=== PATIENT | female | born 1960 | race African-American/Black ===

== ENCOUNTER 2017-08-21 19:51 | Inpatient (IN) | payer OTHER, MEDICARE ==
[~2017-08-21] VITALS: Ht 162.6 cm; Wt 104.0 kg
[~2017-08-21 19:51] MED LIST: DICL-86 PO; HYDR10TA16 PO; LISI10TA PO; METH500T3 PO; XANA1TAB6 PO
[2017-08-21 19:53] VITALS: BP 135/64; PULSE 107; RESP 20; TEMP 101.7; O2SAT 97
[2017-08-21] MEDS ORDERED: ALPR1TAB3 PO (20:03)
[2017-08-21] MEDS ORDERED: PANT40TA3 PO (20:03)
[2017-08-21] MEDS ORDERED: LEXA10TA PO (20:03)
[2017-08-21] MEDS ORDERED: LIDO1CRE31 TOPICAL (20:06)
[2017-08-21] MEDS ORDERED: OXYC30TA PO (20:06)
[2017-08-21] MEDS ORDERED: FENT50DI T-DERMAL (20:06)
--- NOTE | 2017-08-21 20:43 | PD ---
HPI Chief Complaint: Fever Time Seen by Provider: 20:38 Travel History International Travel<30 days: No Contact w/Intl Traveler<30days: No Traveled to known affect area: No History of Present Illness HPI PATIANGELIC RECENTLY STARTED CHEMO, AND NOW HAS DEVELOPED FEVER. CONTINUES TO COMPLAIN OF ABD PAIN (BASED ON DR STEVENSON'S NOTE WHICH WAS REVIEWED THERE'S EVIDENCE OF POORLY DIFFERENTIATED METASTATIC CANCER). and per family has not been herself, not recognizing family and taking a long time to reply back or to recognize family. on aug 15 patient was started on chemo. at the same time due to her chronic abd pain complaint to dr stevenson, he decided to increase fentanyl patch, increase roxycet as well. family noticed patients increase confusion the day after these changes. chart and rn notes reviewed PFSH Past Medical History Arthritis: Yes Anxiety: Yes Cancer: Yes (LIVER) Cardiovascular Problems: Yes High Cholesterol: Yes Diabetes: No Diminished Hearing: No Hepatitis: Yes Hypertension: Yes Tetanus Vaccination: > 5 Years Influenza Vaccination: No : 2 Para: 2 Past Surgical History Hysterectomy: Yes Family History Family Myocardial Infarction: Yes Social History Alcohol Use: Yes (OCCASIONALLY BEER AND ALCOHOL) Tobacco Use: Yes Substance Use: No Allergies-Medications (Allergen,Severity, Reaction): Coded Allergies: Iodinated Contrast- Oral and IV Dye (Verified Allergy, Unknown, 08/21/17) Reported Meds & Prescriptions Reported Meds & Active Scripts Active Reported Lidopril Topical (Lidocaine-Prilocaine Topical) 2.5-2.5 % Cream 1 Applic TOPICAL BID PRN Fentanyl Patch 72 HR (Fentanyl) 50 Mcg/Hr Patch 50 Mcg T-DERMAL Q72H Remove old patch when new one placed. Oxycodone (Oxycodone HCl) 30 Mg Tab 30 Mg PO Q8H PRN Alprazolam 1 Mg Tab 1 Mg PO BID PRN Lexapro (Escitalopram Oxalate) 10 Mg Tab 10 Mg PO DAILY Pantoprazole (Pantoprazole Sodium) 40 Mg Tab 40 Mg PO DAILY Review of Systems Except as stated in HPI: all other systems reviewed are Neg General / Constitutional: Positive: Fever (ON CHEMO) Eyes: No: Visual changes HENT: No: Headaches Cardiovascular: No: Chest Pain or Discomfort Respiratory: No: Shortness of Breath Gastrointestinal: Positive: Abdominal Pain Genitourinary: No: Dysuria Musculoskeletal: No: Pain Skin: No Rash Neurologic: No: Weakness Psychiatric: No: Depression Endocrine: No: Polydipsia Hematologic/Lymphatic: No: Easy Bruising Physical Exam Narrative GENERAL: SKIN: Warm and dry. HEAD: Atraumatic. Normocephalic. EYES: Pupils equal and round. No scleral icterus. No injection or drainage. ENT: No nasal bleeding or discharge. Mucous membranes pink and moist. NECK: Trachea midline. No JVD. CARDIOVASCULAR: Regular rate and rhythm. RESPIRATORY: No accessory muscle use. Clear to auscultation. Breath sounds equal bilaterally. GASTROINTESTINAL: Abdomen soft, mildly tender over ruq , nondistended MUSCULOSKELETAL: Extremities without clubbing, cyanosis, or edema. No obvious deformities. NEUROLOGICAL: Awake and alert. No obvious cranial nerve deficits. Motor grossly within normal limits. Five out of 5 muscle strength in the arms and legs. Normal speech. PSYCHIATRIC: Appropriate mood and affect; insight and judgment normal. Data Data Last Documented VS Orders Orders Complete Blood Count With Diff (08/21/17 20:19) Comprehensive Metabolic Panel (08/21/17 20:19) Urinalysis - C+S If Indicated (08/21/17 20:19) Lactic Acid Sepsis Protocol (08/21/17 20:19) Blood Culture (08/21/17 20:19) Iv Access Insert/Monitor (08/21/17 20:19) Oxygen Administration (08/21/17 20:19) Oximetry (08/21/17 20:19) Cefepime Inj (Maxipime Inj) (08/21/17 20:44) Sodium Chlor 0.9% 1000 Ml Inj (Ns 1000 M (08/21/17 20:44) Abdomen, Flat & Upright (08/21/17 ) Ct Brain W/O Iv Contrast(Rout) (08/21/17 21:29) Admit To Inpatient (08/22/17 ) Vital Signs (Adult) Q4H (08/22/17 00:12) Activity Oob With Assistance (08/22/17 00:12) Envelope Fold Operator / Telemetry .CONTINUOUS (08/22/17 00:12) Sodium Chloride 0.9% Flush (Ns Flush) (08/22/17 00:15) Sodium Chloride 0.9% Flush (Ns Flush) (08/22/17 09:00) Basic Metabolic Panel (Bmp) (08/22/17 06:00) Complete Blood Count With Diff (08/22/17 06:00) Pt Request For Service (08/22/17 00:12) Case Management Consult (08/22/17 00:12) Naloxone Inj (Narcan Inj) (08/22/17 00:15) Inpatient Certification (08/22/17 ) Lactic Acid (08/22/17 06:00) Labs Laboratory Tests Test 08/21/17 20:29 08/21/17 23:32 08/22/17 00:01 White Blood Count 11.0 TH/MM3 Red Blood Count 2.47 MIL/MM3 Hemoglobin 7.3 GM/DL Hematocrit 23.0 % Mean Corpuscular Volume 93.3 FL Mean Corpuscular Hemoglobin 29.8 PG Mean Corpuscular Hemoglobin Concent 31.9 % Red Cell Distribution Width 20.6 % Platelet Count 66 TH/MM3 Mean Platelet Volume 8.7 FL Neutrophils (%) (Auto) 89.9 % Lymphocytes (%) (Auto) 8.3 % Monocytes (%) (Auto) 0.6 % Eosinophils (%) (Auto) 0.8 % Basophils (%) (Auto) 0.4 % Neutrophils # (Auto) 9.9 TH/MM3 Lymphocytes # (Auto) 0.9 TH/MM3 Monocytes # (Auto) 0.1 TH/MM3 Eosinophils # (Auto) 0.1 TH/MM3 Basophils # (Auto) 0.0 TH/MM3 CBC Comment AUTO DIFF Differential Comment AUTO DIFF CONFIRMED Platelet Estimate LOW Platelet Morphology Comment NORMAL Tear Drop Cells 1+ Ovalocytes 1+ Blood Urea Nitrogen 9 MG/DL Creatinine 0.80 MG/DL Random Glucose 122 MG/DL Total Protein 8.0 GM/DL Albumin 2.0 GM/DL Calcium Level 9.0 MG/DL Alkaline Phosphatase 141 U/L Aspartate Amino Transf (AST/SGOT) 46 U/L Alanine Aminotransferase (ALT/SGPT) 7 U/L Total Bilirubin 1.4 MG/DL Sodium Level 136 MEQ/L Potassium Level 4.4 MEQ/L Chloride Level 106 MEQ/L Carbon Dioxide Level 23.8 MEQ/L Anion Gap 6 MEQ/L Estimat Glomerular Filtration Rate 89 ML/MIN Lactic Acid Level 2.3 mmol/L 2.6 mmol/L Urine Color YELLOW Urine Turbidity HAZY Urine pH 6.0 Urine Specific [place] 1.019 Urine Protein 30 mg/dL Urine Glucose (UA) NEG mg/dL Urine Ketones NEG mg/dL Urine Occult Blood SMALL Urine Nitrite NEG Urine Bilirubin NEG Urine Urobilinogen 2.0 MG/DL Urine Leukocyte Esterase LARGE Urine RBC 50 /hpf Urine WBC /hpf Urine WBC Clumps FEW Urine Squamous Epithelial Cells 1 /hpf Urine Bacteria FEW /hpf Urine Mucus FEW /lpf Microscopic Urinalysis Comment CULTURE INDICATED MDM Medical Decision Making Medical Screen Exam Complete: Yes Emergency Medical Condition: Yes Medical Record Reviewed: Yes Differential Diagnosis UTI V PNA V NEUTROPENIC FEVER v fuo Narrative Course patient found to have mild lactic acidosis, anemia on cbc, although no leukocytosis pt had left shift neutrophilia found...due to these findings and h/ o chemo, patient empirically treated with ivf and cefepime. patient will be admitted to hospital for further treatment. in my estmation, her confusion is most likely due to increase in narcotic medication with decreased liver metbolism due to mets and hep c. Critical Care Narrative CRITICAL CARE NOTE: With evaluation of the patient, labs, EKG, receipt of radiologic studies, administration of medications, reevaluation the patient and discussion of the patient with the admitting physicians, the total critical care time was [45] minutes. Time to perform other separately billable procedures was not included in the critical care time. Diagnosis Primary Impression: Fever of unknown origin (FUO) Additional Impression: fever on chemotherapy Admitting Information Admitting Physician Requests: Admit Ruddy Mo MD Aug 21, 2017 20:43
[2017-08-21] MEDS ORDERED: SODIUM CHLOR 0.9% 1000 ML INJ 1,000 ML IV ONE (20:44)
[2017-08-21] MEDS ORDERED: CEFEPIME INJ 2,000 MG in SODIUM CHLORIDE 0.9% INJ 100 ML IV STA (20:44)
[2017-08-21 20:49] LABS: AUTOMATED NEUTROPHIL # 9.9 TH/MM3 (1.8-7.7); BASOPHIL % 0.4 % (0.0-2.0); EOSINOPHIL # 0.1 TH/MM3 (0-0.4); EOSINOPHIL % 0.8 % (0.0-4.0); LYMPH % 8.3 % (9.0-44.0); LYMPHOCYTE # 0.9 TH/MM3 (1.0-4.8); MEAN CELL VOLUME 93.3 FL (80.0-100.0); MEAN CORPUSCULAR HEMOGLOBIN 29.8 PG (27.0-34.0); MEAN CORPUSCULAR HGB CONC 31.9 % (32.0-36.0); MONO % 0.6 % (0.0-8.0); NEUT % 89.9 % (16.0-70.0); PLATELET COUNT 66 TH/MM3 (150-450); RED BLOOD COUNT 2.47 MIL/MM3 (4.00-5.30); RED CELL DISTRIBUTION WIDTH 20.6 % (11.6-17.2)
[2017-08-21 20:53] LABS: HEMO FLAGS AUTO DIFF
[2017-08-21 20:58] LABS: ANION GAP 6 MEQ/L (5-15); AST (GOT) 46 U/L (15-37); BICARBONATE 23.8 MEQ/L (21.0-32.0); BLOOD UREA NITROGEN 9 MG/DL (7-18); CHLORIDE 106 MEQ/L (98-107); GLOMERULAR FILTRATION RATE 89 ML/MIN (>89); POTASSIUM 4.4 MEQ/L (3.5-5.1); SODIUM (NA) 136 MEQ/L (136-145)
[2017-08-21 20:59] LABS: ALT (GPT) 7 U/L (10-53)
[2017-08-21 21:01] LABS: ALKALINE PHOSPHATASE 141 U/L (45-117); TOTAL BILIRUBIN ADULT 1.4 MG/DL (0.2-1.0)
[2017-08-21 21:26] LABS: PLATELET ESTIMATE SMEAR LOW (NORMAL); PLATELET MORPHOLOGY NORMAL (NORMAL); SCAN/DIFF AUTO DIFF CONFIRMED
[2017-08-21 21:27] LABS: TEARDROP RBCS 1+ (NORMAL)
[2017-08-21 21:28] LABS: OVALOCYTES 1+ (NORMAL)
--- NOTE | 2017-08-21 22:03 | RADRPT ---
EXAM DATE/TIME: 08/21/2017 21:53 [facility] COMPARISON: No previous studies available for comparison. INDICATIONS : Altered mental status. Fever. RADIATION DOSE: 41.22 CTDIvol (mGy) MEDICAL HISTORY : Hypertension. Liver cancer. Chemotherapy. SURGICAL HISTORY : None. ENCOUNTER: Initial ACUITY: 1 day PAIN SCALE: 0/10 LOCATION: cranial TECHNIQUE: Multiple contiguous axial images were obtained of the head. Using automated exposure control and adj ustment of the mA and/or kV according to patient size, radiation dose was kept as low as reasonably a chievable to obtain optimal diagnostic quality images. DICOM format image data is available electro nically for review and comparison. FINDINGS: There is no evidence for intracranial hemorrhage, mass effect, mass lesions, edema, or extra-axial fl uid collections. The visualized bony structures appear intact. The ventricles are normal size for t he patient's age. There are no signs of acute infarction for technique. CONCLUSION: Unremarkable study. Irasema Araujo MD on August 21, 2017 at 22:02 Board Certified Radiologist. This report was verified electronically.
[2017-08-21 22:05] VITALS: BP 112/54; PULSE 96; RESP 18; TEMP 100.6; O2SAT 100
--- NOTE | 2017-08-21 22:09 | RADRPT ---
EXAM DATE/TIME: 08/21/2017 21:44 [facility] COMPARISON: No previous studies available for comparison. INDICATIONS : Abdominal pain. MEDICAL HISTORY : Hypercholesterolemia. Hypertension Hepatitis. Liver cancer. SURGICAL HISTORY : Hysterectomy. ENCOUNTER: Initial ACUITY: 1 day PAIN SCORE: Non-responsive. LOCATION: abdomen. FINDINGS: The bowel gas is nonspecific. There are no signs of obstruction or free air for technique. No defini te calcified stones are identified for technique. CONCLUSION: Nonspecific abdomen. Irasema Araujo MD on August 21, 2017 at 22:07 Board Certified Radiologist. This report was verified electronically.
[2017-08-21 22:38] LABS: LACTIC ACID GHOST NOT REPORTABLE
[2017-08-22] VITALS (11 sets, daily range): BP systolic 86–154; BP diastolic 44–80; PULSE 79–96; RESP 16–20; TEMP 98.7–101.7; O2SAT 97–100
[2017-08-22] MEDS ORDERED: NALOXONE HCL 0.4 MG/ML AMP IV PUSH PRN (00:15)
[2017-08-22] MEDS ORDERED: SODIUM CHLORIDE 0.9% FLUSH 10 ML FLUSH IV FLUSH PRN (00:15)
[2017-08-22 00:35] LABS: BACTERIA, URINE FEW /hpf; BLOOD, URINE SMALL (NEG); COMMENT (UR) CULTURE INDICATED; CULTURE IF INDICATED CULTURE INDICATED; GLUCOSE,URINE NEG (NEG); KETONE, URINE NEG (NEG); MUCUS URINE FEW /lpf (OCC); NITRITE,URINE NEG (NEG); SQUAMOUS EPITHELIAL CELL URINE 1 /hpf (0-5); URINE COLOR YELLOW (YELLW/STRAW)
[2017-08-22] MEDS ORDERED: HYDROmorphone HCL PF 0.5 MG/0.5 ML SYRINGE IV PUSH PRN (02:30)
--- NOTE | 2017-08-22 03:30 | HHI.HP ---
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 Lewis on 08/22/17 at 03:30. The patient states that she came to hospital due to severe stomach pains. She states this pain has gotten progressively worsened despite pain medication adjustments by her oncologist Dr. Camarena on August 15, 2017. The patient also endorses that her family was concerned about her being a little confused. She reports that she fell at home yesterday. She denies hitting her head when she fell. Denies syncope. She states that she lost balance when she stood to get out of bed. She reports fevers but is unsure how long she's been having fevers. She denies cough, dysuria, nausea, vomiting, or diarrhea that she can recall. Review of Systems Except as stated in HPI: all other systems reviewed are Neg Past Family Social History Past Medical History Hepatitis C without liver cirrhosis - took medication - interferon - for it - states she got rid of it Cancer Denies diabetes, hypertension, CHF, heart problems, COPD, breathing problems, kidney problems, CVA, PE, DVT, thyroid problems Past Surgical History Hysterectomy 2 back surgeries . Reported Medications Reported Meds & Active Scripts Active Reported Lidopril Topical (Lidocaine-Prilocaine Topical) 2.5-2.5 % Cream 1 Applic TOPICAL BID PRN Fentanyl Patch 72 HR (Fentanyl) 50 Mcg/Hr Patch 50 Mcg T-DERMAL Q72H Remove old patch when new one placed. Oxycodone (Oxycodone HCl) 30 Mg Tab 30 Mg PO Q8H PRN Alprazolam 1 Mg Tab 1 Mg PO BID PRN Lexapro (Escitalopram Oxalate) 10 Mg Tab 10 Mg PO DAILY Pantoprazole (Pantoprazole Sodium) 40 Mg Tab 40 Mg PO DAILY . Allergies: Coded Allergies: Iodinated Contrast- Oral and IV Dye (Verified Allergy, Unknown, 08/21/17) Active Ordered Medications Current Medications Cefepime HCl 2000 mg/Sodium Chloride 100 ml @ 200 mls/hr ONCE STAT IV Last administered on 08/21/17 22:13; Start 08/21/17 at 20:44; Stop 08/21/17 at 21 :13; Status DC Sodium Chloride 1,000 ml @ 1,000 mls/hr Q1H ONCE IV Last administered on 08/21 21:28; Start 08/21/17 at 20:44; Stop 08/21/17 at 21:43; Status DC Sodium Chloride (NS Flush) 2 ml UNSCH PRN IV FLUSH FLUSH AFTER USING IV ACCESS ; Start 08/22/17 at 00:15 Sodium Chloride (NS Flush) 2 ml BID IV FLUSH ; Start 08/22/17 at 09:00 Naloxone HCl (Narcan Inj) 0.4 mg UNSCH PRN IV PUSH SEE LABEL COMMENTS; Start 08/22/17 at 00:15 Cefepime HCl 2000 mg/Sodium Chloride 100 ml @ 200 mls/hr Q12H IV ; Start 08/22 at 08:00 Hydromorphone HCl (Dilaudid Pf Inj) 0.2 mg Q4H PRN IV PUSH pain >5 Last administered on 08/22/17 02:53; Start 08/22/17 at 02:30 . Family History Brother with diabetes mellitus . Social History Tobacco: quit 6 years ago Alcohol: denies heavy drinking ever Illicit Drugs: denies . Physical Exam Vital Signs Vital Signs Date Time Temp Pulse Resp B/P (MAP) Pulse Ox O2 Delivery O2 Flow Rate FiO2 08/22/17 01:53 99.8 92 18 112/66 (81) 97 08/22/17 00:30 100.1 Automatic Cuff 08/21/17 22:05 100.6 96 18 112/54 (73) 100 Room Air 08/21/17 19:53 101.7 107 20 135/64 (87) 97 Room Air Physical Exam GENERAL: This is a chronically ill-appearing patient, in no apparent distress. SKIN: No rashes. Cool and dry. HEAD: Atraumatic. Normocephalic. No temporal or scalp tenderness. EYES: No scleral icterus. No injection or drainage. ENT: Nose without bleeding, purulent drainage. Airway patent. NECK: Trachea midline. No JVD or lymphadenopathy. Supple, nontender, no meningeal signs. CARDIOVASCULAR: Regular rate and rhythm without murmurs, gallops, or rubs. RESPIRATORY: Clear to auscultation. Breath sounds equal bilaterally. No wheezes , rales, or rhonchi. GASTROINTESTINAL: Abdomen soft, nondistended. No guarding. Abdomen tender to palpation. MUSCULOSKELETAL: Extremities without clubbing, cyanosis, or edema. No calf tenderness. NEUROLOGICAL: Awake and alert. Motor and sensory grossly within normal limits. Normal speech. . Laboratory Laboratory Tests Test 08/21/17 20:29 08/21/17 23:32 08/22/17 00:01 White Blood Count 11.0 Red Blood Count 2.47 Hemoglobin 7.3 Hematocrit 23.0 Mean Corpuscular Volume 93.3 Mean Corpuscular Hemoglobin 29.8 Mean Corpuscular Hemoglobin Concent 31.9 Red Cell Distribution Width 20.6 Platelet Count 66 Mean Platelet Volume 8.7 Neutrophils (%) (Auto) 89.9 Lymphocytes (%) (Auto) 8.3 Monocytes (%) (Auto) 0.6 Eosinophils (%) (Auto) 0.8 Basophils (%) (Auto) 0.4 Neutrophils # (Auto) 9.9 Lymphocytes # (Auto) 0.9 Monocytes # (Auto) 0.1 Eosinophils # (Auto) 0.1 Basophils # (Auto) 0.0 CBC Comment AUTO DIFF Differential Comment AUTO DIFF CONFIRMED Platelet Estimate LOW Platelet Morphology Comment NORMAL Tear Drop Cells 1+ Ovalocytes 1+ Blood Urea Nitrogen 9 Creatinine 0.80 Random Glucose 122 Total Protein 8.0 Albumin 2.0 Calcium Level 9.0 Alkaline Phosphatase 141 Aspartate Amino Transf (AST/SGOT) 46 Alanine Aminotransferase (ALT/SGPT) 7 Total Bilirubin 1.4 Sodium Level 136 Potassium Level 4.4 Chloride Level 106 Carbon Dioxide Level 23.8 Anion Gap 6 Estimat Glomerular Filtration Rate 89 Lactic Acid Level 2.3 2.6 Urine Color YELLOW Urine Turbidity HAZY Urine pH 6.0 Urine Specific [place] 1.019 Urine Protein 30 Urine Glucose (UA) NEG Urine Ketones NEG Urine Occult Blood SMALL Urine Nitrite NEG Urine Bilirubin NEG Urine Urobilinogen 2.0 Urine Leukocyte Esterase LARGE Urine RBC 50 Urine WBC Urine WBC Clumps FEW Urine Squamous Epithelial Cells 1 Urine Bacteria FEW Urine Mucus FEW Microscopic Urinalysis Comment CULTURE INDICATED Date/Time Source Procedure Growth Status 08/21/17 20:30 Blood Peripheral Aerobic Blood Culture Pending Received 08/21/17 20:30 Blood Peripheral Anaerobic Blood Culture Pending Received 08/22/17 00:01 Urine Random Urine Urine Culture Pending Received Result Diagram: 08/21/[id number]/21/172028 Imaging Last Impressions Head CT 08/21/172128 Signed Impressions: Service Date/Time: Monday, August 21, 2017 21:53 - CONCLUSION: Unremarkable study. Irasema Araujo MD Abdomen X-Ray 08/21/17 0000 Signed Impressions: Service Date/Time: Monday, August 21, 2017 21:44 - CONCLUSION: Nonspecific abdomen. Irasema Araujo MD . Caprini VTE Risk Assessment Caprini VTE Risk Assessment: Mod/High Risk (score >= 2) Caprini Risk Assessment Model Point Value = 1 Point Value = 2 Point Value = 3 Point Value = 5 Age 41-60 Minor surgery BMI > 25 kg/m2 Swollen legs Varicose veins or History of unexplained or recurrent spontaneous Oral contraceptives or hormone replacement Sepsis (< 1 month) Serious lung disease, including pneumonia (< 1 month) Abnormal pulmonary function Acute myocardial infarction Congestive heart failure (< 1 month) History of inflammatory bowel disease Medical patient at bed rest Age 61-74 Arthroscopic surgery Major open surgery (> 45 min) Laparoscopic surgery (> 45 min) Malignancy Confined to bed (> 72 hours) Immobilizing plaster cast Central venous access Age >= 75 History of VTE Family history of VTE Factor V Leiden Prothrombin [id number] Lupus anticoagulant Anticardiolipin antibodies Elevated serum homocysteine Heparin-induced thrombocytopenia Other congenital or acquired thrombophilia Stroke (< 1 month) Elective arthroplasty Hip, pelvis, or leg fracture Acute spinal cord injury (< 1 month) Prophylaxis Regimen Total Risk Factor Score Risk Level Prophylaxis Regimen 0-1 Low Early ambulation 2 Moderate Order ONE of the following: *Sequential Compression Device (SCD) *Heparin 5000 units SQ BID 3-4 Higher Order ONE of the following medications: *Heparin 5000 units SQ TID *Enoxaparin/Lovenox 40 mg SQ daily (WT < 150 kg, CrCl > 30 mL/min) *Enoxaparin/Lovenox 30 mg SQ daily (WT < 150 kg, CrCl > 10-29 mL/min) *Enoxaparin/Lovenox 30 mg SQ BID (WT < 150 kg, CrCl > 30 mL/min) AND/OR *Sequential Compression Device (SCD) 5 or more Highest Order ONE of the following medications: *Heparin 5000 units SQ TID (Preferred with Epidurals) *Enoxaparin/Lovenox 40 mg SQ daily (WT < 150 kg, CrCl > 30 mL/min) *Enoxaparin/Lovenox 30 mg SQ daily (WT < 150 kg, CrCl > 10-29 mL/min) *Enoxaparin/Lovenox 30 mg SQ BID (WT < 150 kg, CrCl > 30 mL/min) AND *Sequential Compression Device (SCD) Assessment and Plan Problem List: (1) Metastatic carcinoma involving liver with unknown primary site ICD Code: C78.7 - Secondary malignant neoplasm of liver and intrahepatic bile duct; C80.1 - Malignant (primary) neoplasm, unspecified (2) 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 Camarena, oncologist UTI suspected - Fevers, abnormal UA, neutrophilia on CBC with high normal WBC of 11.0, lactic acidosis - Cefepime 2 grams IV q12h - await culture results and adjust treatment if needed DVT prophylaxis - Lovenox 40 mg subq q24h - (verbal order) . Discussed Condition With ER physician, patient, and patient's primary RN . Physician Certification 2 Midnight Certification Type: Admission for Inpatient Services Order for Inpatient Services The services are ordered in accordance with Medicare regulations or non- Medicare payer requirements, as applicable. In the case of services not specified as inpatient-only, they are appropriately provided as inpatient services in accordance with the 2-midnight benchmark. Estimated LOS (days): 3 days is the estimated time the patient will need to remain in the hospital, assuming treatment plan goals are met and no additional complications. Post-Hospital Plan: Home Karime Quintanilla Aug 22, 2017 03:30
[2017-08-22] MEDS: ENOXAPARIN SODIUM 40 MG/0.4 ML SYRINGE SQ SCH (04:29)
[2017-08-22] MEDS: HYDROmorphone HCL PF 0.5 MG/0.5 ML SYRINGE IV PUSH PRN ×2 (04:58→08:10)
[2017-08-22 06:28] LABS: AUTOMATED NEUTROPHIL # 6.3 TH/MM3 (1.8-7.7); BASOPHIL % 0.6 % (0.0-2.0); EOSINOPHIL % 0.5 % (0.0-4.0); LYMPH % 10.5 % (9.0-44.0); LYMPHOCYTE # 0.8 TH/MM3 (1.0-4.8); MEAN CELL VOLUME 93.1 FL (80.0-100.0); MEAN CORPUSCULAR HEMOGLOBIN 30.6 PG (27.0-34.0); MEAN CORPUSCULAR HGB CONC 32.9 % (32.0-36.0); MONO % 0.7 % (0.0-8.0); NEUT % 87.7 % (16.0-70.0); PLATELET COUNT 38 TH/MM3 (150-450); RED BLOOD COUNT 1.93 MIL/MM3 (4.00-5.30); RED CELL DISTRIBUTION WIDTH 20.4 % (11.6-17.2); WHITE BLOOD COUNT 7.2 TH/MM3 (4.0-11.0)
[2017-08-22 06:32] LABS: HEMO FLAGS AUTO DIFF
[2017-08-22 06:34] LABS: HEMATOCRIT 17.9 % (35.0-46.0)
[2017-08-22 07:08] LABS: BICARBONATE 25.3 MEQ/L (21.0-32.0); POTASSIUM 4.1 MEQ/L (3.5-5.1)
[2017-08-22 07:40] LABS: PLATELET ESTIMATE SMEAR LOW (NORMAL); PLATELET MORPHOLOGY NORMAL (NORMAL); SCAN/DIFF AUTO DIFF CONFIRMED
[2017-08-22] MEDS ORDERED: SODIUM CHLOR 0.9% 250 ML INJ 250 ML IV ONE (08:15)
--- NOTE | 2017-08-22 08:33 | MB ---
cc: JACK STEVENSON M.D. DATE OF CONSULTATION August 22, 2017. ATTENDING PHYSICIAN Dr. Lewis REASON FOR CONSULTATION Oncology consulted to render opinion for this patient with metastatic carcinoma, unknown primary, admitted with mental status change and febrile illness. HISTORY OF PRESENT ILLNESS The patient is a very pleasant 56-year-old female a with history of metastatic poorly differentiated carcinoma of unknown primary. She has been through various chemotherapy in October of 2016. She recently developed progression of disease and was given her first cycle of doxorubicin last Sunday. She stated she has not been feeling well. She is a little confused and cannot really recall much detail. She thinks this past Sunday she started having increased weakness. Her daughter thinks that the patient is confused. She also fell when she lost her balance while getting out of bed. She denies any trauma to the head or loss of consciousness. On presentation she was noted to have a temperature of 101.7. She had some subjective chills. She has not been eating well for several days. She denies any nausea, vomiting or diarrhea. She has pain in the upper abdomen which seems to be a little worse. She denies any chest pressure. She has no shortness of breath or cough. PAST MEDICAL HISTORY 1. 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 2. Hepatitis C. 3. Anxiety. 4. Osteoarthritis. 5. Hypertension. PAST SURGICAL HISTORY 1. Complete hysterectomy. 2. Back surgery twice. 3. Port placement. FAMILY HISTORY Noncontributory. SOCIAL HISTORY A 20 pack-year smoking history, quit about 6 years ago. Denies any alcohol use. ALLERGIES CONTRAST. OUTPATIENT MEDICATIONS 1. Xanax. 2. Lexapro. 3. Fentanyl patch. 4. Oxycodone. 5. Protonix. REVIEW OF SYSTEMS CONSTITUTIONAL: As above. EYES: Negative. ENT: Negative. CARDIOVASCULAR: Denies chest pressure, palpitation. RESPIRATORY: Negative. GI: As above. : As above. MUSCULOSKELETAL: As above. HEMATOLOGY: As above. ENDOCRINE: Negative. DERMATOLOGY: Negative. PSYCHIATRIC: She is a little depressed. NEUROLOGIC: As above. PHYSICAL EXAMINATION VITALS: T-max 101.7, T-current 99.6, blood pressure 101/54, O2 saturation 99% on room air. GENERAL: She is alert. She is oriented x3. She is in no acute distress but looks very weak. HEENT: Atraumatic, normocephalic. Pupils equal, round and light. Extraocular muscles intact. No scleral icterus. Oropharynx - dry mucosa. NECK: No thyromegaly. No palpable mass. LYMPHATIC: No palpable cervical, clavicular or axillary lymph node. CARDIOVASCULAR: Regular S1-S2. No murmur. LUNGS: Clear to auscultation bilaterally. Abdomen: Soft, tender in the upper abdomen. No rebound, no rigidity. Positive bowel sounds. EXTREMITY EXAM: No cyanosis, clubbing or edema. SKIN: No rash or petechiae. NEUROLOGIC: Exam nonfocal. LABORATORY DATA Reviewed ASSESSMENT 1. Metastatic poorly differentiated carcinoma, unknown primary. She has metastatic disease in the liver and bone. She was first diagnosed in December of 2015. Workup did not showed the primary tumor. She had been treated with various chemotherapy. She recently finished a course of topotecan but developed progression disease. She just started first cycle of doxorubicin last week. It is too early to assess response at this time. She has a increased abdominal pain likely due to metastatic disease. We will get a CT of the abdomen and pelvis for further evaluation. 3. Febrile illness. She came in with a temperature of 101.7. Urinalysis showed possible urinary tract infection. Urine culture and blood culture is pending. She is started on cefepime. Her temperature has trended down. 4. Anemia due to anemia of chronic disease as well as recent chemotherapy. Hemoglobin trended down to 5.9 after hydration. We will give her 2 units of packed red blood cell transfusion. 5. Thrombocytopenia due to recent chemotherapy as well as underlying liver disease. Continue to monitor. She has no evidence of bleeding at this time. 6. History of hepatitis. She was treated with interferon in the past. 7. Hypertension, stable. RECOMMENDATIONS 1. Get CT of the abdomen and pelvis without contrast. 2. Continue to titrate pain medication. 3. Restart the fentanyl patch and oxycodone. 4. Continue antibiotic per primary team pending culture. 5. Transfuse 2 units of packed red blood cells. 6. Monitor CBC and transfuse as needed. 7. DVT prophylaxis with SCDs. Thank you Dr. Lewis for asking me to see this patient. MD FRAN Russell/ANGIE /7:53 AM /8:06 AM ROSEMARIE
[2017-08-22] MEDS ORDERED: fentaNYL 50 MCG/HR PATCH T-DERMAL SCH (09:00)
--- NOTE | 2017-08-22 09:16 | HHI.PR ---
Addendum to Inpatient Note Additional Information Patient seen/examined. Daughter at bedside. Patient was admitted due to intractable pain, confusion. She has been seeing Heme/onc for metastatic cancer of unknown primary. Daughter states that patient does not want to do any more chemotherapy. However, this decision is not firm. We will start her on Fentanyl patch, oxycodone and keep Dilaudid IV for breakthrough pain. Appreciate Oncology input. Patient will receive blood transfusion. Will consult Palliative care as well. Lizzy Troncoso DO Aug 22, 2017 9:16 am
[2017-08-22] MEDS: CEFEPIME INJ 2,000 MG in SODIUM CHLORIDE 0.9% INJ 100 ML IV SCH ×2 (10:15→20:36)
--- NOTE | 2017-08-22 11:44 | PD.CONS ---
Consult Service Palliative Care Consult Requested By Dr. Troncoso . Primary Care Physician Susan Becker MD . Reason for Consultation a. To assist with evaluation and management of symptoms including: Pain, confusion b. To assist medical decision maker(s) with: better understanding of current medical conditions; weighing benefits/burdens of medical treatment options; making medical treatment decisions. . HPI History of Present Illness This 56-year-old female, with a past history of hypertension, anemia, and arthritis, was originally hospitalized in December 2015 2 undergo a planned bariatric surgical procedure. However, during the surgery, a liver mass was noted, and biopsy revealed non-small cell cancer poorly differentiated. A PET scan at that time revealed multiple liver masses and lytic lesions in bone. No primary source of the malignancy was found. The patient was begun on cisplatin and gemcitabine, but subsequent studies revealed progression. She was then started on Gemzar and Taxol, but again was noted to have progression of the disease. In November 2016, the patient was changed to Topotecan, and she was also given radiation to her right hip lesion to help with the pain. She was able to complete 14 cycles of the Topotecam and it seemed to stabilize her disease for a few months, but then a PET scan earlier this month revealed progression of the disease again. The patient was offered additional chemotherapy, doxorubicin, and she agreed to try that, receiving the first dose 7 days ago. At that same time, because she was having more abdominal pain, her fentanyl patch was increased from 25-50 g. Beginning on 08/16/17, the patient developed mild but increasing confusion, culminating in moderate confusion and a presentation to the hospital on 08/21/17. In the emergency department, findings included: * Confusion, weakness * Temp 101.7, pulse 107, respirations 20, blood pressure 135/64, oxygen saturation 97% on room air * White count 11.0, hemoglobin 7.3 * Sodium 136, creatinine 0.8 * Lactic acid 2.3 * CT scan of the head without acute disease * Abdominal x-ray nonspecific * Urinalysis with positive leukocyte esterase and a few WBC clumps Cultures were obtained, the patient was begun on antibiotics, and she was admitted to the hospital. Her hemoglobin decreased to 5.9, and platelets 38, 000 this morning. The patient complained of worsening abdominal pain, and has received her fentanyl, her PRN 30 mg oxycodone, and she also has some parenteral Dilaudid available. The patient feels fatigued, weak. The patient' s daughters note that she has lost several pounds over the past couple months, and has a decreased appetite now. The patient's daughters share with me that the patient told them last week she wished she would not have begun on the new chemotherapy, wondering why the daughters did not "speak up for me and stop it." Today, the patient confirms that she does not want to receive any more chemotherapy, and she is ready to transition to focusing on comfort. Her daughters are both in agreement. Palliative Care was consulted to assist with symptom management, and to enter into discussions with the patient and family regarding her illness, the prognosis, and the benefits and burdens of the various treatment choices. . Function/Cognitive Trajectory Prior to this hospitalization, the patient was weak, but is able to ambulate independently and provide her self-care. She was still driving as recently as last week. . Review of Systems ROS Limitations: Altered Mental Status (mild confusion) Constitutional: COMPLAINS OF: Fatigue, Fever, Weight loss Endocrine: DENIES: Polyuria Eyes: DENIES: Eye inflammation Ears, nose, mouth, throat: DENIES: Epistaxis Respiratory: DENIES: Cough, Shortness of breath Cardiovascular: DENIES: Chest pain, Dyspnea on Exertion, Claudication Gastrointestinal: DENIES: Constipation, Diarrhea, Vomiting Genitourinary: DENIES: Hematuria Musculoskeletal: COMPLAINS OF: Back pain (chronic) Integumentary: DENIES: Rash Hematologic/Lymphatics: DENIES: Lymphadenopathy Immunologic/Allergic: DENIES: Urticaria Neurologic: DENIES: Localized weakness, Seizures Psychiatric: COMPLAINS OF: Anxiety (intermittent), Confusion (as noted in history of present illness), DENIES: Hallucinations, Agitation Past Family Social History Coded Allergies: Iodinated Contrast- Oral and IV Dye (Verified Allergy, Unknown, 08/21/17) Past Medical History * Widely metastatic non-small cell poorly differentiated cancer, unknown primary * Anemia * Hypertension * Osteoarthritis * Anxiety * Hepatitis C 2002 . Past Surgical History * Hysterectomy 1988 * Salpingo-oophorectomy 1990 * 2 back surgeries several years ago * Port * Incomplete bariatric surgical procedure December 2015 . . Reported Medications . Reported Meds & Active Scripts Active Reported Lidopril Topical (Lidocaine-Prilocaine Topical) 2.5-2.5 % Cream 1 Applic TOPICAL BID PRN Fentanyl Patch 72 HR (Fentanyl) 50 Mcg/Hr Patch 50 Mcg T-DERMAL Q72H Remove old patch when new one placed. Oxycodone (Oxycodone HCl) 30 Mg Tab 30 Mg PO Q8H PRN Alprazolam 1 Mg Tab 1 Mg PO BID PRN Lexapro (Escitalopram Oxalate) 10 Mg Tab 10 Mg PO DAILY Pantoprazole (Pantoprazole Sodium) 40 Mg Tab 40 Mg PO DAILY . Current Medications Medications (Trade) Dose Ordered Sig/Amanda Route Start Time Stop Time Status Last Admin (NS Flush) 2 ml UNSCH PRN IV FLUSH 08/22/17 00:15 (NS Flush) 2 ml BID IV FLUSH 08/22/17 09:00 (Narcan Inj) 0.4 mg UNSCH PRN IV PUSH 08/22/17 00:15 Cefepime HCl 2000 mg/Sodium Chloride 100 ml @ 200 mls/hr Q12H IV 08/22/17 08:00 08/22/17 10:15 (Dilaudid Pf Inj) 0.5 mg Q2H PRN IV PUSH 08/22/17 03:30 08/22/17 08:10 (Lovenox Inj) 40 mg Q24H SQ 08/22/17 03:30 08/22/17 04:29 Sodium Chloride 250 ml @ 15 mls/hr ONCE ONCE IV 08/22/17 08:15 08/23/17 00:54 (Tylenol) 650 mg Q4H PRN PO 08/22/17 08:15 (Benadryl) 25 mg Q4H PRN PO 08/22/17 08:15 (Roxicodone) 30 mg Q8H PRN PO 08/22/17 10:30 (Duragesic 25 Mcg Patch.72 Hr) 1 patch Q3D T-DERMAL 08/22/17 11:00 Miscellaneous Information 1 Q3D T-DERMAL 08/25/17 11:00 Family History The patient's mother of some form of GI cancer, and her sister of pancreatic cancer. One brother has diabetes. . . Substance Use Tobacco: She quit smoking about 6 years ago Alcohol: None Prescription med abuse: None Illicits: None . Psychosocial History The patient was born in [place], but moved to this area many years ago. After she was in 2010, she lived alone until moving in with her daughter about 6 or 8 months ago. The patient is disabled from back pain. She was , in 2010. She has 2 daughters, both living in this area. . Spiritual/Cultural Factors The patient has a Roman Catholic background, and her spirituality has been important for her. She would like a shirt folding machine operator to come and visit her while she is in the hospital. . Living Will: Copy in medical record Health Care Surrogate: Copy in medical record Date completed: March 2017 Health Care Surrogate(s): Daughter Margo Jones . Documented care wishes: The patient has a living will with typical language . Today's verbally stated goals: The patient tells me she definitely would not want to be resuscitated, and she is now sure that she wants to stop chemotherapy and further aggressive care. Family/friends goals: Both of her daughters support her wishes. . Ethical and Legal Issues There are no ethical issues that would impact her care or decision-making at this time. The patient has some mild intermittent confusion, but I do believe she has capacity for making healthcare decisions at this time. She has designated her daughter Margo as healthcare surrogate. . Physical Exam Vital Signs Date Time Temp Pulse Resp B/P (MAP) Pulse Ox O2 Delivery O2 Flow Rate FiO2 08/22/17 08:40 18 08/22/17 04:29 82 08/22/17 04:26 99.6 83 16 101/54 (70) 99 08/22/17 02:23 91 08/22/17 01:53 99.8 92 18 112/66 (81) 97 08/22/17 00:30 100.1 Automatic Cuff 08/21/17 22:05 100.6 96 18 112/54 (73) 100 Room Air 08/21/17 19:53 101.7 107 20 135/64 (87) 97 Room Air Exam CONSTITUTIONAL/GENERAL: This is a weak, fatigued patient, in no apparent distress. TUBES/LINES/DRAINS: Peripheral IV SKIN: No jaundice, rashes, or lesions. Ecchymoses on upper extremities. No wounds seen anteriorly. Skin temperature appropriate. Not diaphoretic. HEAD: Atraumatic. Normocephalic. EYES: Pupils equal and round and reactive. Extraocular motions intact. No scleral icterus. No injection or drainage. Fundi not examined. ENT: Hearing grossly normal. Nose without bleeding or purulent drainage. NECK: Trachea midline. Supple, nontender. No palpable thyroid enlargement or nodularity. CARDIOVASCULAR: Regular rate and rhythm without murmurs, gallops, or rubs. No JVD. Peripheral pulses symmetric. RESPIRATORY/CHEST: Symmetric, unlabored respirations. Clear to auscultation. Breath sounds equal bilaterally. No wheezes, rales, or rhonchi. GASTROINTESTINAL: Abdomen soft, non-tender, nondistended. No hepato-splenomegaly , or palpable masses. No guarding. Bowel sounds present. GENITOURINARY: Without palpable bladder distension. MUSCULOSKELETAL: Extremities without clubbing, cyanosis, or edema. No joint tenderness or effusion noted. No calf tenderness. No mottling or clubbing. LYMPHATICS: No palpable cervical or supraclavicular adenopathy. NEUROLOGICAL: Awake and alert. Some weakness. Follows commands. Cognitively sharp. Moves all extremities. PSYCHIATRIC: No obvious anxiety/depression. no apparent hallucinations or other psychotic thought process. . Diagnostic Tests Laboratory Laboratory Tests Test 08/21/17 20:29 08/21/17 23:32 08/22/17 00:01 08/22/17 06:16 White Blood Count 11.0 TH/MM3 (4.0-11.0) 7.2 TH/MM3 (4.0-11.0) Red Blood Count 2.47 MIL/MM3 (4.00-5.30) 1.93 MIL/MM3 (4.00-5.30) Hemoglobin 7.3 GM/DL (11.6-15.3) 5.9 GM/DL (11.6-15.3) Hematocrit 23.0 % (35.0-46.0) 17.9 % (35.0-46.0) Mean Corpuscular Volume 93.3 FL (80.0-100.0) 93.1 FL (80.0-100.0) Mean Corpuscular Hemoglobin 29.8 PG (27.0-34.0) 30.6 PG (27.0-34.0) Mean Corpuscular Hemoglobin Concent 31.9 % (32.0-36.0) 32.9 % (32.0-36.0) Red Cell Distribution Width 20.6 % (11.6-17.2) 20.4 % (11.6-17.2) Platelet Count 66 TH/MM3 (150-450) 38 TH/MM3 (150-450) Mean Platelet Volume 8.7 FL (7.0-11.0) 7.7 FL (7.0-11.0) Neutrophils (%) (Auto) 89.9 % (16.0-70.0) 87.7 % (16.0-70.0) Lymphocytes (%) (Auto) 8.3 % (9.0-44.0) 10.5 % (9.0-44.0) Monocytes (%) (Auto) 0.6 % (0.0-8.0) 0.7 % (0.0-8.0) Eosinophils (%) (Auto) 0.8 % (0.0-4.0) 0.5 % (0.0-4.0) Basophils (%) (Auto) 0.4 % (0.0-2.0) 0.6 % (0.0-2.0) Neutrophils # (Auto) 9.9 TH/MM3 (1.8-7.7) 6.3 TH/MM3 (1.8-7.7) Lymphocytes # (Auto) 0.9 TH/MM3 (1.0-4.8) 0.8 TH/MM3 (1.0-4.8) Monocytes # (Auto) 0.1 TH/MM3 (0-0.9) 0.1 TH/MM3 (0-0.9) Eosinophils # (Auto) 0.1 TH/MM3 (0-0.4) 0.0 TH/MM3 (0-0.4) Basophils # (Auto) 0.0 TH/MM3 (0-0.2) 0.0 TH/MM3 (0-0.2) CBC Comment AUTO DIFF AUTO DIFF Differential Comment AUTO DIFF CONFIRMED AUTO DIFF CONFIRMED Platelet Estimate LOW (NORMAL) LOW (NORMAL) Platelet Morphology Comment NORMAL (NORMAL) NORMAL (NORMAL) Tear Drop Cells 1+ (NORMAL) Ovalocytes 1+ (NORMAL) Blood Urea Nitrogen 9 MG/DL (7-18) 8 MG/DL (7-18) Creatinine 0.80 MG/DL (0.50-1.00) 0.65 MG/DL (0.50-1.00) Random Glucose 122 MG/DL (74-106) 89 MG/DL (74-106) Total Protein 8.0 GM/DL (6.4-8.2) Albumin 2.0 GM/DL (3.4-5.0) Calcium Level 9.0 MG/DL (8.5-10.1) 8.2 MG/DL (8.5-10.1) Alkaline Phosphatase 141 U/L (45-117) Aspartate Amino Transf (AST/SGOT) 46 U/L (15-37) Alanine Aminotransferase (ALT/SGPT) 7 U/L (10-53) Total Bilirubin 1.4 MG/DL (0.2-1.0) Sodium Level 136 MEQ/L (136-145) 139 MEQ/L (136-145) Potassium Level 4.4 MEQ/L (3.5-5.1) 4.1 MEQ/L (3.5-5.1) Chloride Level 106 MEQ/L (98-107) 109 MEQ/L (98-107) Carbon Dioxide Level 23.8 MEQ/L (21.0-32.0) 25.3 MEQ/L (21.0-32.0) Anion Gap 6 MEQ/L (5-15) 5 MEQ/L (5-15) Estimat Glomerular Filtration Rate 89 ML/MIN (>89) 113 ML/MIN (>89) Lactic Acid Level 2.3 mmol/L (0.4-2.0) 2.6 mmol/L (0.4-2.0) 1.0 mmol/L (0.4-2.0) Urine Color YELLOW (YELLW/STRAW) Urine Turbidity HAZY (CLEAR) Urine pH 6.0 (5.0-8.5) Urine Specific [place] 1.019 (1.002-1.035) Urine Protein 30 mg/dL (NEG-TRACE) Urine Glucose (UA) NEG mg/dL (NEG) Urine Ketones NEG mg/dL (NEG) Urine Occult Blood SMALL (NEG) Urine Nitrite NEG (NEG) Urine Bilirubin NEG (NEG) Urine Urobilinogen 2.0 MG/DL (LESS THAN Urine Leukocyte Esterase LARGE (NEG) Urine RBC 50 /hpf (0-3) Urine WBC /hpf (0-5) Urine WBC Clumps FEW (NONE) Urine Squamous Epithelial Cells 1 /hpf (0-5) Urine Bacteria FEW /hpf (NONE) Urine Mucus FEW /lpf (OCC) Microscopic Urinalysis Comment CULTURE INDICATED Result Diagram: 08/22/17 0616 08/22/17 0616 Microbiology Microbiology Date/Time Source Procedure Growth Status 08/21/17 20:30 Blood Peripheral Aerobic Blood Culture - Preliminary NO GROWTH IN 1 DAY Resulted 08/21/17 20:30 Blood Peripheral Anaerobic Blood Culture - Preliminary NO GROWTH IN 1 DAY Resulted 08/21/17 20:15 Blood Peripheral Aerobic Blood Culture - Preliminary NO GROWTH IN 1 DAY Resulted 08/21/17 20:15 Blood Peripheral Anaerobic Blood Culture - Preliminary NO GROWTH IN 1 DAY Resulted 08/22/17 00:01 Urine Random Urine Urine Culture Pending Received Imaging Last Impressions Head CT 08/21/172128 Signed Impressions: Service Date/Time: Monday, August 21, 2017 21:53 - CONCLUSION: Unremarkable study. Irasema Araujo MD Abdomen X-Ray 08/21/17 0000 Signed Impressions: Service Date/Time: Monday, August 21, 2017 21:44 - CONCLUSION: Nonspecific abdomen. Irasema Araujo MD Patient/Family Conference Present at Family Conference: With me in the room with the patient, and both of her daughters . Family Conference Time (mins): 48 Family Conference Location: Bedside Issues Discussed: * Palliative care role, purpose, approach * Hospice care role, purpose, approach * Additional medical, psychosocial, and spiritual history * Patients general health, functional status, and cognitive changes in the months leading up to the current hospitalization * Patient/family understanding of the current medical problems * Patient/family understanding of prognosis * Patients goals of care as best understood from advance directives and/or conversations and/or values * Current medical treatment options and benefits/burdens of those options * Likely scenarios comparing ongoing aggressive care with a transition to comfort measures only * Questions answered to the best of my ability * Palliative care contact information provided The patient and her daughters want to transition to comfort care . Assessment and Plan Disease Oriented Problem List: (1) fever, possible sepsis, possible UTI (2) mild, intermittent confusion,likely due to infection (3) widely metastatic non-small cell cancer, unknown primary (4) anemia (5) hypertension (6) osteoarthritis (7) anxiety (8) hepatitis C 2003 Symptom Scale: (1) pain 0-10 Scale: 3 (2) anxiety 0-10 Scale: 1 (3) fatigue, weakness 0-10 Scale: 7 (worsening in recent weeks) Pertinent Non-Medical Issues Psychosocial: , 2 daughters, disabled due to back pain, lives with daughter. Spiritual: The patient has a Roman Catholic background, and her spirituality has been important for her. She would like a shirt folding machine operator to come and visit her while she is in the hospital. Legal: The patient has some mild intermittent confusion, but I do believe she has capacity for making healthcare decisions at this time. She has designated her daughter Margo as healthcare surrogate. Ethical issues impacting care: None . Important Contacts Daughter/HCS: Margo Jones [phone] Daughter: Sally Jones [phone] . Prognosis The patient is terminal, likely with weeks to live. She is appropriate for hospice services. . Code Status: No Code Plan * DO NOT RESUSCITATE, per request of patient and daughters 08/22/17 * DECISION-MAKING: The patient has some mild intermittent confusion, but I do believe she has capacity for making healthcare decisions at this time. She has designated her daughter Margo as healthcare surrogate. * GOALS: The patient tells me she definitely would not want to be resuscitated , and she is now sure that she wants to stop chemotherapy and further aggressive care. The patient and her daughters would like to speak with a hospice nurse about possibly engaging hospice services. * SYMPTOMS: The patient would like to continue her fentanyl and oxycodone for now for her pain. Her anxiety is also under control, and I have no additional medication recommendations at this time. * Shoe Salesman consulted to visit patient. * Hospice consult placed. * Palliative Care will continue to follow the patient during this hospitalization. . Time Spent Total Floor Time (mins): 84 Face to Face Time (mins): 60 >50% Counseling/Coord of Care: Yes (d/w Zain Wilhelm PA-C and w RN) Thank you for the opportunity to participate in the care of Ms. Klein. Attestation To help prompt me to consider important information that might be impacting today's encounter and assessment, information from prior notes written by myself or my colleagues may have been "brought forward" into today's note. My signature on this note, however, is an attestation that I personally performed the exam, history, and/or decision-making noted today, and, unless otherwise indicated, the interactions with patient, family, and staff as well as the review of records all occurred today. I also attest that the listed assessment and stated plan reflect my best clinical judgment today based on the combination of historical information, prior notes, and today's exam/ interactions. When time spent is documented, it refers only to time spent today by the signer, or if indicated, combined time spent today by collaborating physician/nurse practitioner. Nellie Li MD Aug 22, 2017 11:44
[2017-08-22] MEDS: diphenhydrAMINE HCL 25 MG CAP PO PRN ×2 (12:02→20:36)
[2017-08-22] MEDS: ACETAMINOPHEN 325 MG TAB PO PRN ×2 (12:03→20:35)
[2017-08-22] MEDS: fentaNYL 25 MCG/HR PATCH T-DERMAL SCH (12:04)
[2017-08-22] MEDS: SODIUM CHLORIDE 0.9% FLUSH 10 ML FLUSH IV FLUSH SCH ×2 (12:05→20:36)
[2017-08-22] MEDS: SODIUM CHLOR 0.9% 1000 ML INJ 1,000 ML IV SCH (19:07)
--- NOTE | 2017-08-22 19:46 | RADRPT ---
EXAM DATE/TIME: 08/22/2017 19:18 [facility] COMPARISON: ABDOMEN FLAT & UPRIGHT, August 21, 2017, 21:44. INDICATIONS : History of liver mets, fever, chemo patient. ORAL CONTRAST: No oral contrast ingested. RADIATION DOSE: 9.16 CTDIvol (mGy) MEDICAL HISTORY : Hypertension. liver mets SURGICAL HISTORY : Hysterectomy. ENCOUNTER: Initial ACUITY: 1 day PAIN SCALE: 5/10 LOCATION: abdomen TECHNIQUE: Volumetric scanning of the abdomen and pelvis was performed. Using automated exposure control and adjustment of the mA and/or kV according to patient size, radiation dose was kept as low as reasonably achievable to obtain optimal diagnostic quality images. DICOM format image data is av ailable electronically for review and comparison. FINDINGS: LOWER LUNGS: There is a subcentimeter nodule in both lung bases consistent with metastatic diseas e LIVER: Liver is enlarged with marked inhomogeneity which H. with suggestion of multiple ill-defin ed low-density lesions largest measuring up to 5 cm in size both right and left lobes . Gallbladder i s seen to be homogeneous isodense or more dense than normal fluid with no evidence of defects or ston es or dilated ducts. SPLEEN: Normal size without lesion. PANCREAS: Within normal limits. KIDNEYS: Normal in size and shape. There is no mass or hydronephrosis. There is a 3 or 4 mm ston e in in the upper pole of the left kidney with cortical thinning and retraction indicating prior infl ammatory disease. ADRENAL GLANDS: Within normal limits. VASCULAR: There is no aortic aneurysm. BOWEL/MESENTERY: The stomach, small bowel, and colon demonstrate no acute abnormality. There is no free intraperitoneal air or fluid. ABDOMINAL WALL: Within normal limits. RETROPERITONEUM: There is no lymphadenopathy. BLADDER: No wall thickening or mass. REPRODUCTIVE: Within normal limits. INGUINAL: There is no lymphadenopathy or hernia. MUSCULOSKELETAL: Within normal limits for patient age. Degenerative disc disease L5-S1 with facet arthritic change. CONCLUSION: Hepatomegaly with findings suggesting diffuse inhomogeneity and possible ill-defined low density lesions metastatic disease. Left kidney upper pole 3 mm calyceal stones with cortical thi nning indicating remote inflammatory process. Bilateral basilar lung subcentimeter nodular density consist ent with metastatic disease. Intra-abdominal contents reveal no evidence of free air or f ree fluid or abscess formation Julio César Gomez MD on August 22, 2017 at 19:36 Board Certified Radiologist. This report was verified electronically.
[2017-08-23] VITALS (7 sets, daily range): BP systolic 90–146; BP diastolic 50–77; PULSE 72–93; RESP 16–19; TEMP 98–100.8; O2SAT 98–100
[2017-08-23] MEDS: ENOXAPARIN SODIUM 40 MG/0.4 ML SYRINGE SQ SCH (04:11)
[2017-08-23] MEDS: SODIUM CHLOR 0.9% 1000 ML INJ 1,000 ML IV SCH ×3 (04:11→21:32)
[2017-08-23] MEDS: SODIUM CHLORIDE 0.9% FLUSH 10 ML FLUSH IV FLUSH SCH ×2 (08:13→21:00)
[2017-08-23] MEDS: CEFEPIME INJ 2,000 MG in SODIUM CHLORIDE 0.9% INJ 100 ML IV SCH ×2 (08:13→21:31)
--- NOTE | 2017-08-23 09:09 | HHI.PR ---
Subjective Remarks Follow-up for abdominal pain in a patient with metastatic cancer of unknown primary. Patient is more alert today. Daughter is at bedside. Denies any chest pain, shortness of breath, fever or chills. Last night she ate better. Objective Vitals Vital Signs Date Time Temp Pulse Resp B/P (MAP) Pulse Ox O2 Delivery O2 Flow Rate FiO2 08/23/17 04:00 98.0 81 19 137/76 98 08/23/17 00:40 98.9 83 18 105/63 99 08/23/17 00:24 99.0 89 18 90/58 98 08/22/17 22:00 99.7 08/22/17 20:00 96 08/22/17 20:00 101.7 95 20 154/67 (96) 100 08/22/17 19:12 101.4 08/22/17 16:00 98.9 82 102/59 100 08/22/17 14:33 98.7 86 18 86/44 99 08/22/17 13:04 18 08/22/17 13:04 18 I/O 08/22/17 08/22/17 08/22/17 08/23/17 08/23/17 08/23/17 07:00 15:00 23:00 07:00 15:00 23:00 Intake Total 0 ml 400 ml 250 ml Output Total 200 ml 400 ml Balance -200 ml 0 ml 250 ml Intake Oral 0 ml Packed Cells 400 ml 250 ml Output Urine Total 200 ml 400 ml Result Diagram: 08/22/17 0616 08/22/17 0616 Imaging Last Impressions Abdomen/Pelvis CT 08/22/17 0000 Signed Impressions: Service Date/Time: Tuesday, August 22, 2017 19:18 - CONCLUSION: Hepatomegaly with findings suggesting diffuse inhomogeneity and possible ill-defined low density lesions metastatic disease. Left kidney upper pole 3 mm calyceal stones with cortical thinning indicating remote inflammatory process. Bilateral basilar lung subcentimeter nodular density consistent with metastatic disease. Intra-abdominal contents reveal no evidence of free air or free fluid or abscess formation Julio César Gomez MD Head CT [id number]/21/172128 Signed Impressions: Service Date/Time: Monday, August 21, 2017 21:53 - CONCLUSION: Unremarkable study. KAldair Araujo MD Abdomen X-Ray 08/21/17 0000 Signed Impressions: Service Date/Time: Monday, August 21, 2017 21:44 - CONCLUSION: Nonspecific abdomen. KAldair Araujo MD Objective Remarks GENERAL: Alert, NAD. SKIN: Warm and dry. HEAD: Normocephalic. EYES: No scleral icterus. No injection or drainage. NECK: Supple, trachea midline. No JVD or lymphadenopathy. CARDIOVASCULAR: Regular rate and rhythm without murmurs, gallops, or rubs. RESPIRATORY: Breath sounds equal bilaterally. No accessory muscle use. GASTROINTESTINAL: Abdomen soft, non-tender, nondistended. MUSCULOSKELETAL: No cyanosis, or edema. BACK: Nontender without obvious deformity. No CVA tenderness. 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 She has been through various chemotherapy in 2016 and recently developed progression of disease. She received doxorubicin in the last 1 week. Daughter at bedside states that patient did not tolerate last cycle of doxorubicin well. Patient does not wish to continue chemotherapy. - Metastatic poorly differentiated carcinoma of unknown primary - Metastasis to liver and bone - Oncology following. - We consulted palliative care. Hospice consulted. - Patient is more alert today. Would like to advance diet. We will put her on regular diet with Ensure supplement. - Anemia of chronic disease - Hgb on admission 5.9. Patient received 2 units of PRBCs. We'll check H&H today. - Suspected UTI - Patient was started on Cefepime which we will continue for now. - Will follow C&S and also check CXR today. LISA. Lizzy Smith DO Aug 23, 2017 9:09 am
--- NOTE | 2017-08-23 10:27 | RADRPT ---
EXAM DATE/TIME: 08/23/2017 09:45 [facility] COMPARISON: CT ABDOMEN & PELVIS W/O CONTRAST, August 22, 2017, 19:18. INDICATIONS : Fever. MEDICAL HISTORY : Hypertension. Liver and bone cancer, mets. SURGICAL HISTORY : Hysterectomy. ENCOUNTER: Initial ACUITY: 2 days PAIN SCORE: 0/10 LOCATION: Bilateral chest FINDINGS: Right IJ [id number] with catheter tip in the proximal SVC. Linear opacities at the lung bases chikis lar to prior CT exam. Cardiomediastinal contours are within normal limits. Bony thorax is intact. CONCLUSION: 1. Stable linear bibasilar parenchymal opacities most consistent with atelectasis. Levon Sheehan MD on August 23, 2017 at 10:23 Board Certified Radiologist. This report was verified electronically.
--- NOTE | 2017-08-23 12:08 | PD.ONC.PN ---
Subjective Subjective Remarks Tmax 101.7 overnight. Resting in bed. Patient reports continued abdominal pain. Daughter concerned about her getting pain medicine because "it makes her confused." Objective Data Date Time Temp Pulse Resp B/P (MAP) Pulse Ox O2 Delivery O2 Flow Rate FiO2 08/23/17 08:00 98.7 72 16 120/67 (84) 100 08/23/17 04:00 98.0 81 19 137/76 98 08/23/17 00:40 98.9 83 18 105/63 99 08/23/17 00:24 99.0 89 18 90/58 98 08/22/17 22:00 99.7 08/22/17 20:00 96 08/22/17 20:00 101.7 95 20 154/67 (96) 100 08/22/17 19:12 101.4 08/22/17 16:00 98.9 82 102/59 100 08/22/17 14:33 98.7 86 18 86/44 99 08/22/17 13:04 18 08/22/17 13:04 18 08/23/17 08/23/17 08/23/17 07:00 15:00 23:00 Intake Total 250 ml Balance 250 ml Result Diagram: 08/22/17 0616 08/22/17 0616 Culture Results Microbiology Date/Time Source Procedure Growth Status 08/21/17 20:30 Blood Peripheral Aerobic Blood Culture - Preliminary NO GROWTH IN 2 DAYS Resulted 08/21/17 20:30 Blood Peripheral Anaerobic Blood Culture - Preliminary NO GROWTH IN 2 DAYS Resulted 08/21/17 20:15 Blood Peripheral Aerobic Blood Culture - Preliminary NO GROWTH IN 2 DAYS Resulted 08/21/17 20:15 Blood Peripheral Anaerobic Blood Culture - Preliminary NO GROWTH IN 2 DAYS Resulted 08/22/17 00:01 Urine Random Urine Urine Culture Pending Received Imaging Studies Last Impressions Chest X-Ray 08/23/17 0000 Signed Impressions: Service Date/Time: August 09:45 - CONCLUSION: 1. Stable linear bibasilar parenchymal opacities most consistent with atelectasis. Levon Sheehan MD Abdomen/Pelvis CT 08/22/17 0000 Signed Impressions: Service Date/Time: Tuesday, August 22, 2017 19:18 - CONCLUSION: Hepatomegaly with findings suggesting diffuse inhomogeneity and possible ill-defined low density lesions metastatic disease. Left kidney upper pole 3 mm calyceal stones with cortical thinning indicating remote inflammatory process. Bilateral basilar lung subcentimeter nodular density consistent with metastatic disease. Intra-abdominal contents reveal no evidence of free air or free fluid or abscess formation Julio César Gomez MD Head CT 08/21/172128 Signed Impressions: Service Date/Time: Monday, August 21, 2017 21:53 - CONCLUSION: Unremarkable study. Irasema Araujo MD Abdomen X-Ray 08/21/17 0000 Signed Impressions: Service Date/Time: Monday, August 21, 2017 21:44 - CONCLUSION: Nonspecific abdomen. Irasema Araujo MD Administered Medications Medications (Trade) Dose Ordered Sig/Amanda Route PRN Reason Start Time Stop Time Status Last Admin Dose Admin Sodium Chloride (NS Flush) 2 ml BID IV FLUSH 08/22/17 09:00 08/23/17 08:13 Cefepime HCl 2000 mg/Sodium Chloride 100 ml @ 200 mls/hr Q12H IV 08/22/17 08:00 08/23/17 08:13 Hydromorphone HCl (Dilaudid Pf Inj) 0.5 mg Q2H PRN IV PUSH BREAKTHROUGH PAIN 08/22/17 03:30 08/22/17 08:10 Enoxaparin Sodium (Lovenox Inj) 40 mg Q24H SQ 08/22/17 03:30 08/23/17 04:11 Oxycodone HCl (Roxicodone) 30 mg Q8H PRN PO PAIN SCALE 5 TO 10 08/22/17 10:30 08/22/17 22:52 Fentanyl (Duragesic 25 Mcg Patch.72 Hr) 1 patch Q3D T-DERMAL 08/22/17 11:00 08/22/17 12:04 Sodium Chloride 1,000 ml @ 100 mls/hr Q10H IV 08/22/17 15:00 08/23/17 11:00 Objective Remarks GENERAL: Pleasant middle aged female sitting up in bed. SKIN: Warm and dry. HEAD: Normocephalic. EYES: No injection or drainage. NECK: Supple, trachea midline. CARDIOVASCULAR: Regular rate and rhythm RESPIRATORY: anterior saavedra clear. GASTROINTESTINAL: Abdomen distended, tender to palpation. EXTREMITIES: No cyanosis NEUROLOGICAL: awake and alert, normal speech. Assessment/Plan Problem List: (1) Abdominal pain, generalized ICD Codes: R10.84 - Generalized abdominal pain Plan: --currently on Fentanyl TD 25mcg + Roxicodone 30mg PO q 8-->only used her Roxicodone once yesterday. --has a increased abdominal pain likely due to metastatic disease. CT ab/ pelvis on 08/22 showed hepatomegaly with findings suggesting diffuse inhomogeneity and possible ill-defined low density lesions. + Bilateral basilar lung subcentimeter nodular density consistent with metastatic disease. (2) Metastatic carcinoma involving liver with unknown primary site ICD Codes: C78.7 - Secondary malignant neoplasm of liver and intrahepatic bile duct; C80.1 - Malignant (primary) neoplasm, unspecified Plan: --Metastatic poorly differentiated carcinoma, unknown primary. --has metastatic disease in the liver and bone. --first diagnosed in December of 2015. --Workup did not showed the primary tumor. --had been treated with various chemotherapy. --recently finished a course of topotecan but developed progression disease. --just started first cycle of doxorubicin last week. too early to assess response at this time. (3) fever, possible sepsis, possible UTI Plan: --came in with a temperature of 101.7. --Urinalysis showed possible urinary tract infection. --BC no growth --UC pending --on Cefepime. (4) Anemia due to antineoplastic chemotherapy ICD Codes: D64.81 - Anemia due to antineoplastic chemotherapy; T45.1X5A - Adverse effect of antineoplastic and immunosuppressive drugs, initial encounter Plan: --due to anemia of chronic disease as well as recent chemotherapy. --s/p pRBC transfusion during this hospitalization --monitor and transfuse as needed (5) thrombocytopenia due to chemotherapy Plan: --due to recent chemotherapy as well as underlying liver disease. --Continue to monitor. --no evidence of bleeding at this time. Assessment 56y/o female with metastatic carcinoma of unknown primary, admitted with mental status change and febrile illness. 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 Hepatitis C-->treated with interferon in the past Anxiety. Osteoarthritis. Hypertension. Complete hysterectomy. Back surgery twice. Port placement. Plan 1. check CBC, CMP today 2. continue antibiotics 3. continue pain regimen 4. hold DVT prophylaxis with Lovenox while platelets are less than 50K. 5. start Neupogen Attending Statement The exam, history, and the medical decision-making described in the above note were completed with the assistance of the mid-level provider. I reviewed and agree with the findings presented. I attest that I had a [id number] encounter with the patient on the same day, and personally performed and documented my assessment and findings in the medical record. Still has mild confusion but better. Still febrile, culture negative to date. Continue abx. Hgb trended up with transfusion. WBC/platelets trended down due to chemotherapy. Will start neupogen. Monitor CBC and transfuse prn. Discussed hospice care with pt and daughter again this morning. They are not very sure if pt wants hospice care at this time but agree to talk to hospice for information. Continue supportive care for now. Ashlee Wilhelm Aug 23, 2017 12:08 Franky Camarena MD Aug 23, 2017 17:40
[2017-08-23 14:05] LABS: HEMATOCRIT 24.6 % (35.0-46.0)
[2017-08-23 14:10] LABS: REVIEW FLAG FINAL
[2017-08-23 14:21] LABS: AUTOMATED NEUTROPHIL # 3.2 TH/MM3 (1.8-7.7); BASOPHIL % 0.8 % (0.0-2.0); EOSINOPHIL # 0.1 TH/MM3 (0-0.4); EOSINOPHIL % 1.4 % (0.0-4.0); HEMATOCRIT 24.6 % (35.0-46.0); LYMPHOCYTE # 0.6 TH/MM3 (1.0-4.8); MEAN CELL VOLUME 91.9 FL (80.0-100.0); MEAN CORPUSCULAR HGB CONC 32.6 % (32.0-36.0); MONO % 0.6 % (0.0-8.0); NEUT % 82.2 % (16.0-70.0); RED BLOOD COUNT 2.68 MIL/MM3 (4.00-5.30); WHITE BLOOD COUNT 3.9 TH/MM3 (4.0-11.0)
[2017-08-23 14:22] LABS: HEMO FLAGS AUTO DIFF
[2017-08-23 14:25] LABS: PLATELET COUNT 20 TH/MM3 (150-450)
[2017-08-23 14:34] LABS: AST (GOT) 36 U/L (15-37); BLOOD UREA NITROGEN 10 MG/DL (7-18); CHLORIDE 108 MEQ/L (98-107); GLOMERULAR FILTRATION RATE 96 ML/MIN (>89); POTASSIUM 3.6 MEQ/L (3.5-5.1); SODIUM (NA) 139 MEQ/L (136-145)
[2017-08-23 14:58] LABS: SCAN/DIFF AUTO DIFF CONFIRMED
[2017-08-23 14:59] LABS: PLATELET ESTIMATE SMEAR RARE (NORMAL); PLATELET MORPHOLOGY NORMAL (NORMAL)
[2017-08-23 15:00] LABS: TEARDROP RBCS 1+ (NORMAL)
[2017-08-23 15:01] LABS: TOXIC GRANULATION 1+ (NORMAL)
[2017-08-23 15:03] LABS: ALKALINE PHOSPHATASE 111 U/L (45-117); ALT (GPT) 7 U/L (10-53); ANION GAP 11 MEQ/L (5-15); BICARBONATE 20.4 MEQ/L (21.0-32.0); TOTAL BILIRUBIN ADULT 1.8 MG/DL (0.2-1.0)
[2017-08-23] MEDS ORDERED: FILGRASTIM INJ 480 MCG in DEXTROSE 5% IN WATER INJ 48.4 ML IV ONE ×2 (20:00)
[2017-08-24] VITALS (14 sets, daily range): BP systolic 90–132; BP diastolic 46–67; PULSE 69–92; RESP 16–20; TEMP 98.6–101.7; O2SAT 98–100
[2017-08-24] MEDS: SODIUM CHLOR 0.9% 1000 ML INJ 1,000 ML IV SCH ×2 (05:11→19:59)
[2017-08-24 05:47] LABS: AUTOMATED NEUTROPHIL # 1.7 TH/MM3 (1.8-7.7); BASOPHIL % 1.4 % (0.0-2.0); EOSINOPHIL % 1.2 % (0.0-4.0); LYMPH % 20.4 % (9.0-44.0); LYMPHOCYTE # 0.4 TH/MM3 (1.0-4.8); MEAN CELL VOLUME 91.9 FL (80.0-100.0); MEAN CORPUSCULAR HEMOGLOBIN 30.4 PG (27.0-34.0); MEAN CORPUSCULAR HGB CONC 33.1 % (32.0-36.0); MONO % 0.8 % (0.0-8.0); NEUT % 76.2 % (16.0-70.0); RED BLOOD COUNT 1.79 MIL/MM3 (4.00-5.30); WHITE BLOOD COUNT 2.2 TH/MM3 (4.0-11.0)
[2017-08-24 05:48] LABS: HEMO FLAGS AUTO DIFF
[2017-08-24 05:52] LABS: HEMATOCRIT 16.4 % (35.0-46.0); PLATELET COUNT 10 TH/MM3 (150-450)
[2017-08-24 06:03] LABS: ALT (GPT) 6 U/L (10-53); ANION GAP 8 MEQ/L (5-15); AST (GOT) 32 U/L (15-37); BICARBONATE 20.6 MEQ/L (21.0-32.0); BLOOD UREA NITROGEN 11 MG/DL (7-18); CHLORIDE 111 MEQ/L (98-107); GLOMERULAR FILTRATION RATE 104 ML/MIN (>89); POTASSIUM 3.9 MEQ/L (3.5-5.1); SODIUM (NA) 140 MEQ/L (136-145)
[2017-08-24 06:06] LABS: ALKALINE PHOSPHATASE 101 U/L (45-117); TOTAL BILIRUBIN ADULT 1.4 MG/DL (0.2-1.0)
[2017-08-24] MEDS ORDERED: SODIUM CHLOR 0.9% 250 ML INJ 250 ML IV ONE (08:00)
[2017-08-24] MEDS ORDERED: diphenhydrAMINE HCL 25 MG CAP PO PRN (08:15)
[2017-08-24] MEDS ORDERED: ACETAMINOPHEN 325 MG TAB PO PRN (08:15)
[2017-08-24] MEDS: CEFEPIME INJ 2,000 MG in SODIUM CHLORIDE 0.9% INJ 100 ML IV SCH ×2 (08:24→19:59)
[2017-08-24 08:41] LABS: PLATELET ESTIMATE SMEAR RARE (NORMAL); PLATELET MORPHOLOGY NORMAL (NORMAL); SCAN/DIFF AUTO DIFF CONFIRMED
--- NOTE | 2017-08-24 09:54 | PD.ONC.PN ---
Subjective Subjective Remarks T-max 100F overnight. Resting in room in nad. Reports pain is about a four at present. Location: Abdomen. Eating breakfast. Objective Data Date Time Temp Pulse Resp B/P (MAP) Pulse Ox O2 Delivery O2 Flow Rate FiO2 08/24/17 08:36 99.7 89 18 119/58 (78) 08/24/17 04:00 98.8 86 18 103/65 (78) 98 08/24/17 00:00 99.6 84 18 104/67 (79) 99 08/23/17 20:00 80 08/23/17 20:00 100.0 83 18 100/50 (67) 98 08/23/17 16:00 99.0 93 16 134/68 (90) 99 08/23/17 13:58 18 08/23/17 12:37 100.8 91 16 146/77 (100) 98 08/24/17 08/24/17 08/24/17 07:00 15:00 23:00 Intake Total 2943 ml Output Total 1 ml Balance 2942 ml Result Diagram: 08/24/1718 08/24/1718 Laboratory Results Laboratory Tests Test 08/23/17 13:40 08/24/17 05:18 White Blood Count 3.9 TH/MM3 2.2 TH/MM3 Red Blood Count 2.68 MIL/MM3 1.79 MIL/MM3 Hemoglobin 8.0 GM/DL 5.4 GM/DL Hematocrit 24.6 % 16.4 % Mean Corpuscular Volume 91.9 FL 91.9 FL Mean Corpuscular Hemoglobin 30.0 PG 30.4 PG Mean Corpuscular Hemoglobin Concent 32.6 % 33.1 % Red Cell Distribution Width 20.0 % 19.0 % Platelet Count 20 TH/MM3 10 TH/MM3 Mean Platelet Volume 8.5 FL 8.5 FL Neutrophils (%) (Auto) 82.2 % 76.2 % Lymphocytes (%) (Auto) 15.0 % 20.4 % Monocytes (%) (Auto) 0.6 % 0.8 % Eosinophils (%) (Auto) 1.4 % 1.2 % Basophils (%) (Auto) 0.8 % 1.4 % Neutrophils # (Auto) 3.2 TH/MM3 1.7 TH/MM3 Lymphocytes # (Auto) 0.6 TH/MM3 0.4 TH/MM3 Monocytes # (Auto) 0.0 TH/MM3 0.0 TH/MM3 Eosinophils # (Auto) 0.1 TH/MM3 0.0 TH/MM3 Basophils # (Auto) 0.0 TH/MM3 0.0 TH/MM3 CBC Comment AUTO DIFF AUTO DIFF Differential Comment AUTO DIFF CONFIRMED AUTO DIFF CONFIRMED Toxic Granulation 1+ Platelet Estimate RARE RARE Platelet Morphology Comment NORMAL NORMAL Tear Drop Cells 1+ Blood Urea Nitrogen 10 MG/DL 11 MG/DL Creatinine 0.75 MG/DL 0.70 MG/DL Random Glucose 89 MG/DL 83 MG/DL Total Protein 7.5 GM/DL 6.6 GM/DL Albumin 1.8 GM/DL 1.6 GM/DL Calcium Level 8.2 MG/DL 7.6 MG/DL Alkaline Phosphatase 111 U/L 101 U/L Aspartate Amino Transf (AST/SGOT) 36 U/L 32 U/L Alanine Aminotransferase (ALT/SGPT) 7 U/L 6 U/L Total Bilirubin 1.8 MG/DL 1.4 MG/DL Sodium Level 139 MEQ/L 140 MEQ/L Potassium Level 3.6 MEQ/L 3.9 MEQ/L Chloride Level 108 MEQ/L 111 MEQ/L Carbon Dioxide Level 20.4 MEQ/L 20.6 MEQ/L Anion Gap 11 MEQ/L 8 MEQ/L Estimat Glomerular Filtration Rate 96 ML/MIN 104 ML/MIN Culture Results Microbiology Date/Time Source Procedure Growth Status 08/21/17 20:30 Blood Peripheral Aerobic Blood Culture - Preliminary NO GROWTH IN 2 DAYS Resulted 08/21/17 20:30 Blood Peripheral Anaerobic Blood Culture - Preliminary NO GROWTH IN 2 DAYS Resulted 08/21/17 20:15 Blood Peripheral Aerobic Blood Culture - Preliminary NO GROWTH IN 2 DAYS Resulted 08/21/17 20:15 Blood Peripheral Anaerobic Blood Culture - Preliminary NO GROWTH IN 2 DAYS Resulted 08/22/17 00:01 Urine Random Urine Urine Culture - Final NO GROWTH Complete Administered Medications Medications (Trade) Dose Ordered Sig/Amanda Route PRN Reason Start Time Stop Time Status Last Admin Dose Admin Sodium Chloride (NS Flush) 2 ml BID IV FLUSH 08/22/17 09:00 08/23/17 08:13 Cefepime HCl 2000 mg/Sodium Chloride 100 ml @ 200 mls/hr Q12H IV 08/22/17 08:00 08/24/17 08:24 Hydromorphone HCl (Dilaudid Pf Inj) 0.5 mg Q2H PRN IV PUSH BREAKTHROUGH PAIN 08/22/17 03:30 08/22/17 08:10 Enoxaparin Sodium (Lovenox Inj) 40 mg Q24H SQ 08/22/17 03:30 Future Hold 08/23/17 04:11 Oxycodone HCl (Roxicodone) 30 mg Q8H PRN PO PAIN SCALE 5 TO 10 08/22/17 10:30 08/23/17 21:40 Fentanyl (Duragesic 25 Mcg Patch.72 Hr) 1 patch Q3D T-DERMAL 08/22/17 11:00 08/22/17 12:04 Sodium Chloride 1,000 ml @ 100 mls/hr Q10H IV 08/22/17 15:00 08/24/17 05:11 Acetaminophen (Tylenol) 650 mg Q4H PRN PO SEE LABEL COMMENTS 08/24/17 08:15 08/24/17 08:25 Diphenhydramine HCl (Benadryl) 25 mg Q4H PRN PO SEE LABEL COMMENTS 08/24/17 08:15 08/24/17 08:24 Objective Remarks GENERAL: Middle aged, chronically ill female sitting up on side of bed, eating breakfast. SKIN: Warm and dry. HEAD: Normocephalic. EYES: No injection or drainage. NECK: Supple, trachea midline. CARDIOVASCULAR: Regular rate and rhythm RESPIRATORY: Breath sounds equal bilaterally. No accessory muscle use. GASTROINTESTINAL: Abdomen soft, non-tender, nondistended. EXTREMITIES: No cyanosis NEUROLOGICAL: awake and alert, normal speech. Assessment/Plan Problem List: (1) Abdominal pain, generalized ICD Codes: R10.84 - Generalized abdominal pain Plan: --currently on Fentanyl TD 25mcg + Roxicodone 30mg PO q 8 --has a increased abdominal pain likely due to metastatic disease. CT ab/ pelvis on 08/22 showed hepatomegaly with findings suggesting diffuse inhomogeneity and possible ill-defined low density lesions. + Bilateral basilar lung subcentimeter nodular density consistent with metastatic disease. (2) Metastatic carcinoma involving liver with unknown primary site ICD Codes: C78.7 - Secondary malignant neoplasm of liver and intrahepatic bile duct; C80.1 - Malignant (primary) neoplasm, unspecified Plan: --Metastatic poorly differentiated carcinoma, unknown primary. --has metastatic disease in the liver and bone. --first diagnosed in December of 2015. --Workup did not showed the primary tumor. --had been treated with various chemotherapy. --recently finished a course of topotecan but developed progression disease. --just started first cycle of doxorubicin last week. too early to assess response at this time. (3) fever, possible sepsis, possible UTI Plan: --came in with a temperature of 101.7. --Urinalysis showed possible urinary tract infection. --BC no growth --UC no growth --on Cefepime. (4) Pancytopenia due to antineoplastic chemotherapy ICD Codes: D61.810 - Antineoplastic chemotherapy induced pancytopenia; T45.1X5A - Adverse effect of antineoplastic and immunosuppressive drugs, initial encounter Plan: --started on Neupogen on 08/23. --transfuse pRBC and platelets as needed to keep hgb>7.5, platelets>10K Assessment 56y/o female with metastatic carcinoma of unknown primary, admitted with mental status change and febrile illness. 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 Hepatitis C-->treated with interferon in the past Anxiety. Osteoarthritis. Hypertension. Complete hysterectomy. Back surgery twice. Port placement. Plan 1. continue antibiotics. 2. give 2 units pRBC, 1 unit platelets 3. continue Neupogen 4. continue pain management with Fentanyl patch and Roxicodone for breakthrough pain. Attending Statement The exam, history, and the medical decision-making described in the above note were completed with the assistance of the mid-level provider. I reviewed and agree with the findings presented. I attest that I had a [id number] encounter with the patient on the same day, and personally performed and documented my assessment and findings in the medical record. Feeling better. Abdominal pain better controlled. Still febrile. Blood counts trended lower due to chemotherapy. Continue transfusion support. Continue abx. Discussed with pt and her daughter, they have talked to hospice and may consider hospice after she goes home but not at this time. Ashlee Wilhelm Aug 24, 2017 09:54 Franky Camarena MD Aug 24, 2017 16:28
--- NOTE | 2017-08-24 13:12 | HHI.PR ---
Subjective Remarks Follow-up for abdominal pain in a patient with metastatic cancer of unknown primary. Patient feels that she is somewhat better today. No acute concerns. She would like to get Ensure with each meal. Objective Vitals Vital Signs Date Time Temp Pulse Resp B/P (MAP) Pulse Ox O2 Delivery O2 Flow Rate FiO2 08/24/17 12:00 82 08/24/17 10:30 98.6 77 18 98/50 100 08/24/17 10:13 98.9 74 20 90/48 100 08/24/17 08:36 99.7 89 18 119/58 (78) 08/24/17 04:00 98.8 86 18 103/65 (78) 98 08/24/17 00:00 99.6 84 18 104/67 (79) 99 08/23/17 20:00 80 08/23/17 20:00 100.0 83 18 100/50 (67) 98 08/23/17 16:00 99.0 93 16 134/68 (90) 99 08/23/17 13:58 18 I/O 08/23/17 08/23/17 08/23/17 08/24/17 08/24/17 08/24/17 07:00 15:00 23:00 07:00 15:00 23:00 Intake Total 250 ml 50 ml 2943 ml Output Total 1 ml Balance 250 ml 50 ml 2942 ml Intake Oral 480 ml IV Total 50 ml 2463 ml Packed Cells 250 ml Output Urine Total 1 ml Result Diagram: 08/24/1751708/24/1718 Objective Remarks GENERAL: Alert, NAD. SKIN: Warm and dry. HEAD: Normocephalic. EYES: No scleral icterus. No injection or drainage. NECK: Supple, trachea midline. No JVD or lymphadenopathy. CARDIOVASCULAR: Regular rate and rhythm without murmurs, gallops, or rubs. RESPIRATORY: Breath sounds equal bilaterally. No accessory muscle use. GASTROINTESTINAL: Abdomen soft, non-tender, nondistended. MUSCULOSKELETAL: No cyanosis, or edema. BACK: Nontender without obvious deformity. No CVA tenderness. 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 She has been through various chemotherapy in 2016 and recently developed progression of disease. She received doxorubicin in the last 1 week. Daughter at bedside states that patient did not tolerate last cycle of doxorubicin well. Patient does not wish to continue chemotherapy. - Metastatic poorly differentiated carcinoma of unknown primary - Metastasis to liver and bone - Oncology following. - Palliative care following. - Hemoglobin dropped again and currently receiving 2 units of PRBCs. - Anemia of chronic disease - Hgb on admission 5.9, received two units. Dropped again to 5.4 and receiving 2 additional units today. - Thrombocytopenia - PLT 10K. Will monitor. If drops below 10, we will consider platelet transfusion. - Suspected UTI - Patient was started on Cefepime which we will continue for now. - Urine cx shows no growth. - If okay with oncology, we can try to discontinue all abx and observe patient. - Although neutrophil count is dropping, her temp has been 99.1. DNR. SCDs. Lovenox on hold due to thrombocytopenia. Lizzy Troncoso DO Aug 24, 2017 13:12
--- NOTE | 2017-08-24 13:37 | HHI.HCPN ---
Reason for visit a. To assist with evaluation and management of symptoms including: Pain, confusion b. To assist medical decision maker(s) with: better understanding of current medical conditions; weighing benefits/burdens of medical treatment options; making medical treatment decisions. . Subjective/Interval History INTERVAL NOTE: The patient says her pain is a little better, and both the patient and her daughter Margo note that her confusion has cleared. She is now pancytopenic, with white count 2.2, hemoglobin 5.4, platelets 10, 000. She is having a red cell transfusion at this time. We had considerable discussion again about her goals and wishes, see below. . Family/friend interactions Daughter at the bedside. The daughter and patient agree that she will want to engage hospice services at her time of discharge from the hospital. Her discharge date is unknown at this time. . Advance Directives Living Will: Copy in medical record Health Care Surrogate: Copy in medical record Advance Directive Specifics Date completed: March 2017 Health Care Surrogate(s): Daughter Margo Jones . Documented care wishes: The patient has a living will with typical language . Significant change in goals: They will want to engage hospice services at the time of discharge. . Objective Vital Signs Date Time Temp Pulse Resp B/P (MAP) Pulse Ox O2 Delivery O2 Flow Rate FiO2 08/24/17 12:00 82 08/24/17 10:30 98.6 77 18 98/50 100 08/24/17 10:13 98.9 74 20 90/48 100 08/24/17 08:36 99.7 89 18 119/58 (78) 08/24/17 04:00 98.8 86 18 103/65 (78) 98 08/24/17 00:00 99.6 84 18 104/67 (79) 99 08/23/17 20:00 80 08/23/17 20:00 100.0 83 18 100/50 (67) 98 08/23/17 16:00 99.0 93 16 134/68 (90) 99 08/23/17 13:58 18 Intake & Output 08/24/17 08/24/17 07:00 19:00 Intake Total 2993 ml Output Total 1 ml Balance 2992 ml Intake Oral 480 ml IV Total 2513 ml Output Urine Total 1 ml Physical Exam CONSTITUTIONAL/GENERAL: This is a moderately weak, fatigued patient, in no apparent distress. NECK: Trachea midline. Supple, nontender. No palpable thyroid enlargement or nodularity. CARDIOVASCULAR: Regular rate and rhythm without murmurs, gallops, or rubs. No JVD. Peripheral pulses symmetric. RESPIRATORY/CHEST: Symmetric, unlabored respirations. Clear to auscultation. Breath sounds equal bilaterally. No wheezes, rales, or rhonchi. GASTROINTESTINAL: Abdomen soft, non-tender, nondistended. No hepato-splenomegaly , or palpable masses. No guarding. Bowel sounds present. MUSCULOSKELETAL: Extremities without clubbing, cyanosis, or edema. No joint tenderness or effusion noted. No calf tenderness. No mottling or clubbing. NEUROLOGICAL: Awake and alert. Some weakness. Follows commands. Cognitively sharp. Moves all extremities. PSYCHIATRIC: No obvious anxiety/depression. no apparent hallucinations or other psychotic thought process. Alert and oriented 3. . Diagnostic Tests Laboratory Laboratory Tests Test 08/21/17 20:29 08/21/17 23:32 08/22/17 00:01 08/22/17 06:16 White Blood Count 11.0 TH/MM3 (4.0-11.0) 7.2 TH/MM3 (4.0-11.0) Red Blood Count 2.47 MIL/MM3 (4.00-5.30) 1.93 MIL/MM3 (4.00-5.30) Hemoglobin 7.3 GM/DL (11.6-15.3) 5.9 GM/DL (11.6-15.3) Hematocrit 23.0 % (35.0-46.0) 17.9 % (35.0-46.0) Mean Corpuscular Volume 93.3 FL (80.0-100.0) 93.1 FL (80.0-100.0) Mean Corpuscular Hemoglobin 29.8 PG (27.0-34.0) 30.6 PG (27.0-34.0) Mean Corpuscular Hemoglobin Concent 31.9 % (32.0-36.0) 32.9 % (32.0-36.0) Red Cell Distribution Width 20.6 % (11.6-17.2) 20.4 % (11.6-17.2) Platelet Count 66 TH/MM3 (150-450) 38 TH/MM3 (150-450) Mean Platelet Volume 8.7 FL (7.0-11.0) 7.7 FL (7.0-11.0) Neutrophils (%) (Auto) 89.9 % (16.0-70.0) 87.7 % (16.0-70.0) Lymphocytes (%) (Auto) 8.3 % (9.0-44.0) 10.5 % (9.0-44.0) Monocytes (%) (Auto) 0.6 % (0.0-8.0) 0.7 % (0.0-8.0) Eosinophils (%) (Auto) 0.8 % (0.0-4.0) 0.5 % (0.0-4.0) Basophils (%) (Auto) 0.4 % (0.0-2.0) 0.6 % (0.0-2.0) Neutrophils # (Auto) 9.9 TH/MM3 (1.8-7.7) 6.3 TH/MM3 (1.8-7.7) Lymphocytes # (Auto) 0.9 TH/MM3 (1.0-4.8) 0.8 TH/MM3 (1.0-4.8) Monocytes # (Auto) 0.1 TH/MM3 (0-0.9) 0.1 TH/MM3 (0-0.9) Eosinophils # (Auto) 0.1 TH/MM3 (0-0.4) 0.0 TH/MM3 (0-0.4) Basophils # (Auto) 0.0 TH/MM3 (0-0.2) 0.0 TH/MM3 (0-0.2) CBC Comment AUTO DIFF AUTO DIFF Differential Comment AUTO DIFF CONFIRMED AUTO DIFF CONFIRMED Platelet Estimate LOW (NORMAL) LOW (NORMAL) Platelet Morphology Comment NORMAL (NORMAL) NORMAL (NORMAL) Tear Drop Cells 1+ (NORMAL) Ovalocytes 1+ (NORMAL) Blood Urea Nitrogen 9 MG/DL (7-18) 8 MG/DL (7-18) Creatinine 0.80 MG/DL (0.50-1.00) 0.65 MG/DL (0.50-1.00) Random Glucose 122 MG/DL (74-106) 89 MG/DL (74-106) Total Protein 8.0 GM/DL (6.4-8.2) Albumin 2.0 GM/DL (3.4-5.0) Calcium Level 9.0 MG/DL (8.5-10.1) 8.2 MG/DL (8.5-10.1) Alkaline Phosphatase 141 U/L (45-117) Aspartate Amino Transf (AST/SGOT) 46 U/L (15-37) Alanine Aminotransferase (ALT/SGPT) 7 U/L (10-53) Total Bilirubin 1.4 MG/DL (0.2-1.0) Sodium Level 136 MEQ/L (136-145) 139 MEQ/L (136-145) Potassium Level 4.4 MEQ/L (3.5-5.1) 4.1 MEQ/L (3.5-5.1) Chloride Level 106 MEQ/L (98-107) 109 MEQ/L (98-107) Carbon Dioxide Level 23.8 MEQ/L (21.0-32.0) 25.3 MEQ/L (21.0-32.0) Anion Gap 6 MEQ/L (5-15) 5 MEQ/L (5-15) Estimat Glomerular Filtration Rate 89 ML/MIN (>89) 113 ML/MIN (>89) Lactic Acid Level 2.3 mmol/L (0.4-2.0) 2.6 mmol/L (0.4-2.0) 1.0 mmol/L (0.4-2.0) Urine Color YELLOW (YELLW/STRAW) Urine Turbidity HAZY (CLEAR) Urine pH 6.0 (5.0-8.5) Urine Specific [place] 1.019 (1.002-1.035) Urine Protein 30 mg/dL (NEG-TRACE) Urine Glucose (UA) NEG mg/dL (NEG) Urine Ketones NEG mg/dL (NEG) Urine Occult Blood SMALL (NEG) Urine Nitrite NEG (NEG) Urine Bilirubin NEG (NEG) Urine Urobilinogen 2.0 MG/DL (LESS THAN Urine Leukocyte Esterase LARGE (NEG) Urine RBC 50 /hpf (0-3) Urine WBC /hpf (0-5) Urine WBC Clumps FEW (NONE) Urine Squamous Epithelial Cells 1 /hpf (0-5) Urine Bacteria FEW /hpf (NONE) Urine Mucus FEW /lpf (OCC) Microscopic Urinalysis Comment CULTURE INDICATED Test 08/23/17 13:40 08/24/17 05:18 White Blood Count 3.9 TH/MM3 (4.0-11.0) 2.2 TH/MM3 (4.0-11.0) Red Blood Count 2.68 MIL/MM3 (4.00-5.30) 1.79 MIL/MM3 (4.00-5.30) Hemoglobin 8.0 GM/DL (11.6-15.3) 5.4 GM/DL (11.6-15.3) Hematocrit 24.6 % (35.0-46.0) 16.4 % (35.0-46.0) Mean Corpuscular Volume 91.9 FL (80.0-100.0) 91.9 FL (80.0-100.0) Mean Corpuscular Hemoglobin 30.0 PG (27.0-34.0) 30.4 PG (27.0-34.0) Mean Corpuscular Hemoglobin Concent 32.6 % (32.0-36.0) 33.1 % (32.0-36.0) Red Cell Distribution Width 20.0 % (11.6-17.2) 19.0 % (11.6-17.2) Platelet Count 20 TH/MM3 (150-450) 10 TH/MM3 (150-450) Mean Platelet Volume 8.5 FL (7.0-11.0) 8.5 FL (7.0-11.0) Neutrophils (%) (Auto) 82.2 % (16.0-70.0) 76.2 % (16.0-70.0) Lymphocytes (%) (Auto) 15.0 % (9.0-44.0) 20.4 % (9.0-44.0) Monocytes (%) (Auto) 0.6 % (0.0-8.0) 0.8 % (0.0-8.0) Eosinophils (%) (Auto) 1.4 % (0.0-4.0) 1.2 % (0.0-4.0) Basophils (%) (Auto) 0.8 % (0.0-2.0) 1.4 % (0.0-2.0) Neutrophils # (Auto) 3.2 TH/MM3 (1.8-7.7) 1.7 TH/MM3 (1.8-7.7) Lymphocytes # (Auto) 0.6 TH/MM3 (1.0-4.8) 0.4 TH/MM3 (1.0-4.8) Monocytes # (Auto) 0.0 TH/MM3 (0-0.9) 0.0 TH/MM3 (0-0.9) Eosinophils # (Auto) 0.1 TH/MM3 (0-0.4) 0.0 TH/MM3 (0-0.4) Basophils # (Auto) 0.0 TH/MM3 (0-0.2) 0.0 TH/MM3 (0-0.2) CBC Comment AUTO DIFF AUTO DIFF Differential Comment AUTO DIFF CONFIRMED AUTO DIFF CONFIRMED Toxic Granulation 1+ (NORMAL) Platelet Estimate RARE (NORMAL) RARE (NORMAL) Platelet Morphology Comment NORMAL (NORMAL) NORMAL (NORMAL) Tear Drop Cells 1+ (NORMAL) Blood Urea Nitrogen 10 MG/DL (7-18) 11 MG/DL (7-18) Creatinine 0.75 MG/DL (0.50-1.00) 0.70 MG/DL (0.50-1.00) Random Glucose 89 MG/DL (74-106) 83 MG/DL (74-106) Total Protein 7.5 GM/DL (6.4-8.2) 6.6 GM/DL (6.4-8.2) Albumin 1.8 GM/DL (3.4-5.0) 1.6 GM/DL (3.4-5.0) Calcium Level 8.2 MG/DL (8.5-10.1) 7.6 MG/DL (8.5-10.1) Alkaline Phosphatase 111 U/L (45-117) 101 U/L (45-117) Aspartate Amino Transf (AST/SGOT) 36 U/L (15-37) 32 U/L (15-37) Alanine Aminotransferase (ALT/SGPT) 7 U/L (10-53) 6 U/L (10-53) Total Bilirubin 1.8 MG/DL (0.2-1.0) 1.4 MG/DL (0.2-1.0) Sodium Level 139 MEQ/L (136-145) 140 MEQ/L (136-145) Potassium Level 3.6 MEQ/L (3.5-5.1) 3.9 MEQ/L (3.5-5.1) Chloride Level 108 MEQ/L (98-107) 111 MEQ/L (98-107) Carbon Dioxide Level 20.4 MEQ/L (21.0-32.0) 20.6 MEQ/L (21.0-32.0) Anion Gap 11 MEQ/L (5-15) 8 MEQ/L (5-15) Estimat Glomerular Filtration Rate 96 ML/MIN (>89) 104 ML/MIN (>89) Result Diagram: 08/24/1718 08/24/1718 Microbiology Microbiology Date/Time Source Procedure Growth Status 08/21/17 20:30 Blood Peripheral Aerobic Blood Culture - Preliminary NO GROWTH IN 3 DAYS Resulted 08/21/17 20:30 Blood Peripheral Anaerobic Blood Culture - Preliminary NO GROWTH IN 3 DAYS Resulted 08/21/17 20:15 Blood Peripheral Aerobic Blood Culture - Preliminary NO GROWTH IN 3 DAYS Resulted 08/21/17 20:15 Blood Peripheral Anaerobic Blood Culture - Preliminary NO GROWTH IN 3 DAYS Resulted 08/22/17 00:01 Urine Random Urine Urine Culture - Final NO GROWTH Complete Imaging Last Impressions Chest X-Ray 08/23/17 0000 Signed Impressions: Service Date/Time: August 09:45 - CONCLUSION: 1. Stable linear bibasilar parenchymal opacities most consistent with atelectasis. Levon Sheehan MD Abdomen/Pelvis CT 08/22/17 0000 Signed Impressions: Service Date/Time: Tuesday, August 22, 2017 19:18 - CONCLUSION: Hepatomegaly with findings suggesting diffuse inhomogeneity and possible ill-defined low density lesions metastatic disease. Left kidney upper pole 3 mm calyceal stones with cortical thinning indicating remote inflammatory process. Bilateral basilar lung subcentimeter nodular density consistent with metastatic disease. Intra-abdominal contents reveal no evidence of free air or free fluid or abscess formation Julio César Gomez MD Head CT 08/21/172128 Signed Impressions: Service Date/Time: Monday, August 21, 2017 21:53 - CONCLUSION: Unremarkable study. Irasema Araujo MD Abdomen X-Ray 08/21/17 0000 Signed Impressions: Service Date/Time: Monday, August 21, 2017 21:44 - CONCLUSION: Nonspecific abdomen. Irasema Araujo MD Assessment and Plan Disease Oriented Problem List: (1) fever, possible sepsis, possible UTI (2) mild, intermittent confusion,likely due to infection Comment: Cleared on 08/24/17 (3) widely metastatic non-small cell cancer, unknown primary (4) anemia (5) hypertension (6) osteoarthritis (7) anxiety (8) hepatitis C 2002 Symptom Scale: (1) pain 0-10 Scale: 1 (improving while she is here) (2) anxiety 0-10 Scale: 1 (3) fatigue, weakness 0-10 Scale: 4 (a little better now) Pertinent Non-Medical Issues Psychosocial: , 2 daughters, disabled due to back pain, lives with daughter. Spiritual: The patient has a Bahai background, and her spirituality has been important for her. She would like a tin container straightener to come and visit her while she is in the hospital. Legal: The patient has some mild intermittent confusion, but I do believe she has capacity for making healthcare decisions at this time. She has designated her daughter Margo as healthcare surrogate. Ethical issues impacting care: None . Important Contacts Daughter/HCS: Margo Jones [phone] Daughter: Sally Jones [phone] . Prognosis The patient is terminal, likely with weeks to live. She is appropriate for hospice services. . Code Status: No Code Plan * DO NOT RESUSCITATE * DECISION-MAKING: The patient and daughter note that her confusion has cleared , and she now has capacity for making healthcare decisions at this time. She has designated her daughter Margo as healthcare surrogate. * SYMPTOMS: Her abdominal pain seems to be improving as the infection has been treated. She remains on just the 25 g fentanyl and the PRN oxycodone. * GOALS: The patient confirms that she wants to remain DNR and does not want any additional chemotherapy. The patient and her daughter would like to engage hospice services at the time of discharge. * Palliative Care will continue to follow the patient during this hospitalization. . Time Spent Total Floor Time (mins): 39 Face to Face Time (mins): 25 >50% Counseling/Coord of Care: Yes Attestation To help prompt me to consider important information that might be impacting today's encounter and assessment, information from prior notes written by myself or my colleagues may have been "brought forward" into today's note. My signature on this note, however, is an attestation that I personally performed the exam, history, and/or decision-making noted today, and, unless otherwise indicated, the interactions with patient, family, and staff as well as the review of records all occurred today. I also attest that the listed assessment and stated plan reflect my best clinical judgment today based on the combination of historical information, prior notes, and today's exam/ interactions. When time spent is documented, it refers only to time spent today by the signer, or if indicated, combined time spent today by collaborating physician/nurse practitioner. Nellie Li MD Aug 24, 2017 13:37
[2017-08-24] MEDS: FILGRASTIM INJ 480 MCG in DEXTROSE 5% IN WATER INJ 48.4 ML IV SCH ×2 (15:11)
[2017-08-24] MEDS: SODIUM CHLORIDE 0.9% FLUSH 10 ML FLUSH IV FLUSH SCH ×2 (15:14→20:00)
[2017-08-24] MEDS: ACETAMINOPHEN 325 MG TAB PO PRN (20:04)
[2017-08-24 22:01] LABS: EOSINOPHIL % 1.9 % (0.0-4.0); HEMATOCRIT 27.6 % (35.0-46.0); LYMPH % 23.4 % (9.0-44.0); LYMPHOCYTE # 0.3 TH/MM3 (1.0-4.8); MEAN CELL VOLUME 89.1 FL (80.0-100.0); MEAN CORPUSCULAR HEMOGLOBIN 29.6 PG (27.0-34.0); MEAN CORPUSCULAR HGB CONC 33.3 % (32.0-36.0); MONO % 1.8 % (0.0-8.0); NEUT % 71.9 % (16.0-70.0); PLATELET COUNT 29 TH/MM3 (150-450); RED CELL DISTRIBUTION WIDTH 19.1 % (11.6-17.2); WHITE BLOOD COUNT 1.4 TH/MM3 (4.0-11.0)
[2017-08-24 22:03] LABS: HEMO FLAGS AUTO DIFF
[2017-08-24 22:48] LABS: BANDS 5 % (0-6); METAMYELOCYTES 1 % (0-1); NEUTROPHIL # MANUAL DIFF 1.2 TH/MM3 (1.8-7.7); PLATELET ESTIMATE SMEAR LOW (NORMAL); PLATELET MORPHOLOGY NORMAL (NORMAL); POLYS (SEG NEUTROPHILS) 78 % (16-70); SCAN/DIFF FINAL DIFF MANUAL; WBC DIFF SAMPLE 100
[2017-08-24 22:49] LABS: TEARDROP RBCS 1+ (NORMAL)
[2017-08-24 22:50] LABS: DOHLE BODIES PRESENT (NONE SEEN); TOXIC GRANULATION 1+ (NORMAL)
[2017-08-25] VITALS (9 sets, daily range): BP systolic 104–124; BP diastolic 59–64; PULSE 73–88; RESP 14–20; TEMP 97.7–99.3; O2SAT 95–100
[2017-08-25] MEDS: SODIUM CHLOR 0.9% 1000 ML INJ 1,000 ML IV SCH ×3 (03:00→23:00)
[2017-08-25] MEDS: SODIUM CHLORIDE 0.9% FLUSH 10 ML FLUSH IV FLUSH SCH ×2 (09:00→20:47)
[2017-08-25] MEDS: CEFEPIME INJ 2,000 MG in SODIUM CHLORIDE 0.9% INJ 100 ML IV SCH ×2 (09:36→20:45)
[2017-08-25] MEDS ORDERED: REMOVE OLD DURAGESIC (FENTANYL) PATCH T-DERMAL SCH (11:00)
--- NOTE | 2017-08-25 11:13 | PD.ONC.PN ---
Subjective Subjective Remarks tired and momentarily tearful. occasional abdominal discomfort Objective Data Date Time Temp Pulse Resp B/P (MAP) Pulse Ox O2 Delivery O2 Flow Rate FiO2 08/25/17 08:00 98.9 77 18 112/59 (76) 100 08/25/17 07:00 73 08/25/17 04:00 97.7 80 14 104/63 (77) 95 08/25/17 00:45 98.0 08/24/17 23:30 100.5 87 16 100/52 (68) 100 08/24/17 21:00 100.7 08/24/17 20:00 92 08/24/17 20:00 101.7 90 16 132/57 (82) 98 08/24/17 16:50 99.1 79 18 119/53 08/24/17 16:36 99.1 75 120/54 08/24/17 14:48 98.8 77 20 112/56 (74) 100 08/24/17 13:46 98.6 69 18 106/46 (66) 100 08/24/17 12:00 82 08/25/17 08/25/17 08/25/17 07:00 15:00 23:00 Intake Total 1420 ml 100 ml Balance 1420 ml 100 ml Result Diagram: 08/24/17211408/24/17 0518 Laboratory Results Laboratory Tests Test 08/24/17 21:15 White Blood Count 1.4 TH/MM3 Red Blood Count 3.10 MIL/MM3 Hemoglobin 9.2 GM/DL Hematocrit 27.6 % Mean Corpuscular Volume 89.1 FL Mean Corpuscular Hemoglobin 29.6 PG Mean Corpuscular Hemoglobin Concent 33.3 % Red Cell Distribution Width 19.1 % Platelet Count 29 TH/MM3 Mean Platelet Volume 8.4 FL Neutrophils (%) (Auto) 71.9 % Lymphocytes (%) (Auto) 23.4 % Monocytes (%) (Auto) 1.8 % Eosinophils (%) (Auto) 1.9 % Basophils (%) (Auto) 1.0 % Neutrophils # (Auto) 1.0 TH/MM3 Lymphocytes # (Auto) 0.3 TH/MM3 Monocytes # (Auto) 0.0 TH/MM3 Eosinophils # (Auto) 0.0 TH/MM3 Basophils # (Auto) 0.0 TH/MM3 CBC Comment AUTO DIFF Differential Total Cells Counted 100 Neutrophils % (Manual) 78 % Band Neutrophils % 5 % Lymphocytes % 16 % Neutrophils # (Manual) 1.2 TH/MM3 Metamyelocytes 1 % Differential Comment FINAL DIFF MANUAL Toxic Granulation 1+ Dohle Bodies PRESENT Platelet Estimate LOW Platelet Morphology Comment NORMAL Tear Drop Cells 1+ Ovalocytes Administered Medications Medications (Trade) Dose Ordered Sig/Amanda Route PRN Reason Start Time Stop Time Status Last Admin Dose Admin Sodium Chloride (NS Flush) 2 ml BID IV FLUSH 08/22/17 09:00 08/24/17 20:00 Cefepime HCl 2000 mg/Sodium Chloride 100 ml @ 200 mls/hr Q12H IV 08/22/17 08:00 08/25/17 09:36 Hydromorphone HCl (Dilaudid Pf Inj) 0.5 mg Q2H PRN IV PUSH BREAKTHROUGH PAIN 08/22/17 03:30 08/22/17 08:10 Enoxaparin Sodium (Lovenox Inj) 40 mg Q24H SQ 08/22/17 03:30 Future Hold 08/23/17 04:11 Fentanyl (Duragesic 25 Mcg Patch.72 Hr) 1 patch Q3D T-DERMAL 08/22/17 11:00 08/22/17 12:04 Sodium Chloride 1,000 ml @ 100 mls/hr Q10H IV 08/22/17 15:00 08/25/17 03:00 Acetaminophen (Tylenol) 650 mg Q6HR PRN PO temp > 100.4 08/22/17 19:45 08/24/17 20:04 Filgrastim 480 mcg/Dextrose 50 ml @ 100 mls/hr DAILY@14 IV 08/24/17 14:00 08/24/17 15:11 Acetaminophen (Tylenol) 650 mg Q4H PRN PO SEE LABEL COMMENTS 08/24/17 08:15 08/24/17 08:25 Diphenhydramine HCl (Benadryl) 25 mg Q4H PRN PO SEE LABEL COMMENTS 08/24/17 08:15 08/24/17 08:24 Objective Remarks GENERAL: Well-nourished, well-developed patient. SKIN: Warm and dry. HEAD: Normocephalic. EYES: No scleral icterus. No injection or drainage. NECK: Supple, trachea midline. No JVD or lymphadenopathy. LYMPHATIC: No adenopathy. CARDIOVASCULAR: Regular rate and rhythm without murmurs. RESPIRATORY: Breath sounds equal bilaterally. No accessory muscle use. GASTROINTESTINAL: mild tenderness. EXTREMITIES: No cyanosis, or edema. MUSCULOSKELETAL: Adequate muscle tone. NEUROLOGICAL: No obvious focal deficit. Awake, alert, and oriented x3. PSYCHIATRIC: tearful. Assessment/Plan Assessment 56y/o female with metastatic carcinoma of unknown primary, admitted with mental status change and febrile illness. 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 Hepatitis C-->treated with interferon in the past Anxiety. Osteoarthritis. Hypertension. Complete hysterectomy. Back surgery twice. Port placement. patient doing better and temperature down on antibiotics it will take additional 3-4 days to resolve. Plan 1: continue antibiotics and expect counts to recover in 3-4 days from adriamycin administered 11 days ago. 2: overall prognosis poor and likelihood of response at this this point small and supportive care may end up being appropriate 3: mild abd tenderness. probably related to tumor. no evidence of acute abdomen 4: continue to monitor cbc plat and support with platelets and RBC as needed 5: tried to reassure patient that she will recover form acute event in next several days. Anton Gamboa MD Aug 25, 2017 11:12
[2017-08-25] MEDS: diphenhydrAMINE HCL 25 MG CAP PO PRN (11:21)
[2017-08-25] MEDS: fentaNYL 25 MCG/HR PATCH T-DERMAL SCH (11:24)
--- NOTE | 2017-08-25 13:09 | HHI.PR ---
Subjective Remarks Follow-up for abdominal pain in a patient with metastatic cancer of unknown primary. Patient is currently doing well. She is much more alert, conversational today. She is sitting up in bed and eating breakfast at the time of this interview. Denies any chest pain, shortness of breath, fever, chills. Tolerating diet well. She is still not sure about future chemotherapy. Objective Vitals Vital Signs Date Time Temp Pulse Resp B/P (MAP) Pulse Ox O2 Delivery O2 Flow Rate FiO2 08/25/17 08:00 98.9 77 18 112/59 (76) 100 08/25/17 07:00 73 08/25/17 04:00 97.7 80 14 104/63 (77) 95 08/25/17 00:45 98.0 08/24/17 23:30 100.5 87 16 100/52 (68) 100 08/24/17 21:00 100.7 08/24/17 20:00 92 08/24/17 20:00 101.7 90 16 132/57 (82) 98 08/24/17 16:50 99.1 79 18 119/53 08/24/17 16:36 99.1 75 120/54 08/24/17 14:48 98.8 77 20 112/56 (74) 100 08/24/17 13:46 98.6 69 18 106/46 (66) 100 I/O 08/24/17 08/24/17 08/24/17 08/25/17 08/25/17 08/25/17 07:00 15:00 23:00 07:00 15:00 23:00 Intake Total 2943 ml 400 ml 1700 ml 1420 ml 100 ml Output Total 1 ml Balance 2942 ml 400 ml 1700 ml 1420 ml 100 ml Intake Oral 480 ml 1200 ml 420 ml IV Total 2463 ml 100 ml 1000 ml 100 ml Packed Cells 400 ml 400 ml Output Urine Total 1 ml # Voids 4 2 Result Diagram: 08/24/17211408/24/17 0518 Imaging Last Impressions Chest X-Ray 08/23/17 0000 Signed Impressions: Service Date/Time: August 09:45 - CONCLUSION: 1. Stable linear bibasilar parenchymal opacities most consistent with atelectasis. Levon Sheehan MD Abdomen/Pelvis CT 08/22/17 0000 Signed Impressions: Service Date/Time: Tuesday, August 22, 2017 19:18 - CONCLUSION: Hepatomegaly with findings suggesting diffuse inhomogeneity and possible ill-defined low density lesions metastatic disease. Left kidney upper pole 3 mm calyceal stones with cortical thinning indicating remote inflammatory process. Bilateral basilar lung subcentimeter nodular density consistent with metastatic disease. Intra-abdominal contents reveal no evidence of free air or free fluid or abscess formation Julio César Gomez MD Head CT 08/21/172128 Signed Impressions: Service Date/Time: Monday, August 21, 2017 21:53 - CONCLUSION: Unremarkable study. Irasema Araujo MD Abdomen X-Ray 08/21/17 0000 Signed Impressions: Service Date/Time: Monday, August 21, 2017 21:44 - CONCLUSION: Nonspecific abdomen. Irasema Araujo MD Objective Remarks GENERAL: Alert, NAD. SKIN: Warm and dry. HEAD: Normocephalic. EYES: No scleral icterus. No injection or drainage. NECK: Supple, trachea midline. No JVD or lymphadenopathy. CARDIOVASCULAR: Regular rate and rhythm without murmurs, gallops, or rubs. RESPIRATORY: Breath sounds equal bilaterally. No accessory muscle use. GASTROINTESTINAL: Abdomen soft, non-tender, nondistended. MUSCULOSKELETAL: No cyanosis, or edema. BACK: Nontender without obvious deformity. No CVA tenderness. 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 She has been through various chemotherapy in 2016 and recently developed progression of disease. She received doxorubicin in the last 1 week. Daughter at bedside states that patient did not tolerate last cycle of doxorubicin well. Patient does not wish to continue chemotherapy. - Metastatic poorly differentiated carcinoma of unknown primary - Metastasis to liver and bone - Oncology following. - Palliative care following. - Patient has received 4 units of PRBCs so far. - Anemia of chronic disease - Hgb on admission 5.9, received two units. Dropped again to 5.4 and receiving 2 additional units on 08/24/2017. Improved to 9.2. - Thrombocytopenia - PLT 29K on 08/24/2017 after transfusion. - Suspected UTI - Fever - not neutropenic so far. Neutrophil count yesterday was - Patient was started on Cefepime which we will continue for now. - Urine cx shows no growth. - If okay with oncology, we can try to discontinue all abx and observe patient. - Temp 100.7 last night. Continue Cefepime for now. DNR. SCDs. Lovenox on hold due to thrombocytopenia. Lizzy Troncoso DO Aug 25, 2017 1:09 pm
[2017-08-25] MEDS: FILGRASTIM INJ 480 MCG in DEXTROSE 5% IN WATER INJ 48.4 ML IV SCH ×2 (13:38)
[2017-08-25 16:03] LABS: EOSINOPHIL % 2.5 % (0.0-4.0); HEMATOCRIT 26.9 % (35.0-46.0); LYMPH % 44.3 % (9.0-44.0); LYMPHOCYTE # 0.3 TH/MM3 (1.0-4.8); MEAN CELL VOLUME 88.9 FL (80.0-100.0); MEAN CORPUSCULAR HEMOGLOBIN 29.2 PG (27.0-34.0); MEAN CORPUSCULAR HGB CONC 32.9 % (32.0-36.0); MONO % 3.4 % (0.0-8.0); NEUT % 48.8 % (16.0-70.0); RED BLOOD COUNT 3.03 MIL/MM3 (4.00-5.30); RED CELL DISTRIBUTION WIDTH 18.9 % (11.6-17.2); WHITE BLOOD COUNT 0.8 TH/MM3 (4.0-11.0)
[2017-08-25 17:27] LABS: HEMO FLAGS AUTO DIFF
[2017-08-25 17:28] LABS: PLATELET COUNT 17 TH/MM3 (150-450)
[2017-08-25 17:29] LABS: AUTOMATED NEUTROPHIL # 0.4 TH/MM3 (1.8-7.7)
[2017-08-25 17:30] LABS: SCAN/DIFF AUTO DIFF CONFIRMED
[2017-08-26] VITALS (14 sets, daily range): BP systolic 108–159; BP diastolic 54–84; PULSE 68–102; RESP 16–21; TEMP 97.9–100.6; O2SAT 97–100
[2017-08-26] MEDS: ACETAMINOPHEN 325 MG TAB PO PRN ×3 (00:33→23:47)
[2017-08-26 06:39] LABS: HEMATOCRIT 23.6 % (35.0-46.0); MEAN CELL VOLUME 89.9 FL (80.0-100.0); MEAN CORPUSCULAR HEMOGLOBIN 29.8 PG (27.0-34.0); MEAN CORPUSCULAR HGB CONC 33.1 % (32.0-36.0); RED BLOOD COUNT 2.62 MIL/MM3 (4.00-5.30); RED CELL DISTRIBUTION WIDTH 19.1 % (11.6-17.2); WHITE BLOOD COUNT 0.6 TH/MM3 (4.0-11.0)
[2017-08-26 06:45] LABS: HEMO FLAGS AUTO DIFF
[2017-08-26 06:47] LABS: PLATELET COUNT 9 TH/MM3 (150-450)
[2017-08-26 07:48] LABS: BASOPHILS 9 % (0-2); EOSINOPHILS 2 % (0-4); NEUTROPHIL # MANUAL DIFF 0.2 TH/MM3 (1.8-7.7); PLATELET ESTIMATE SMEAR RARE (NORMAL); PLATELET MORPHOLOGY NORMAL (NORMAL); POLYS (SEG NEUTROPHILS) 32 % (16-70); SCAN/DIFF FINAL DIFF MANUAL; WBC DIFF SAMPLE 44
[2017-08-26 07:49] LABS: TEARDROP RBCS 1+ (NORMAL)
[2017-08-26] MEDS ORDERED: ACETAMINOPHEN 325 MG TAB PO PRN (08:30)
[2017-08-26] MEDS ORDERED: SODIUM CHLOR 0.9% 250 ML INJ 250 ML IV ONE (08:30)
[2017-08-26] MEDS ORDERED: diphenhydrAMINE HCL 25 MG CAP PO PRN (08:30)
[2017-08-26] MEDS: SODIUM CHLORIDE 0.9% FLUSH 10 ML FLUSH IV FLUSH SCH ×2 (09:00→20:07)
[2017-08-26] MEDS: SODIUM CHLOR 0.9% 1000 ML INJ 1,000 ML IV SCH ×2 (09:00→18:33)
[2017-08-26] MEDS: CEFEPIME INJ 2,000 MG in SODIUM CHLORIDE 0.9% INJ 100 ML IV SCH ×2 (09:51→20:04)
--- NOTE | 2017-08-26 10:04 | PD.ONC.PN ---
Subjective Subjective Remarks Tmax 100.2 overnight Pt having some abdominal pain today; requesting an oxycodone Reports overall her abdominal pain is "much better than it used to be" Objective Data Date Time Temp Pulse Resp B/P (MAP) Pulse Ox O2 Delivery O2 Flow Rate FiO2 08/26/17 06:02 98.8 82 16 142/65 (90) 99 08/26/17 04:07 73 08/26/17 01:30 16 08/26/17 00:30 88 08/26/17 00:27 100.2 88 20 108/55 (72) 98 08/25/17 21:46 18 08/25/17 20:49 99.3 87 20 124/60 (81) 100 08/25/17 20:10 77 08/25/17 16:43 97.8 81 18 122/60 (80) 98 08/25/17 15:00 87 08/25/17 14:01 98.4 88 18 110/64 (79) 99 08/26/17 08/26/17 08/26/17 07:00 15:00 23:00 Intake Total 923 ml Balance 923 ml Result Diagram: 08/26/17 0609 08/24/17 0518 Laboratory Results Laboratory Tests Test 08/25/17 13:48 08/26/17 06:09 White Blood Count 0.8 TH/MM3 0.6 TH/MM3 Red Blood Count 3.03 MIL/MM3 2.62 MIL/MM3 Hemoglobin 8.8 GM/DL 7.8 GM/DL Hematocrit 26.9 % 23.6 % Mean Corpuscular Volume 88.9 FL 89.9 FL Mean Corpuscular Hemoglobin 29.2 PG 29.8 PG Mean Corpuscular Hemoglobin Concent 32.9 % 33.1 % Red Cell Distribution Width 18.9 % 19.1 % Platelet Count 17 TH/MM3 9 TH/MM3 Mean Platelet Volume 8.8 FL 8.6 FL Neutrophils (%) (Auto) 48.8 % Lymphocytes (%) (Auto) 44.3 % Monocytes (%) (Auto) 3.4 % Eosinophils (%) (Auto) 2.5 % Basophils (%) (Auto) 1.0 % Neutrophils # (Auto) 0.4 TH/MM3 Lymphocytes # (Auto) 0.3 TH/MM3 Monocytes # (Auto) 0.0 TH/MM3 Eosinophils # (Auto) 0.0 TH/MM3 Basophils # (Auto) 0.0 TH/MM3 CBC Comment AUTO DIFF AUTO DIFF Differential Comment AUTO DIFF CONFIRMED FINAL DIFF MANUAL Differential Total Cells Counted 44 Neutrophils % (Manual) 32 % Lymphocytes % 57 % Eosinophils % 2 % Basophils % 9 % Neutrophils # (Manual) 0.2 TH/MM3 Platelet Estimate RARE Platelet Morphology Comment NORMAL Tear Drop Cells 1+ Administered Medications Medications (Trade) Dose Ordered Sig/Amanda Route PRN Reason Start Time Stop Time Status Last Admin Dose Admin Sodium Chloride (NS Flush) 2 ml BID IV FLUSH 08/22/17 09:00 08/24/17 20:00 Cefepime HCl 2000 mg/Sodium Chloride 100 ml @ 200 mls/hr Q12H IV 08/22/17 08:00 08/25/17 20:45 Hydromorphone HCl (Dilaudid Pf Inj) 0.5 mg Q2H PRN IV PUSH BREAKTHROUGH PAIN 08/22/17 03:30 08/22/17 08:10 Enoxaparin Sodium (Lovenox Inj) 40 mg Q24H SQ 08/22/17 03:30 Future Hold 08/23/17 04:11 Fentanyl (Duragesic 25 Mcg Patch.72 Hr) 1 patch Q3D T-DERMAL 08/22/17 11:00 08/25/17 11:24 Miscellaneous Information 1 Q3D T-DERMAL 08/25/17 11:00 08/25/17 11:00 Sodium Chloride 1,000 ml @ 100 mls/hr Q10H IV 08/22/17 15:00 08/25/17 15:41 Acetaminophen (Tylenol) 650 mg Q6HR PRN PO temp > 100.4 08/22/17 19:45 08/26/17 00:33 Filgrastim 480 mcg/Dextrose 50 ml @ 100 mls/hr DAILY@14 IV 08/24/17 14:00 08/25/17 13:38 Oxycodone HCl (Roxicodone) 20 mg Q8H PRN PO PAIN SCALE 5 TO 10 08/25/17 10:30 08/25/17 20:46 Diphenhydramine HCl (Benadryl) 25 mg Q6H PRN PO ITCHING 08/25/17 10:15 08/25/17 11:21 Objective Remarks GENERAL: Older female, resting in bed in no acute distress. SKIN: Warm and dry. HEAD: Normocephalic. EYES: No scleral icterus. No injection or drainage. NECK: Supple, trachea midline. No JVD or lymphadenopathy. CARDIOVASCULAR: Regular rate and rhythm without murmurs. RESPIRATORY: Clear posteriorly. Breathing unlabored. GASTROINTESTINAL: Soft but mildly tender to palpation. EXTREMITIES: No cyanosis, or edema. MUSCULOSKELETAL: Adequate muscle tone. NEUROLOGICAL: No obvious focal deficit. Awake, alert, and oriented x3. Assessment/Plan Assessment 56y/o female with metastatic carcinoma of unknown primary, admitted with mental status change and febrile illness. 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 Hepatitis C-->treated with interferon in the past Anxiety. Osteoarthritis. Hypertension. Complete hysterectomy. Back surgery twice. Port placement. patient doing better and temperature down on antibiotics it will take additional 3-4 days to resolve. Plan Platelets have dropped today to 9k; will administer 1 unit platelets. She continues to have abdominal pain that is likely related to her metastatic disease. She reports that this does not feel any different than her usual abdominal pain. Noted that she had a low grade fever of 100.2 overnight. Continue cefepime. It is expected that her counts will recover in the next few days but her overall prognosis remains poor. Attending Statement The exam, history, and the medical decision-making described in the above note were completed with the assistance of the mid-level provider. I reviewed and agree with the findings presented. I attest that I had a [id number] encounter with the patient on the same day, and personally performed and documented my assessment and findings in the medical record. patient overall is the same. counts have fallen from chemo and she is to receive platelet transfusion today. continue cefepime. check cbc plat in am. Micaela Barth Aug 26, 2017 10:04 Anton Gamboa MD Aug 26, 2017 13:45
[2017-08-26] MEDS: diphenhydrAMINE HCL 25 MG CAP PO PRN (11:55)
--- NOTE | 2017-08-26 13:18 | HHI.PR ---
Subjective Remarks Follow-up for abdominal pain in a patient with metastatic cancer of unknown primary, neutropenic fever. Patient is currently doing well. Denies any acute concerns. Objective Vitals Vital Signs Date Time Temp Pulse Resp B/P (MAP) Pulse Ox O2 Delivery O2 Flow Rate FiO2 08/26/17 12:19 99.1 98 18 117/70 100 08/26/17 11:50 99.6 76 18 110/54 (72) 100 08/26/17 10:50 18 08/26/17 08:00 70 08/26/17 08:00 98.0 102 18 124/73 (90) 100 08/26/17 06:02 98.8 82 16 142/65 (90) 99 08/26/17 04:07 73 08/26/17 01:30 16 08/26/17 00:30 88 08/26/17 00:27 100.2 88 20 108/55 (72) 98 08/25/17 20:49 99.3 87 20 124/60 (81) 100 08/25/17 20:10 77 08/25/17 16:43 97.8 81 18 122/60 (80) 98 08/25/17 15:00 87 08/25/17 14:01 98.4 88 18 110/64 (79) 99 I/O 08/25/17 08/25/17 08/25/17 08/26/17 08/26/17 08/26/17 07:00 15:00 23:00 07:00 15:00 23:00 Intake Total 1420 ml 150 ml 420 ml 923 ml Balance 1420 ml 150 ml 420 ml 923 ml Intake Oral 420 ml 420 ml IV Total 1000 ml 150 ml 923 ml # Voids 2 3 2 Result Diagram: 08/26/17 0609 08/24/17 0518 Imaging Last Impressions Chest X-Ray 08/23/17 0000 Signed Impressions: Service Date/Time: August 09:45 - CONCLUSION: 1. Stable linear bibasilar parenchymal opacities most consistent with atelectasis. Levon Sheehan MD Abdomen/Pelvis CT 08/22/17 0000 Signed Impressions: Service Date/Time: Tuesday, August 22, 2017 19:18 - CONCLUSION: Hepatomegaly with findings suggesting diffuse inhomogeneity and possible ill-defined low density lesions metastatic disease. Left kidney upper pole 3 mm calyceal stones with cortical thinning indicating remote inflammatory process. Bilateral basilar lung subcentimeter nodular density consistent with metastatic disease. Intra-abdominal contents reveal no evidence of free air or free fluid or abscess formation Julio César Gomez MD Head CT [id number]/21/[id number] Signed Impressions: Service Date/Time: Monday, August 21, 2017 21:53 - CONCLUSION: Unremarkable study. Irasema Araujo MD Abdomen X-Ray 08/21/17 0000 Signed Impressions: Service Date/Time: Monday, August 21, 2017 21:44 - CONCLUSION: Nonspecific abdomen. Irasema Araujo MD Objective Remarks GENERAL: Alert, NAD. SKIN: Warm and dry. HEAD: Normocephalic. EYES: No scleral icterus. No injection or drainage. NECK: Supple, trachea midline. No JVD or lymphadenopathy. CARDIOVASCULAR: Regular rate and rhythm without murmurs, gallops, or rubs. RESPIRATORY: Breath sounds equal bilaterally. No accessory muscle use. GASTROINTESTINAL: Abdomen soft, non-tender, nondistended. MUSCULOSKELETAL: No cyanosis, or edema. BACK: Nontender without obvious deformity. No CVA tenderness. Procedures None A/P Problem List: (1) Metastatic carcinoma involving liver with unknown primary site ICD Code: C78.7 - Secondary malignant neoplasm of liver and intrahepatic bile duct; C80.1 - Malignant (primary) neoplasm, unspecified (2) Metastatic carcinoma involving bone with unknown primary site ICD Code: C79.51 - Secondary malignant neoplasm of bone; C80.1 - Malignant ( primary) neoplasm, unspecified (3) Neutropenic fever ICD Code: D70.9 - Neutropenia, unspecified; R50.81 - Fever presenting with conditions classified elsewhere (4) thrombocytopenia due to chemotherapy (5) Pancytopenia due to antineoplastic chemotherapy ICD Code: D61.810 - Antineoplastic chemotherapy induced pancytopenia; T45.1X5A - Adverse effect of antineoplastic and immunosuppressive drugs, initial encounter Assessment and Plan Ms. 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 She has been through various chemotherapy in 2016 and recently developed progression of disease. She received doxorubicin in the last 1 week. Daughter at bedside states that patient did not tolerate last cycle of doxorubicin well. Patient does not wish to continue chemotherapy. - Metastatic poorly differentiated carcinoma of unknown primary - Metastasis to liver and bone - Oncology following. - Palliative care following. - Patient has received 4 units of PRBCs so far. - Anemia of chronic disease - Hgb on admission 5.9, received two units. Dropped again to 5.4 and received 2 additional units on 08/24/2017. Hgb 7.8 today. - Pancytopenia due to antineoplastic drugs - Neutropenic fever - Patient's platelet count is 9K today. She will received platelet transfusion today. - Absolute neutrophil count 200. Patient is on neutropenic precaution. She is also on cefepime. - Per oncology, Neutropenia expected to improve in the next 3-4 days. Will continue abx and supportive care - Suspected UTI - Continue cefepime. DNR. SCDs. Lovenox on hold due to thrombocytopenia. Discharge Plan: Once neutropenia and fever resolves, we could potentially discharge patient home. Lizzy Troncoso DO Aug 26, 2017 1:18 pm
[2017-08-26] MEDS: FILGRASTIM INJ 480 MCG in DEXTROSE 5% IN WATER INJ 48.4 ML IV SCH ×2 (15:11)
[2017-08-27] VITALS (11 sets, daily range): BP systolic 118–135; BP diastolic 60–76; PULSE 75–106; RESP 16–20; TEMP 97.7–99.6; O2SAT 99
[2017-08-27] MEDS: SODIUM CHLOR 0.9% 1000 ML INJ 1,000 ML IV SCH ×2 (05:35→20:16)
[2017-08-27 06:16] LABS: HEMATOCRIT 28.6 % (35.0-46.0); MEAN CELL VOLUME 90.3 FL (80.0-100.0); MEAN CORPUSCULAR HEMOGLOBIN 29.5 PG (27.0-34.0); MEAN CORPUSCULAR HGB CONC 32.7 % (32.0-36.0); RED BLOOD COUNT 3.17 MIL/MM3 (4.00-5.30); WHITE BLOOD COUNT 0.8 TH/MM3 (4.0-11.0)
[2017-08-27 06:28] LABS: HEMO FLAGS AUTO DIFF
[2017-08-27 06:32] LABS: PLATELET COUNT 12 TH/MM3 (150-450)
[2017-08-27] MEDS ORDERED: SODIUM CHLOR 0.9% 250 ML INJ 250 ML IV ONE (08:00)
[2017-08-27 08:15] LABS: NEUTROPHIL # MANUAL DIFF 0.1 TH/MM3 (1.8-7.7); PLATELET ESTIMATE SMEAR LOW (NORMAL); POLYS (SEG NEUTROPHILS) 15 % (16-70); SCAN/DIFF FINAL DIFF MANUAL; WBC DIFF SAMPLE 20
[2017-08-27 08:17] LABS: PLATELET MORPHOLOGY NORMAL (NORMAL)
[2017-08-27] MEDS: CEFEPIME INJ 2,000 MG in SODIUM CHLORIDE 0.9% INJ 100 ML IV SCH ×2 (08:46→20:17)
[2017-08-27] MEDS: SODIUM CHLORIDE 0.9% FLUSH 10 ML FLUSH IV FLUSH SCH ×2 (08:52→20:17)
--- NOTE | 2017-08-27 10:06 | HHI.PR ---
Subjective Remarks Follow-up for abdominal pain in a patient with metastatic cancer of unknown primary, neutropenic fever. Patient is currently doing well. Denies any fevers chills. Denies any acute concerns overnight. A temperature of 100.6F was reported at 2338 on 08/26/2017. No fever since then. Objective Vitals Vital Signs Date Time Temp Pulse Resp B/P (MAP) Pulse Ox O2 Delivery O2 Flow Rate FiO2 08/27/17 08:52 98.8 76 16 118/60 (79) 99 08/27/17 05:57 97.7 106 20 131/76 (94) 99 08/27/17 04:32 75 08/27/17 00:47 16 08/27/17 00:06 85 08/26/17 23:38 100.6 99 159/84 (109) 98 08/26/17 20:05 84 08/26/17 19:32 16 08/26/17 19:17 98.6 73 21 136/66 (89) 97 08/26/17 15:09 97.9 68 16 110/55 (73) 100 08/26/17 15:06 98.7 70 16 110/55 100 08/26/17 15:00 68 08/26/17 12:45 98.9 97 18 131/78 100 08/26/17 12:19 99.1 98 18 117/70 100 08/26/17 11:50 99.6 76 18 110/54 (72) 100 I/O 08/26/17 08/26/17 08/26/17 08/27/17 08/27/17 08/27/17 07:00 15:00 23:00 07:00 15:00 23:00 Intake Total 923 ml 100 ml 1352 ml Balance 923 ml 100 ml 1352 ml Intake Oral 960 ml IV Total 923 ml 100 ml 100 ml Platelets 292 ml # Voids 2 3 3 Result Diagram: 08/27/17 0555 08/24/17 0518 Imaging Last Impressions Chest X-Ray 08/23/17 0000 Signed Impressions: Service Date/Time: August 09:45 - CONCLUSION: 1. Stable linear bibasilar parenchymal opacities most consistent with atelectasis. Levon Sheehan MD Abdomen/Pelvis CT 08/22/17 0000 Signed Impressions: Service Date/Time: Tuesday, August 22, 2017 19:18 - CONCLUSION: Hepatomegaly with findings suggesting diffuse inhomogeneity and possible ill-defined low density lesions metastatic disease. Left kidney upper pole 3 mm calyceal stones with cortical thinning indicating remote inflammatory process. Bilateral basilar lung subcentimeter nodular density consistent with metastatic disease. Intra-abdominal contents reveal no evidence of free air or free fluid or abscess formation Julio César Gomez MD Head CT [id number]/21/172128 Signed Impressions: Service Date/Time: Monday, August 21, 2017 21:53 - CONCLUSION: Unremarkable study. Irasema Araujo MD Abdomen X-Ray 08/21/17 0000 Signed Impressions: Service Date/Time: Monday, August 21, 2017 21:44 - CONCLUSION: Nonspecific abdomen. Irasema Araujo MD Objective Remarks GENERAL: Alert, NAD. SKIN: Warm and dry. HEAD: Normocephalic. EYES: No scleral icterus. No injection or drainage. NECK: Supple, trachea midline. No JVD or lymphadenopathy. CARDIOVASCULAR: Regular rate and rhythm without murmurs, gallops, or rubs. RESPIRATORY: Breath sounds equal bilaterally. No accessory muscle use. GASTROINTESTINAL: Abdomen soft, non-tender, nondistended. MUSCULOSKELETAL: No cyanosis, or edema. BACK: Nontender without obvious deformity. No CVA tenderness. Procedures None A/P Problem List: (1) Metastatic carcinoma involving liver with unknown primary site ICD Code: C78.7 - Secondary malignant neoplasm of liver and intrahepatic bile duct; C80.1 - Malignant (primary) neoplasm, unspecified (2) Metastatic carcinoma involving bone with unknown primary site ICD Code: C79.51 - Secondary malignant neoplasm of bone; C80.1 - Malignant ( primary) neoplasm, unspecified (3) Neutropenic fever ICD Code: D70.9 - Neutropenia, unspecified; R50.81 - Fever presenting with conditions classified elsewhere (4) thrombocytopenia due to chemotherapy (5) Pancytopenia due to antineoplastic chemotherapy ICD Code: D61.810 - Antineoplastic chemotherapy induced pancytopenia; T45.1X5A - Adverse effect of antineoplastic and immunosuppressive drugs, initial encounter Assessment and Plan Ms. 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 She has been through various chemotherapy in 2016 and recently developed progression of disease. She received doxorubicin in the last 1 week. Daughter at bedside states that patient did not tolerate last cycle of doxorubicin well. Patient does not wish to continue chemotherapy. - Metastatic poorly differentiated carcinoma of unknown primary - Metastasis to liver and bone - Oncology following. - Palliative care following. - Patient has received 4 units of PRBCs so far. - Anemia of chronic disease - Hgb on admission 5.9, received two units. Dropped again to 5.4 and received 2 additional units on 08/24/2017. Hgb 7.8 today. - Pancytopenia due to antineoplastic drugs - Neutropenic fever - Patient's platelet count is 12K today. She will received platelet transfusion today. - Absolute neutrophil count 100. Patient is on neutropenic precaution. She is also on cefepime. - Per oncology, Neutropenia expected to improve in the next few days. Will continue abx and supportive care - Suspected UTI - Continue cefepime. DNR. SCDs. Lovenox on hold due to thrombocytopenia. Discharge Plan: Once neutropenia and fever resolves, we could potentially discharge patient home. Lizzy Troncoso DO Aug 27, 2017 10:06 am
--- NOTE | 2017-08-27 11:05 | PD.ONC.PN ---
Subjective Subjective Remarks Tmax 100.6 overnight. Reports pain in abdomen is controlled. No complaints at present. Objective Data Date Time Temp Pulse Resp B/P (MAP) Pulse Ox O2 Delivery O2 Flow Rate FiO2 08/27/17 08:52 98.8 76 16 118/60 (79) 99 08/27/17 05:57 97.7 106 20 131/76 (94) 99 08/27/17 04:32 75 08/27/17 00:47 16 08/27/17 00:06 85 08/26/17 23:38 100.6 99 159/84 (109) 98 08/26/17 20:05 84 08/26/17 19:32 16 08/26/17 19:17 98.6 73 21 136/66 (89) 97 08/26/17 15:09 97.9 68 16 110/55 (73) 100 08/26/17 15:06 98.7 70 16 110/55 100 08/26/17 15:00 68 08/26/17 12:45 98.9 97 18 131/78 100 08/26/17 12:19 99.1 98 18 117/70 100 08/26/17 11:50 99.6 76 18 110/54 (72) 100 Result Diagram: 08/27/17 0555 08/24/17 0518 Laboratory Results Laboratory Tests Test 08/27/17 05:55 White Blood Count 0.8 TH/MM3 Red Blood Count 3.17 MIL/MM3 Hemoglobin 9.4 GM/DL Hematocrit 28.6 % Mean Corpuscular Volume 90.3 FL Mean Corpuscular Hemoglobin 29.5 PG Mean Corpuscular Hemoglobin Concent 32.7 % Red Cell Distribution Width 19.0 % Platelet Count 12 TH/MM3 Mean Platelet Volume 8.9 FL CBC Comment AUTO DIFF Differential Total Cells Counted 20 Neutrophils % (Manual) 15 % Lymphocytes % 70 % Monocytes % 15 % Neutrophils # (Manual) 0.1 TH/MM3 Differential Comment FINAL DIFF MANUAL Platelet Estimate LOW Platelet Morphology Comment NORMAL Culture Results Microbiology Date/Time Source Procedure Growth Status 08/27/17 01:52 Blood Other Aerobic Blood Culture Pending Received 08/27/17 01:52 Blood Other Anaerobic Blood Culture Pending Received 08/27/17 00:05 Blood Other Aerobic Blood Culture Pending Received 08/27/17 00:05 Blood Other Anaerobic Blood Culture Pending Received Administered Medications Medications (Trade) Dose Ordered Sig/Amanda Route PRN Reason Start Time Stop Time Status Last Admin Dose Admin Sodium Chloride (NS Flush) 2 ml BID IV FLUSH 08/22/17 09:00 08/26/17 20:07 Cefepime HCl 2000 mg/Sodium Chloride 100 ml @ 200 mls/hr Q12H IV 08/22/17 08:00 08/27/17 08:46 Hydromorphone HCl (Dilaudid Pf Inj) 0.5 mg Q2H PRN IV PUSH BREAKTHROUGH PAIN 08/22/17 03:30 08/22/17 08:10 Enoxaparin Sodium (Lovenox Inj) 40 mg Q24H SQ 08/22/17 03:30 Future Hold 08/23/17 04:11 Fentanyl (Duragesic 25 Mcg Patch.72 Hr) 1 patch Q3D T-DERMAL 08/22/17 11:00 08/25/17 11:24 Miscellaneous Information 1 Q3D T-DERMAL 08/25/17 11:00 08/25/17 11:00 Sodium Chloride 1,000 ml @ 100 mls/hr Q10H IV 08/22/17 15:00 08/27/17 05:35 Acetaminophen (Tylenol) 650 mg Q6HR PRN PO temp > 100.4 08/22/17 19:45 08/26/17 23:47 Filgrastim 480 mcg/Dextrose 50 ml @ 100 mls/hr DAILY@14 IV 08/24/17 14:00 08/26/17 15:11 Oxycodone HCl (Roxicodone) 20 mg Q8H PRN PO PAIN SCALE 5 TO 10 08/25/17 10:30 08/26/17 18:32 Diphenhydramine HCl (Benadryl) 25 mg Q6H PRN PO ITCHING 08/25/17 10:15 08/26/17 11:55 Objective Remarks GENERAL: Middle aged female lying in bed in nad. SKIN: Warm and dry. port in place, left chest wall. HEAD: Normocephalic. EYES: No injection or drainage. NECK: Supple, trachea midline. CARDIOVASCULAR: Regular rate and rhythm RESPIRATORY: Breath sounds equal bilaterally. No accessory muscle use. GASTROINTESTINAL: Abdomen soft, non-tender, nondistended. EXTREMITIES: No cyanosis NEUROLOGICAL: awake and alert, normal speech. moving all extremities. Assessment/Plan Problem List: (1) Abdominal pain, generalized ICD Codes: R10.84 - Generalized abdominal pain Plan: --currently on Fentanyl TD 25mcg + Roxicodone 30mg PO q 8 --has a increased abdominal pain likely due to metastatic disease. CT ab/ pelvis on 08/22 showed hepatomegaly with findings suggesting diffuse inhomogeneity and possible ill-defined low density lesions. + Bilateral basilar lung subcentimeter nodular density consistent with metastatic disease. (2) Metastatic carcinoma involving liver with unknown primary site ICD Codes: C78.7 - Secondary malignant neoplasm of liver and intrahepatic bile duct; C80.1 - Malignant (primary) neoplasm, unspecified Plan: --Metastatic poorly differentiated carcinoma, unknown primary. --has metastatic disease in the liver and bone. --first diagnosed in December of 2015. --Workup did not showed the primary tumor. --had been treated with various chemotherapy. --recently finished a course of topotecan but developed progression disease. --just started first cycle of doxorubicin the week prior to admission. too early to assess response at this time. (3) fever, possible sepsis, possible UTI Plan: --now neutropenic --on Neupogen --Urinalysis showed possible urinary tract infection. --BC no growth --UC no growth --on Cefepime. (4) Pancytopenia due to antineoplastic chemotherapy ICD Codes: D61.810 - Antineoplastic chemotherapy induced pancytopenia; T45.1X5A - Adverse effect of antineoplastic and immunosuppressive drugs, initial encounter Plan: --started on Neupogen on 08/23. --transfuse pRBC and platelets as needed to keep hgb>7.5, platelets>10K Assessment 56y/o female with metastatic carcinoma of unknown primary, admitted with mental status change and febrile illness. 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 Hepatitis C-->treated with interferon in the past Anxiety. Osteoarthritis. Hypertension. Complete hysterectomy. Back surgery twice. Port placement. patient doing better and temperature down on antibiotics it will take additional 3-4 days to resolve. Plan 1. obtain repeat urinalysis for continued fevers 2. give 1 unit platelets 3. continue supportive care Attending Statement The exam, history, and the medical decision-making described in the above note were completed with the assistance of the mid-level provider. I reviewed and agree with the findings presented. I attest that I had a [id number] encounter with the patient on the same day, and personally performed and documented my assessment and findings in the medical record. Abdominal better controlled. Still febrile. Culture negative to date. Repeat U/A. Continue abx. Blood counts nadiring, continue transfusion prn and continue neupogen. Ashlee Wilhelm Aug 27, 2017 11:05 Franky Camarena MD Aug 27, 2017 15:38
[2017-08-27] MEDS: FILGRASTIM INJ 480 MCG in DEXTROSE 5% IN WATER INJ 48.4 ML IV SCH ×2 (14:30)
[2017-08-28] VITALS (10 sets, daily range): BP systolic 122–149; BP diastolic 62–83; PULSE 79–88; RESP 15–20; TEMP 97.9–98.9; O2SAT 98–100
[2017-08-28] MEDS: SODIUM CHLOR 0.9% 1000 ML INJ 1,000 ML IV SCH ×2 (00:39→19:42)
[2017-08-28 05:48] LABS: HEMATOCRIT 24.1 % (35.0-46.0); MEAN CELL VOLUME 89.5 FL (80.0-100.0); MEAN CORPUSCULAR HEMOGLOBIN 29.4 PG (27.0-34.0); MEAN CORPUSCULAR HGB CONC 32.8 % (32.0-36.0); RED BLOOD COUNT 2.69 MIL/MM3 (4.00-5.30); RED CELL DISTRIBUTION WIDTH 18.6 % (11.6-17.2)
[2017-08-28 05:55] LABS: HEMO FLAGS AUTO DIFF
[2017-08-28 05:56] LABS: PLATELET COUNT 19 TH/MM3 (150-450)
[2017-08-28] MEDS ORDERED: SODIUM CHLOR 0.9% 250 ML INJ 250 ML IV ONE (08:15)
[2017-08-28] MEDS: CEFEPIME INJ 2,000 MG in SODIUM CHLORIDE 0.9% INJ 100 ML IV SCH ×2 (09:00→19:40)
[2017-08-28 09:05] LABS: BANDS 16 % (0-6); EOSINOPHILS 2 % (0-4); POLYS (SEG NEUTROPHILS) 14 % (16-70); WBC DIFF SAMPLE 50
[2017-08-28 09:06] LABS: PLATELET ESTIMATE SMEAR LOW (NORMAL); PLATELET MORPHOLOGY NORMAL (NORMAL); SCAN/DIFF FINAL DIFF MANUAL
[2017-08-28 09:11] LABS: NEUTROPHIL # MANUAL DIFF 0.3 TH/MM3 (1.8-7.7)
--- NOTE | 2017-08-28 09:23 | HHI.PR ---
Subjective Remarks Follow-up for abdominal pain in a patient with metastatic cancer of unknown primary, neutropenic fever. Patient is currently doing well. No acute concerns. Tolerating diet better. Remains afebrile. Objective Vitals Vital Signs Date Time Temp Pulse Resp B/P (MAP) Pulse Ox O2 Delivery O2 Flow Rate FiO2 08/28/17 08:00 81 18 132/64 (86) 100 08/28/17 04:11 98.9 83 18 135/82 (99) 100 08/28/17 00:23 84 08/28/17 00:10 98.6 81 16 149/83 (105) 100 08/27/17 20:15 99.4 85 18 131/76 (94) 99 08/27/17 20:02 84 08/27/17 17:28 99.6 92 16 135/64 (87) 99 08/27/17 12:16 98.4 82 17 118/60 (79) 99 08/27/17 12:00 81 08/27/17 11:27 98.4 82 17 118/60 99 I/O 08/27/17 08/27/17 08/27/17 08/28/17 08/28/17 08/28/17 07:00 15:00 23:00 07:00 15:00 23:00 Intake Total 272 ml Balance 272 ml Platelets 272 ml # Voids 3 1 # Bowel Movements 1 Result Diagram: 08/28/17 0419 08/24/17 0518 Imaging Last Impressions Chest X-Ray 08/23/17 0000 Signed Impressions: Service Date/Time: August 09:45 - CONCLUSION: 1. Stable linear bibasilar parenchymal opacities most consistent with atelectasis. Levon Sheehan MD Abdomen/Pelvis CT 08/22/17 0000 Signed Impressions: Service Date/Time: Tuesday, August 22, 2017 19:18 - CONCLUSION: Hepatomegaly with findings suggesting diffuse inhomogeneity and possible ill-defined low density lesions metastatic disease. Left kidney upper pole 3 mm calyceal stones with cortical thinning indicating remote inflammatory process. Bilateral basilar lung subcentimeter nodular density consistent with metastatic disease. Intra-abdominal contents reveal no evidence of free air or free fluid or abscess formation Julio César Gomez MD Head CT [id number]/21/[id number] Signed Impressions: Service Date/Time: Monday, August 21, 2017 21:53 - CONCLUSION: Unremarkable study. Irasema Araujo MD Abdomen X-Ray 08/21/17 0000 Signed Impressions: Service Date/Time: Monday, August 21, 2017 21:44 - CONCLUSION: Nonspecific abdomen. Irasema Araujo MD Objective Remarks GENERAL: Alert, NAD. SKIN: Warm and dry. HEAD: Normocephalic. EYES: No scleral icterus. No injection or drainage. NECK: Supple, trachea midline. No JVD or lymphadenopathy. CARDIOVASCULAR: Regular rate and rhythm without murmurs, gallops, or rubs. RESPIRATORY: Breath sounds equal bilaterally. No accessory muscle use. GASTROINTESTINAL: Abdomen soft, non-tender, nondistended. MUSCULOSKELETAL: No cyanosis, or edema. BACK: Nontender without obvious deformity. No CVA tenderness. Procedures None A/P Problem List: (1) Metastatic carcinoma involving liver with unknown primary site ICD Code: C78.7 - Secondary malignant neoplasm of liver and intrahepatic bile duct; C80.1 - Malignant (primary) neoplasm, unspecified (2) Metastatic carcinoma involving bone with unknown primary site ICD Code: C79.51 - Secondary malignant neoplasm of bone; C80.1 - Malignant ( primary) neoplasm, unspecified (3) Neutropenic fever ICD Code: D70.9 - Neutropenia, unspecified; R50.81 - Fever presenting with conditions classified elsewhere (4) thrombocytopenia due to chemotherapy (5) Pancytopenia due to antineoplastic chemotherapy ICD Code: D61.810 - Antineoplastic chemotherapy induced pancytopenia; T45.1X5A - Adverse effect of antineoplastic and immunosuppressive drugs, initial encounter Assessment and Plan Ms. 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 She has been through various chemotherapy in 2016 and recently developed progression of disease. She received doxorubicin in the last 1 week. Daughter at bedside states that patient did not tolerate last cycle of doxorubicin well. Patient does not wish to continue chemotherapy. - Metastatic poorly differentiated carcinoma of unknown primary - Metastasis to liver and bone - Oncology following. - Palliative care following. - Patient has received 4 units of PRBCs so far. - Anemia of chronic disease - Hgb on admission 5.9. Has received multiple transfusions. Hgb 7.9 today. Transfuse if Hgb < 7.0. - Pancytopenia due to antineoplastic drugs - Neutropenic fever - Patient's platelet count is 19K today. - Absolute neutrophil count 300. Patient is on neutropenic precaution. She is also on cefepime. - Will continue abx and supportive care - Suspected UTI - Continue cefepime. DNR. SCDs. Lovenox on hold due to thrombocytopenia. Discharge Plan: Once neutropenia and fever resolves, we could potentially discharge patient home. Neutrophil count is trending up 100 --> 300. Lizzy Troncoso DO Aug 28, 2017 9:23 am
[2017-08-28 10:05] LABS: BACTERIA, URINE FEW /hpf; BLOOD, URINE TRACE (NEG); COMMENT (UR) CULTURE INDICATED; CULTURE IF INDICATED CULTURE INDICATED; GLUCOSE,URINE NEG (NEG); HYALINE CAST, URINE 2 /lpf (RARE); KETONE, URINE TRACE mg/dL (NEG); MUCUS URINE MANY /lpf (OCC); NITRITE,URINE NEG (NEG); SQUAMOUS EPITHELIAL CELL URINE 7 /hpf (0-5); URINE COLOR YELLOW (YELLW/STRAW)
[2017-08-28] MEDS: fentaNYL 25 MCG/HR PATCH T-DERMAL SCH (10:59)
--- NOTE | 2017-08-28 11:07 | PD.ONC.PN ---
Subjective Subjective Remarks Afebrile overnight. Patient resting in bed in nad. Denies pain in abdomen. Feeling well today. Ate some of her breakfast. Objective Data Date Time Temp Pulse Resp B/P (MAP) Pulse Ox O2 Delivery O2 Flow Rate FiO2 08/28/17 08:00 81 18 132/64 (86) 100 08/28/17 04:11 98.9 83 18 135/82 (99) 100 08/28/17 00:23 84 08/28/17 00:10 98.6 81 16 149/83 (105) 100 08/27/17 20:15 99.4 85 18 131/76 (94) 99 08/27/17 20:02 84 08/27/17 17:28 99.6 92 16 135/64 (87) 99 08/27/17 12:16 98.4 82 17 118/60 (79) 99 08/27/17 12:00 81 08/27/17 11:27 98.4 82 17 118/60 99 Result Diagram: 08/28/17 0419 08/24/17 0518 Laboratory Results Laboratory Tests Test 08/28/17 04:19 08/28/17 07:17 White Blood Count 1.0 TH/MM3 Red Blood Count 2.69 MIL/MM3 Hemoglobin 7.9 GM/DL Hematocrit 24.1 % Mean Corpuscular Volume 89.5 FL Mean Corpuscular Hemoglobin 29.4 PG Mean Corpuscular Hemoglobin Concent 32.8 % Red Cell Distribution Width 18.6 % Platelet Count 19 TH/MM3 Mean Platelet Volume 8.7 FL CBC Comment AUTO DIFF Differential Total Cells Counted 50 Neutrophils % (Manual) 14 % Band Neutrophils % 16 % Lymphocytes % 42 % Monocytes % 26 % Eosinophils % 2 % Neutrophils # (Manual) 0.3 TH/MM3 Differential Comment FINAL DIFF MANUAL Platelet Estimate LOW Platelet Morphology Comment NORMAL Red Cell Morphology Comment NORMAL Urine Color YELLOW Urine Turbidity HAZY Urine pH 6.0 Urine Specific [place] 1.020 Urine Protein 30 mg/dL Urine Glucose (UA) NEG mg/dL Urine Ketones TRACE mg/dL Urine Occult Blood TRACE Urine Nitrite NEG Urine Bilirubin NEG Urine Urobilinogen LESS THAN 2.0 MG/DL Urine Leukocyte Esterase MOD Urine RBC 15 /hpf Urine WBC 44 /hpf Urine Squamous Epithelial Cells 7 /hpf Urine Bacteria FEW /hpf Urine Hyaline Casts 2 /lpf Urine Mucus MANY /lpf Microscopic Urinalysis Comment CULTURE INDICATED Culture Results Microbiology Date/Time Source Procedure Growth Status 08/27/17 01:52 Blood Other Aerobic Blood Culture Pending Received 08/27/17 01:52 Blood Other Anaerobic Blood Culture Pending Received 08/27/17 00:05 Blood Other Aerobic Blood Culture Pending Received 08/27/17 00:05 Blood Other Anaerobic Blood Culture Pending Received 08/28/17 07:17 Urine Clean Catch Urine Culture Pending Received Administered Medications Medications (Trade) Dose Ordered Sig/Amanda Route PRN Reason Start Time Stop Time Status Last Admin Dose Admin Sodium Chloride (NS Flush) 2 ml BID IV FLUSH 08/22/17 09:00 08/26/17 20:07 Cefepime HCl 2000 mg/Sodium Chloride 100 ml @ 200 mls/hr Q12H IV 08/22/17 08:00 08/28/17 09:00 Hydromorphone HCl (Dilaudid Pf Inj) 0.5 mg Q2H PRN IV PUSH BREAKTHROUGH PAIN 08/22/17 03:30 08/22/17 08:10 Enoxaparin Sodium (Lovenox Inj) 40 mg Q24H SQ 08/22/17 03:30 Future Hold 08/23/17 04:11 Fentanyl (Duragesic 25 Mcg Patch.72 Hr) 1 patch Q3D T-DERMAL 08/22/17 11:00 08/28/17 10:59 Miscellaneous Information 1 Q3D T-DERMAL 08/25/17 11:00 08/25/17 11:00 Sodium Chloride 1,000 ml @ 100 mls/hr Q10H IV 08/22/17 15:00 08/27/17 20:16 Acetaminophen (Tylenol) 650 mg Q6HR PRN PO temp > 100.4 08/22/17 19:45 08/26/17 23:47 Filgrastim 480 mcg/Dextrose 50 ml @ 100 mls/hr DAILY@14 IV 08/24/17 14:00 08/27/17 14:30 Oxycodone HCl (Roxicodone) 20 mg Q8H PRN PO PAIN SCALE 5 TO 10 08/25/17 10:30 08/26/17 18:32 Diphenhydramine HCl (Benadryl) 25 mg Q6H PRN PO ITCHING 08/25/17 10:15 08/26/17 11:55 Objective Remarks GENERAL: Middle aged female upright on side of bed in nad. SKIN: Warm and dry. port, left chest wall. HEAD: Normocephalic. EYES: No injection or drainage. NECK: Supple, trachea midline. CARDIOVASCULAR: Regular rate and rhythm RESPIRATORY: Breath sounds equal bilaterally. No accessory muscle use. GASTROINTESTINAL: Abdomen soft, non-tender, nondistended. EXTREMITIES: No cyanosis NEUROLOGICAL: awake and alert and appropriate. normal speech. Assessment/Plan Problem List: (1) Abdominal pain, generalized ICD Codes: R10.84 - Generalized abdominal pain Plan: --currently on Fentanyl TD 25mcg + Roxicodone 30mg PO q 8 --has a increased abdominal pain likely due to metastatic disease. CT ab/ pelvis on 08/22 showed hepatomegaly with findings suggesting diffuse inhomogeneity and possible ill-defined low density lesions. + Bilateral basilar lung subcentimeter nodular density consistent with metastatic disease. (2) Metastatic carcinoma involving liver with unknown primary site ICD Codes: C78.7 - Secondary malignant neoplasm of liver and intrahepatic bile duct; C80.1 - Malignant (primary) neoplasm, unspecified Plan: --Metastatic poorly differentiated carcinoma, unknown primary. --has metastatic disease in the liver and bone. --first diagnosed in December of 2015. --Workup did not showed the primary tumor. --had been treated with various chemotherapy. --recently finished a course of topotecan but developed progression disease. --just started first cycle of doxorubicin the week prior to admission. too early to assess response at this time. (3) fever, possible sepsis, possible UTI Plan: --now neutropenic --on Neupogen --Urinalysis showed possible urinary tract infection. --BC no growth --UC, 08/27 pending --on Cefepime. (4) Pancytopenia due to antineoplastic chemotherapy ICD Codes: D61.810 - Antineoplastic chemotherapy induced pancytopenia; T45.1X5A - Adverse effect of antineoplastic and immunosuppressive drugs, initial encounter Plan: --started on Neupogen on 08/23. --transfuse pRBC and platelets as needed to keep hgb>7.5, platelets>10K Assessment 56y/o female with metastatic carcinoma of unknown primary, admitted with mental status change and febrile illness. 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 Hepatitis C-->treated with interferon in the past Anxiety. Osteoarthritis. Hypertension. Complete hysterectomy. Back surgery twice. Port placement. patient doing better and temperature down on antibiotics it will take additional 3-4 days to resolve. Plan 1. continue Neupogen and antibiotics 2. await count recovery 3. await repeat urine culture Attending Statement The exam, history, and the medical decision-making described in the above note were completed with the assistance of the mid-level provider. I reviewed and agree with the findings presented. I attest that I had a [id number] encounter with the patient on the same day, and personally performed and documented my assessment and findings in the medical record.Abdominal pain better controlled. Afebrile for >24hours. Counts still nadiring. Continue transfusion support and neupogen. Ashlee Wilhelm Aug 28, 2017 11:07 Franky Camarena MD Aug 28, 2017 17:04
[2017-08-28] MEDS: FILGRASTIM INJ 480 MCG in DEXTROSE 5% IN WATER INJ 48.4 ML IV SCH ×2 (14:26)
--- NOTE | 2017-08-28 17:32 | HHI.HCPN ---
Reason for visit a. To assist with evaluation and management of symptoms including: Pain, confusion b. To assist medical decision maker(s) with: better understanding of current medical conditions; weighing benefits/burdens of medical treatment options; making medical treatment decisions. . (Yesi Boggs) Subjective/Interval History Patient seen in her room. She was resting in bed in no acute distress. Patient alert to self, place and situation. Verbal, able to communicate needs. Patient reports that pain has been much controlled with current fentanyl patch and Roxicodone. Patient reported to abdomen and lower back. Remains intermittent, worsening with physical activity and alleviated with rest, pain medication. Patient denies shortness of breath, nausea vomiting or abdominal discomfort. Reported frequent soft bowel movements. Reports appetite is fair. No family at bedside.Patient remains afebrile, stable hemodynamically. Currently tolerating room air with oxygen saturation in the high 90s. Laboratory workup today revealing WBC 1.0, Hgb 7.9, platelet count 19. Ongoing platelet transfusion at the time of my visit. Oncology following. Goals of care conversation with patient. She reports that now that she is feeling better she may reconsider continuation of chemotherapy. Hospice philosophy and benefits previously introduced, patient verbalized not being interested in hospice at this time. Patient's goal is to discharge home, reports that rufus Archer will assist upon discharge. Case discussed with hematology oncology COOPER Funez. . Family/friend interactions No family at bedside. . (Yesi Boggs) Advance Directives Living Will: Copy in medical record Health Care Surrogate: Copy in medical record (Yesi Boggs) Advance Directive Specifics Date completed: March 2017 Health Care Surrogate(s): Rufus Jones . Documented care wishes: The patient has a living will with typical language . Significant change in goals: No code. Patient electing to continue aggressive management will of no code. . (Yesi Boggs) Objective Vital Signs Date Time Temp Pulse Resp B/P (MAP) Pulse Ox O2 Delivery O2 Flow Rate FiO2 08/28/17 16:22 79 08/28/17 16:20 97.9 88 18 134/82 (99) 100 08/28/17 13:05 18 128/62 08/28/17 12:00 98.8 80 20 128/72 (90) 98 08/28/17 08:00 98.4 81 18 132/64 (86) 100 08/28/17 04:11 98.9 83 18 135/82 (99) 100 08/28/17 00:23 84 08/28/17 00:10 98.6 81 16 149/83 (105) 100 08/27/17 20:15 99.4 85 18 131/76 (94) 99 08/27/17 20:02 84 08/27/17 17:28 99.6 92 16 135/64 (87) 99 Intake & Output 08/28/17 08/28/17 07:00 19:00 # Voids 1 # Bowel Movements 1 Physical Exam CONSTITUTIONAL/GENERAL: This is a moderately weak, fatigued patient, in no apparent distress. NECK: Trachea midline. Supple, nontender. CARDIOVASCULAR: Regular rate and rhythm without murmurs, gallops, or rubs. No JVD. Peripheral pulses symmetric. RESPIRATORY/CHEST: Symmetric, unlabored respirations. Clear to auscultation. Breath sounds equal bilaterally. No wheezes, rales, or rhonchi. GASTROINTESTINAL: Abdomen soft, non-tender, nondistended. No hepato-splenomegaly , or palpable masses. No guarding. Bowel sounds present. MUSCULOSKELETAL: Extremities without clubbing, cyanosis, or edema. No joint tenderness or effusion noted. No calf tenderness. No mottling or clubbing. NEUROLOGICAL: Awake and alert. Some weakness. Follows commands. Cognitively sharp. Moves all extremities. PSYCHIATRIC: No obvious anxiety/depression. no apparent hallucinations or other psychotic thought process. Alert and oriented 3. . (Yesi Boggs) Diagnostic Tests Laboratory Laboratory Tests Test 08/26/17 06:09 08/27/17 05:55 08/28/17 04:19 08/28/17 07:17 White Blood Count 0.6 TH/MM3 (4.0-11.0) 0.8 TH/MM3 (4.0-11.0) 1.0 TH/MM3 (4.0-11.0) Red Blood Count 2.62 MIL/MM3 (4.00-5.30) 3.17 MIL/MM3 (4.00-5.30) 2.69 MIL/MM3 (4.00-5.30) Hemoglobin 7.8 GM/DL (11.6-15.3) 9.4 GM/DL (11.6-15.3) 7.9 GM/DL (11.6-15.3) Hematocrit 23.6 % (35.0-46.0) 28.6 % (35.0-46.0) 24.1 % (35.0-46.0) Mean Corpuscular Volume 89.9 FL (80.0-100.0) 90.3 FL (80.0-100.0) 89.5 FL (80.0-100.0) Mean Corpuscular Hemoglobin 29.8 PG (27.0-34.0) 29.5 PG (27.0-34.0) 29.4 PG (27.0-34.0) Mean Corpuscular Hemoglobin Concent 33.1 % (32.0-36.0) 32.7 % (32.0-36.0) 32.8 % (32.0-36.0) Red Cell Distribution Width 19.1 % (11.6-17.2) 19.0 % (11.6-17.2) 18.6 % (11.6-17.2) Platelet Count 9 TH/MM3 (150-450) 12 TH/MM3 (150-450) 19 TH/MM3 (150-450) Mean Platelet Volume 8.6 FL (7.0-11.0) 8.9 FL (7.0-11.0) 8.7 FL (7.0-11.0) CBC Comment AUTO DIFF AUTO DIFF AUTO DIFF Differential Total Cells Counted 44 20 50 Neutrophils % (Manual) 32 % (16-70) 15 % (16-70) 14 % (16-70) Lymphocytes % 57 % (9-44) 70 % (9-44) 42 % (9-44) Eosinophils % 2 % (0-4) 2 % (0-4) Basophils % 9 % (0-2) Neutrophils # (Manual) 0.2 TH/MM3 (1.8-7.7) 0.1 TH/MM3 (1.8-7.7) 0.3 TH/MM3 (1.8-7.7) Differential Comment FINAL DIFF MANUAL FINAL DIFF MANUAL FINAL DIFF MANUAL Platelet Estimate RARE (NORMAL) LOW (NORMAL) LOW (NORMAL) Platelet Morphology Comment NORMAL (NORMAL) NORMAL (NORMAL) NORMAL (NORMAL) Tear Drop Cells 1+ (NORMAL) Monocytes % 15 % (0-8) 26 % (0-8) Band Neutrophils % 16 % (0-6) Red Cell Morphology Comment NORMAL (NORMAL) Urine Color YELLOW (YELLW/STRAW) Urine Turbidity HAZY (CLEAR) Urine pH 6.0 (5.0-8.5) Urine Specific [place] 1.020 (1.002-1.035) Urine Protein 30 mg/dL (NEG-TRACE) Urine Glucose (UA) NEG mg/dL (NEG) Urine Ketones TRACE mg/dL (NEG) Urine Occult Blood TRACE (NEG) Urine Nitrite NEG (NEG) Urine Bilirubin NEG (NEG) Urine Urobilinogen LESS THAN 2.0 MG/DL (LESS Urine Leukocyte Esterase MOD (NEG) Urine RBC 15 /hpf (0-3) Urine WBC 44 /hpf (0-5) Urine Squamous Epithelial Cells 7 /hpf (0-5) Urine Bacteria FEW /hpf (NONE) Urine Hyaline Casts 2 /lpf (RARE) Urine Mucus MANY /lpf (OCC) Microscopic Urinalysis Comment CULTURE INDICATED (Yesi Boggs) Result Diagram: 08/28/17 0419 08/24/17 0518 Microbiology Microbiology Date/Time Source Procedure Growth Status 08/27/17 01:52 Blood Other Aerobic Blood Culture - Preliminary NO GROWTH IN 1 DAY Resulted 08/27/17 01:52 Blood Other Anaerobic Blood Culture - Preliminary NO GROWTH IN 1 DAY Resulted 08/27/17 00:05 Blood Other Aerobic Blood Culture - Preliminary NO GROWTH IN 1 DAY Resulted 08/27/17 00:05 Blood Other Anaerobic Blood Culture - Preliminary NO GROWTH IN 1 DAY Resulted 08/28/17 07:17 Urine Clean Catch Urine Culture Pending Received (Yesi Boggs) Assessment and Plan Disease Oriented Problem List: (1) Pancytopenia due to antineoplastic chemotherapy (2) widely metastatic non-small cell cancer, unknown primary (3) anemia (4) hypertension (5) osteoarthritis (6) anxiety (7) hepatitis C 2002 Symptom Scale: (1) pain 0-10 Scale: 4 (2) anxiety 0-10 Scale: 0 (3) fatigue, weakness 0-10 Scale: 5 Pertinent Non-Medical Issues Psychosocial: , 2 daughters, disabled due to back pain, lives with daughter. Spiritual: The patient has a Hol[employer] background, and her spirituality has been important for her. She would like a leasing property manager to come and visit her while she is in the hospital. Legal: The patient has some mild intermittent confusion, but I do believe she has capacity for making healthcare decisions at this time. She has designated her daughter Margo as healthcare surrogate. Ethical issues impacting care: None . Important Contacts Daughter/HCS: Margo Jones [phone] Daughter: Sally Jones [phone] . Prognosis Mrs. 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 Patient admitted on 08/21/17 for evaluation of altered mental status and fever. Patient status post chemotherapy in 2016 with progression of disease. Clinical course complicated by pancytopenia due to antineoplastic chemotherapy, status post transfusion of platelets and packed red blood cells. Patient at a very high risk for further complications, continue decline and . . Code Status: No Code Plan * CODE STATUS: DNR/DNI. Confirmed with patient on 08/28/17. * HEALTHCARE DECISION-MAKING: Patient participating in medical decision-making, confusion has cleared. Advanced directives completed. Patient has designated her daughter Margo Jones as healthcare surrogate decision maker. * GOALS OF CARE: Patient wishing to continue current medical management short of no code. Considering further antineoplastic treatment. Receptive to hospice should her clinical condition continues to worsen; however, declining hospice at this time. * SYMPTOMS: =Pain, multifactorial secondary to burden of disease. Chronic pain to back, bone metastasis, liver metastasis. Endorsing intermittent pain to lower back and abdomen. Her abdominal pain seems to be improving as the infection has been treated. She remains on 25 mcg fentanyl and the PRN oxycodone. = Debility, secondary to acute illness and metastatic carcinoma. * Case discussed with COOPER Funez. * Palliative care contact information has been provided to patient. * Palliative care will continue to follow-up as needed for further clarifications of goals of care as patient's clinical course continues to evolve. . (Yesi Boggs) Time Spent Total Floor Time (mins): 38 (Total time to include review medical records, physical exam, goals of care conversation with patient, case discussion with oncology. ) >50% Counseling/Coord of Care: Yes (Yesi Boggs) Attestation To help prompt me to consider important information that might be impacting today's encounter and assessment, information from prior notes written by myself or my colleagues may have been "brought forward" into today's note. My signature on this note, however, is an attestation that I personally performed the exam, history, and/or decision-making noted today, and, unless otherwise indicated, the interactions with patient, family, and staff as well as the review of records all occurred today. I also attest that the listed assessment and stated plan reflect my best clinical judgment today based on the combination of historical information, prior notes, and today's exam/ interactions. When time spent is documented, it refers only to time spent today by the signer, or if indicated, combined time spent today by collaborating physician/nurse practitioner. (Yesi Boggs) Collaborating MD Comments Chart reviewed. Case discussed with palliative care GASKET MAKER. Above note reviewed and I concur. . (Rajinder Rader MD) Yesi Boggs Aug 28, 2017 17:32 Rajinder Rader MD Aug 30, 2017 17:18
[2017-08-28] MEDS: SODIUM CHLORIDE 0.9% FLUSH 10 ML FLUSH IV FLUSH SCH (19:42)
[2017-08-28] MEDS ORDERED: ALPRAZolam 1 MG TAB PO ONE (22:00)
[2017-08-29] VITALS (9 sets, daily range): BP systolic 119–139; BP diastolic 59–71; PULSE 75–88; RESP 16–18; TEMP 97.4–99.3; O2SAT 99–100
[2017-08-29] MEDS: SODIUM CHLOR 0.9% 1000 ML INJ 1,000 ML IV SCH ×2 (04:22→18:05)
[2017-08-29 05:05] LABS: HEMATOCRIT 24.2 % (35.0-46.0); MEAN CELL VOLUME 88.8 FL (80.0-100.0); MEAN CORPUSCULAR HEMOGLOBIN 30.1 PG (27.0-34.0); MEAN CORPUSCULAR HGB CONC 33.9 % (32.0-36.0); RED BLOOD COUNT 2.72 MIL/MM3 (4.00-5.30)
[2017-08-29 05:41] LABS: HEMO FLAGS AUTO DIFF
[2017-08-29 05:50] LABS: PLATELET COUNT 18 TH/MM3 (150-450)
[2017-08-29] MEDS ORDERED: SODIUM CHLOR 0.9% 250 ML INJ 250 ML IV ONE (07:00)
[2017-08-29] MEDS: CEFEPIME INJ 2,000 MG in SODIUM CHLORIDE 0.9% INJ 100 ML IV SCH ×2 (08:44→20:34)
[2017-08-29 08:46] LABS: BANDS 12 % (0-6); METAMYELOCYTES 6 % (0-1); NEUTROPHIL # MANUAL DIFF 2.2 TH/MM3 (1.8-7.7); POLYS (SEG NEUTROPHILS) 56 % (16-70); TOXIC GRANULATION 2+ (NORMAL); TOXIC VACUOLATION PRESENT (NONE SEEN); WBC DIFF SAMPLE 100
[2017-08-29 08:47] LABS: DOHLE BODIES PRESENT (NONE SEEN); OVALOCYTES 1+ (NORMAL); TEARDROP RBCS 1+ (NORMAL)
[2017-08-29 08:48] LABS: PLATELET ESTIMATE SMEAR LOW (NORMAL); PLATELET MORPHOLOGY ENLARGED (NORMAL); SCAN/DIFF FINAL DIFF MANUAL
--- NOTE | 2017-08-29 12:01 | PD.ONC.PN ---
Subjective Subjective Remarks Afebrile overnight Patient reports she had a rough day yesterday in regards to her abdominal pain but she feels much better today Hoping to go home soon Objective Data Date Time Temp Pulse Resp B/P (MAP) Pulse Ox O2 Delivery O2 Flow Rate FiO2 08/29/17 11:28 99.0 80 18 122/64 100 08/29/17 08:32 97.4 88 18 130/66 (87) 99 08/29/17 08:32 99 Room Air 08/29/17 04:00 98.4 78 16 132/71 (91) 100 08/28/17 23:00 98.3 84 15 133/68 (89) 99 08/28/17 20:05 98.7 88 15 122/62 (82) 100 08/28/17 20:05 85 08/28/17 17:23 22 08/28/17 16:22 79 08/28/17 16:20 97.9 88 18 134/82 (99) 100 08/28/17 16:00 20 08/28/17 13:05 18 128/62 08/28/17 12:00 98.8 80 20 128/72 (90) 98 08/29/17 08/29/17 08/29/17 06:59 14:59 22:59 Intake Total 1000 ml Balance 1000 ml Result Diagram: 08/29/17 0423 Laboratory Results Laboratory Tests Test 08/29/17 04:23 White Blood Count 3.0 TH/MM3 Red Blood Count 2.72 MIL/MM3 Hemoglobin 8.2 GM/DL Hematocrit 24.2 % Mean Corpuscular Volume 88.8 FL Mean Corpuscular Hemoglobin 30.1 PG Mean Corpuscular Hemoglobin Concent 33.9 % Red Cell Distribution Width 19.0 % Platelet Count 18 TH/MM3 Mean Platelet Volume 8.9 FL CBC Comment AUTO DIFF Differential Total Cells Counted 100 Neutrophils % (Manual) 56 % Band Neutrophils % 12 % Lymphocytes % 11 % Monocytes % 15 % Neutrophils # (Manual) 2.2 TH/MM3 Metamyelocytes 6 % Differential Comment FINAL DIFF MANUAL Toxic Granulation 2+ Toxic Vacuolation PRESENT Dohle Bodies PRESENT Platelet Estimate LOW Platelet Morphology Comment ENLARGED Tear Drop Cells 1+ Ovalocytes 1+ Culture Results Microbiology Date/Time Source Procedure Growth Status 08/27/17 01:52 Blood Other Aerobic Blood Culture - Preliminary NO GROWTH IN 2 DAYS Resulted 08/27/17 01:52 Blood Other Anaerobic Blood Culture - Preliminary NO GROWTH IN 2 DAYS Resulted 08/27/17 00:05 Blood Other Aerobic Blood Culture - Preliminary NO GROWTH IN 2 DAYS Resulted 08/27/17 00:05 Blood Other Anaerobic Blood Culture - Preliminary NO GROWTH IN 2 DAYS Resulted 08/28/17 07:17 Urine Clean Catch Urine Culture Pending Received Administered Medications Medications (Trade) Dose Ordered Sig/Amanda Route PRN Reason Start Time Stop Time Status Last Admin Dose Admin Sodium Chloride (NS Flush) 2 ml BID IV FLUSH 08/22/17 09:00 08/26/17 20:07 Cefepime HCl 2000 mg/Sodium Chloride 100 ml @ 200 mls/hr Q12H IV 08/22/17 08:00 08/29/17 08:44 Hydromorphone HCl (Dilaudid Pf Inj) 0.5 mg Q2H PRN IV PUSH BREAKTHROUGH PAIN 08/22/17 03:30 08/22/17 08:10 Enoxaparin Sodium (Lovenox Inj) 40 mg Q24H SQ 08/22/17 03:30 Future Hold 08/23/17 04:11 Fentanyl (Duragesic 25 Mcg Patch.72 Hr) 1 patch Q3D T-DERMAL 08/22/17 11:00 08/28/17 10:59 Miscellaneous Information 1 Q3D T-DERMAL 08/25/17 11:00 08/25/17 11:00 Sodium Chloride 1,000 ml @ 100 mls/hr Q10H IV 08/22/17 15:00 08/29/17 04:22 Acetaminophen (Tylenol) 650 mg Q6HR PRN PO temp > 100.4 08/22/17 19:45 08/26/17 23:47 Filgrastim 480 mcg/Dextrose 50 ml @ 100 mls/hr DAILY@14 IV 08/24/17 14:00 08/29/17 22:00 08/28/17 14:26 Oxycodone HCl (Roxicodone) 20 mg Q8H PRN PO PAIN SCALE 5 TO 10 08/25/17 10:30 08/28/17 23:05 Diphenhydramine HCl (Benadryl) 25 mg Q6H PRN PO ITCHING 08/25/17 10:15 08/26/17 11:55 Objective Remarks GENERAL: Older female, asleep in bed in no acute distress. Awakens easily to verbal stimuli SKIN: Warm and dry. HEAD: Normocephalic. EYES: No scleral icterus. No injection or drainage. NECK: Supple, trachea midline. No JVD or lymphadenopathy. CARDIOVASCULAR: Regular rate and rhythm without murmurs. RESPIRATORY: Clear posteriorly. Breathing unlabored. GASTROINTESTINAL: Soft but mildly tender to palpation. EXTREMITIES: No cyanosis, or edema. MUSCULOSKELETAL: Adequate muscle tone. NEUROLOGICAL: No obvious focal deficit. Awake, alert, and oriented x3. Assessment/Plan Problem List: (1) Abdominal pain, generalized ICD Codes: R10.84 - Generalized abdominal pain Plan: --currently on Fentanyl TD 25mcg + Roxicodone 30mg PO q 8 --has a increased abdominal pain likely due to metastatic disease. CT ab/ pelvis on 08/22 showed hepatomegaly with findings suggesting diffuse inhomogeneity and possible ill-defined low density lesions. + Bilateral basilar lung subcentimeter nodular density consistent with metastatic disease. (2) Metastatic carcinoma involving liver with unknown primary site ICD Codes: C78.7 - Secondary malignant neoplasm of liver and intrahepatic bile duct; C80.1 - Malignant (primary) neoplasm, unspecified Plan: --Metastatic poorly differentiated carcinoma, unknown primary. --has metastatic disease in the liver and bone. --first diagnosed in December of 2015. --Workup did not showed the primary tumor. --had been treated with various chemotherapy. --recently finished a course of topotecan but developed progression disease. --just started first cycle of doxorubicin the week prior to admission. too early to assess response at this time. (3) fever, possible sepsis, possible UTI Plan: --Urinalysis showed possible urinary tract infection. --BC no growth --UC, 08/28 pending --on Cefepime. (4) Pancytopenia due to antineoplastic chemotherapy ICD Codes: D61.810 - Antineoplastic chemotherapy induced pancytopenia; T45.1X5A - Adverse effect of antineoplastic and immunosuppressive drugs, initial encounter Plan: --started on Neupogen on 08/23. --transfuse pRBC and platelets as needed to keep hgb>7.5, platelets>10K Assessment 56y/o female with metastatic carcinoma of unknown primary, admitted with mental status change and febrile illness. 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 Hepatitis C-->treated with interferon in the past Anxiety. Osteoarthritis. Hypertension. Complete hysterectomy. Back surgery twice. Port placement. patient doing better and temperature down on antibiotics it will take additional 3-4 days to resolve. Plan 1. No longer neutropenic. Give one more dose of Neupogen and discontinue. 2. Stop neutropenic precautions 3. Await results of repeat urine culture and continue cefepime for now. 4. If counts continue to rise as they are expected, she will likely be able to go home in the next day or so. Attending Statement The exam, history, and the medical decision-making described in the above note were completed with the assistance of the mid-level provider. I reviewed and agree with the findings presented. I attest that I had a [id number] encounter with the patient on the same day, and personally performed and documented my assessment and findings in the medical record. Abdominal pain has improved. WBC trended up. Remains afebrile. Transfuse platelet today. Continue supportive care. Micaela Barth Aug 29, 2017 12:01 Franky Camarena MD Aug 29, 2017 16:26
--- NOTE | 2017-08-29 15:57 | HHI.PR ---
Subjective Remarks Pt currently feels cold, no pain at this time. No CP/SOB/N/V Objective Vitals Vital Signs Date Time Temp Pulse Resp B/P (MAP) Pulse Ox O2 Delivery O2 Flow Rate FiO2 08/29/17 12:10 98.7 75 18 119/59 100 08/29/17 12:00 78 08/29/17 11:28 99.0 80 18 122/64 100 08/29/17 08:32 97.4 88 18 130/66 (87) 99 08/29/17 08:32 99 Room Air 08/29/17 04:00 98.4 78 16 132/71 (91) 100 08/28/17 23:00 98.3 84 15 133/68 (89) 99 08/28/17 20:05 98.7 88 15 122/62 (82) 100 08/28/17 20:05 85 08/28/17 17:23 22 08/28/17 16:22 79 08/28/17 16:20 97.9 88 18 134/82 (99) 100 08/28/17 16:00 20 I/O 08/28/17 08/28/17 08/28/17 08/29/17 08/29/17 08/29/17 07:00 15:00 23:00 07:00 15:00 23:00 Intake Total 192 ml 2442 ml 1000 ml 331 ml Balance 192 ml 2442 ml 1000 ml 331 ml Intake Oral 1200 ml IV Total 1242 ml 1000 ml Platelets 192 ml 321 ml Blood Product IV Normal Saline Flush 10 ml # Voids 1 8 # Bowel Movements 3 Result Diagram: 08/29/17 0423 Imaging Last Impressions Chest X-Ray 08/23/17 0000 Signed Impressions: Service Date/Time: August 09:45 - CONCLUSION: 1. Stable linear bibasilar parenchymal opacities most consistent with atelectasis. Levon Sheehan MD Abdomen/Pelvis CT 08/22/17 0000 Signed Impressions: Service Date/Time: Tuesday, August 22, 2017 19:18 - CONCLUSION: Hepatomegaly with findings suggesting diffuse inhomogeneity and possible ill-defined low density lesions metastatic disease. Left kidney upper pole 3 mm calyceal stones with cortical thinning indicating remote inflammatory process. Bilateral basilar lung subcentimeter nodular density consistent with metastatic disease. Intra-abdominal contents reveal no evidence of free air or free fluid or abscess formation Julio César Gomez MD Head CT [id number]/[id number] Signed Impressions: Service Date/Time: Monday, August 21, 2017 21:53 - CONCLUSION: Unremarkable study. Irasema Araujo MD Abdomen X-Ray 08/21/17 0000 Signed Impressions: Service Date/Time: Monday, August 21, 2017 21:44 - CONCLUSION: Nonspecific abdomen. Irasema Araujo MD Objective Remarks GENERAL: Alert, NAD. HEAD: Normocephalic. EYES: No scleral icterus. No injection or drainage. NECK: Supple, trachea midline. No JVD or lymphadenopathy. CARDIOVASCULAR: Regular rate and rhythm without murmurs RESPIRATORY: Breath sounds equal bilaterally. No accessory muscle use. GASTROINTESTINAL: Abdomen soft, non-tender, nondistended. MUSCULOSKELETAL: No edema. Procedures None A/P Problem List: (1) Metastatic carcinoma involving liver with unknown primary site ICD Code: C78.7 - Secondary malignant neoplasm of liver and intrahepatic bile duct; C80.1 - Malignant (primary) neoplasm, unspecified (2) Metastatic carcinoma involving bone with unknown primary site ICD Code: C79.51 - Secondary malignant neoplasm of bone; C80.1 - Malignant ( primary) neoplasm, unspecified (3) Neutropenic fever ICD Code: D70.9 - Neutropenia, unspecified; R50.81 - Fever presenting with conditions classified elsewhere (4) thrombocytopenia due to chemotherapy (5) Pancytopenia due to antineoplastic chemotherapy ICD Code: D61.810 - Antineoplastic chemotherapy induced pancytopenia; T45.1X5A - Adverse effect of antineoplastic and immunosuppressive drugs, initial encounter Assessment and Plan Ms. 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 She has been through various chemotherapy in 2016 and recently developed progression of disease. She received doxorubicin in the last 1 week. Daughter at bedside states that patient did not tolerate last cycle of doxorubicin well. Patient does not wish to continue chemotherapy. - Metastatic poorly differentiated carcinoma of unknown primary - Metastasis to liver and bone - Oncology following. - Palliative care following. - Patient has received 4 units of PRBCs so far. - Anemia of chronic disease - Hgb on admission 5.9. Has received multiple transfusions. Hgb 7.9 today. Transfuse if Hgb < 7.0. - Pancytopenia due to antineoplastic drugs - Neutropenic fever - Patient's platelet count is 18K today. - on cefepime. on neupogen. Pt to receive one more dose today per oncology. - Will continue abx and supportive care - Suspected UTI - Continue cefepime. fu repeat urine cultures. DNR. SCDs. Lovenox on hold due to thrombocytopenia. palliative care following. Pt not ready to transition to hospice care. Discharge Plan: Once neutropenia and fever resolves, we could potentially discharge patient home. Neutrophil count is trending up 100 --> 300. Discharge Planning anticipate d/c in 1-2 days if afebrile and neutrophil count increasing and urine cx neg. Maria Eugenia Galindo MD Aug 29, 2017 15:57
[2017-08-29] MEDS: FILGRASTIM INJ 480 MCG in DEXTROSE 5% IN WATER INJ 48.4 ML IV SCH ×2 (16:55)
[2017-08-29] MEDS: SODIUM CHLORIDE 0.9% FLUSH 10 ML FLUSH IV FLUSH SCH ×2 (16:55→20:34)
[2017-08-29] MEDS ORDERED: ALPRAZolam 1 MG TAB PO ONE (23:00)
[2017-08-30] MEDS: SODIUM CHLOR 0.9% 1000 ML INJ 1,000 ML IV SCH ×2 (03:00→12:04)
[2017-08-30 04:28] VITALS: BP 126/66; PULSE 92; RESP 14; TEMP 98.6; O2SAT 100
[2017-08-30 05:08] LABS: HEMATOCRIT 24.7 % (35.0-46.0); MEAN CELL VOLUME 88.5 FL (80.0-100.0); MEAN CORPUSCULAR HEMOGLOBIN 29.2 PG (27.0-34.0); PLATELET COUNT 27 TH/MM3 (150-450); RED BLOOD COUNT 2.79 MIL/MM3 (4.00-5.30); RED CELL DISTRIBUTION WIDTH 18.8 % (11.6-17.2); WHITE BLOOD COUNT 6.2 TH/MM3 (4.0-11.0)
[2017-08-30 05:10] LABS: HEMO FLAGS AUTO DIFF
[2017-08-30 05:47] LABS: BICARBONATE 18.1 MEQ/L (21.0-32.0)
[2017-08-30 06:15] LABS: POTASSIUM 2.9 MEQ/L (3.5-5.1)
[2017-08-30] MEDS ORDERED: POTASSIUM CHLORIDE 25 MEQ EFFERVESCENT TAB PO SCH (06:45)
[2017-08-30 08:15] LABS: BANDS 17 % (0-6); CORRECTED NUCLEATED RBC 1 /100 WBC (0-0); NEUTROPHIL # MANUAL DIFF 4.7 TH/MM3 (1.8-7.7); POLYS (SEG NEUTROPHILS) 58 % (16-70); WBC DIFF SAMPLE 100
[2017-08-30 08:16] LABS: PLATELET ESTIMATE SMEAR LOW (NORMAL); PLATELET MORPHOLOGY NORMAL (NORMAL); SCAN/DIFF FINAL DIFF MANUAL
[2017-08-30 08:18] LABS: OVALOCYTES 1+ (NORMAL); TEARDROP RBCS 1+ (NORMAL)
[2017-08-30 08:25] VITALS: PULSE 83
[2017-08-30] MEDS: SODIUM CHLORIDE 0.9% FLUSH 10 ML FLUSH IV FLUSH SCH (09:00)
[2017-08-30 09:17] VITALS: BP 125/67; PULSE 79; RESP 16; TEMP 98.6; O2SAT 100
[2017-08-30] MEDS: CEFEPIME INJ 2,000 MG in SODIUM CHLORIDE 0.9% INJ 100 ML IV SCH (09:17)
--- NOTE | 2017-08-30 10:04 | PD.ONC.PN ---
Subjective Subjective Remarks Afebrile. Abdominal pain improved. Wants to go home Objective Data Date Time Temp Pulse Resp B/P (MAP) Pulse Ox O2 Delivery O2 Flow Rate FiO2 08/30/17 04:28 98.6 92 14 126/66 (86) 100 08/29/17 23:05 80 08/29/17 23:01 99.3 86 16 134/69 (90) 100 08/29/17 20:45 Room Air 08/29/17 20:45 99.3 78 17 130/69 (89) 100 08/29/17 16:46 98.9 84 16 139/70 (93) 100 08/29/17 12:10 98.7 75 18 119/59 100 08/29/17 12:00 78 08/29/17 11:28 99.0 80 18 122/64 100 08/30/17 08/30/17 08/30/17 07:00 15:00 23:00 Intake Total 1000 ml Output Total 300 ml Balance 700 ml Result Diagram: 08/30/17 0430 08/30/17 0430 Laboratory Results Laboratory Tests Test 08/30/17 04:30 White Blood Count 6.2 TH/MM3 Red Blood Count 2.79 MIL/MM3 Hemoglobin 8.2 GM/DL Hematocrit 24.7 % Mean Corpuscular Volume 88.5 FL Mean Corpuscular Hemoglobin 29.2 PG Mean Corpuscular Hemoglobin Concent 33.0 % Red Cell Distribution Width 18.8 % Platelet Count 27 TH/MM3 Mean Platelet Volume 9.6 FL CBC Comment AUTO DIFF Differential Total Cells Counted 100 Neutrophils % (Manual) 58 % Band Neutrophils % 17 % Lymphocytes % 18 % Monocytes % 7 % Neutrophils # (Manual) 4.7 TH/MM3 Nucleated Red Blood Cells 1 /100 WBC Differential Comment FINAL DIFF MANUAL Platelet Estimate LOW Platelet Morphology Comment NORMAL Tear Drop Cells 1+ Ovalocytes 1+ Blood Urea Nitrogen 2 MG/DL Creatinine 0.52 MG/DL Random Glucose 82 MG/DL Calcium Level 8.0 MG/DL Sodium Level 138 MEQ/L Potassium Level 2.9 MEQ/L Chloride Level 110 MEQ/L Carbon Dioxide Level 18.1 MEQ/L Anion Gap 10 MEQ/L Estimat Glomerular Filtration Rate 147 ML/MIN Culture Results Microbiology Date/Time Source Procedure Growth Status 08/28/17 07:17 Urine Clean Catch Urine Culture - Preliminary NO GROWTH IN 24 HOURS. Resulted Administered Medications Medications (Trade) Dose Ordered Sig/Amanda Route PRN Reason Start Time Stop Time Status Last Admin Dose Admin Sodium Chloride (NS Flush) 2 ml BID IV FLUSH 08/22/17 09:00 08/29/17 20:34 Cefepime HCl 2000 mg/Sodium Chloride 100 ml @ 200 mls/hr Q12H IV 08/22/17 08:00 08/30/17 09:17 Hydromorphone HCl (Dilaudid Pf Inj) 0.5 mg Q2H PRN IV PUSH BREAKTHROUGH PAIN 08/22/17 03:30 08/22/17 08:10 Enoxaparin Sodium (Lovenox Inj) 40 mg Q24H SQ 08/22/17 03:30 Future Hold 08/23/17 04:11 Fentanyl (Duragesic 25 Mcg Patch.72 Hr) 1 patch Q3D T-DERMAL 08/22/17 11:00 08/28/17 10:59 Miscellaneous Information 1 Q3D T-DERMAL 08/25/17 11:00 08/25/17 11:00 Sodium Chloride 1,000 ml @ 100 mls/hr Q10H IV 08/22/17 15:00 08/30/17 03:00 Acetaminophen (Tylenol) 650 mg Q6HR PRN PO temp > 100.4 08/22/17 19:45 08/26/17 23:47 Oxycodone HCl (Roxicodone) 20 mg Q8H PRN PO PAIN SCALE 5 TO 10 08/25/17 10:30 08/29/17 20:34 Diphenhydramine HCl (Benadryl) 25 mg Q6H PRN PO ITCHING 08/25/17 10:15 08/26/17 11:55 Objective Remarks GENERAL: Older female, resting in bed in no acute distress. SKIN: Warm and dry. HEAD: Normocephalic. EYES: No scleral icterus. No injection or drainage. NECK: Supple, trachea midline. No JVD or lymphadenopathy. CARDIOVASCULAR: Regular rate and rhythm without murmurs. RESPIRATORY: Clear posteriorly. Breathing unlabored. GASTROINTESTINAL: Soft. Nontender to palpation. EXTREMITIES: No cyanosis, or edema. MUSCULOSKELETAL: Adequate muscle tone. NEUROLOGICAL: No obvious focal deficit. Awake, alert, and oriented x3. Assessment/Plan Problem List: (1) Abdominal pain, generalized ICD Codes: R10.84 - Generalized abdominal pain Plan: --currently on Fentanyl TD 25mcg + Roxicodone 30mg PO q 8 --has a increased abdominal pain likely due to metastatic disease. CT ab/ pelvis on 08/22 showed hepatomegaly with findings suggesting diffuse inhomogeneity and possible ill-defined low density lesions. + Bilateral basilar lung subcentimeter nodular density consistent with metastatic disease. (2) Metastatic carcinoma involving liver with unknown primary site ICD Codes: C78.7 - Secondary malignant neoplasm of liver and intrahepatic bile duct; C80.1 - Malignant (primary) neoplasm, unspecified Plan: --Metastatic poorly differentiated carcinoma, unknown primary. --has metastatic disease in the liver and bone. --first diagnosed in December of 2015. --Workup did not showed the primary tumor. --had been treated with various chemotherapy. --recently finished a course of topotecan but developed progression disease. --just started first cycle of doxorubicin the week prior to admission. too early to assess response at this time. (3) fever, possible sepsis, possible UTI Plan: --Urinalysis showed possible urinary tract infection. --BC no growth --UC, 08/28 no growth --on Cefepime. (4) Pancytopenia due to antineoplastic chemotherapy ICD Codes: D61.810 - Antineoplastic chemotherapy induced pancytopenia; T45.1X5A - Adverse effect of antineoplastic and immunosuppressive drugs, initial encounter Plan: --transfuse pRBC and platelets as needed to keep hgb>7.5, platelets>15K Assessment 56y/o female with metastatic carcinoma of unknown primary, admitted with mental status change and febrile illness. 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 Hepatitis C-->treated with interferon in the past Anxiety. Osteoarthritis. Hypertension. Complete hysterectomy. Back surgery twice. Port placement. patient doing better and temperature down on antibiotics it will take additional 3-4 days to resolve. Plan 1. Pt doing much better in terms of her cytopenias. No longer neutropenic. 2. OK for discharge from hem/onc standpoint. 3. Followup in clinic next week. Attending Statement The exam, history, and the medical decision-making described in the above note were completed with the assistance of the mid-level provider. I reviewed and agree with the findings presented. I attest that I had a [id number] encounter with the patient on the same day, and personally performed and documented my assessment and findings in the medical record. Abdominal pain continue to improve. Remains afebrile. Neutropenia resolved. Can be d/c from oncology standpoint and f/u oncology clinic. Micaela Barth Aug 30, 2017 10:04 Franky Camarena MD Aug 30, 2017 15:23
[2017-08-30] MEDS ORDERED: POTASSIUM CHLOR 10 MEQ PREMIX 100 ML IV SCH (11:00)
--- NOTE | 2017-08-30 11:42 | HHI.PR ---
Subjective Remarks Pt feeling better. looking forward to going home. denies any pain at this time Objective Vitals Vital Signs Date Time Temp Pulse Resp B/P (MAP) Pulse Ox O2 Delivery O2 Flow Rate FiO2 08/30/17 09:17 Room Air 08/30/17 04:28 98.6 92 14 126/66 (86) 100 08/29/17 23:05 80 08/29/17 23:01 99.3 86 16 134/69 (90) 100 08/29/17 20:45 Room Air 08/29/17 20:45 99.3 78 17 130/69 (89) 100 08/29/17 16:46 98.9 84 16 139/70 (93) 100 08/29/17 12:10 98.7 75 18 119/59 100 08/29/17 12:00 78 I/O 08/29/17 08/29/17 08/29/17 08/30/17 08/30/17 08/30/17 07:00 15:00 23:00 07:00 15:00 23:00 Intake Total 1000 ml 331 ml 100 ml 1000 ml Output Total 300 ml Balance 1000 ml 331 ml 100 ml 700 ml IV Total 1000 ml 100 ml 1000 ml Platelets 321 ml Blood Product IV Normal Saline Flush 10 ml Output Urine Total 300 ml Result Diagram: 08/30/17 0430 08/30/17 0430 Imaging Last Impressions Chest X-Ray 08/23/17 0000 Signed Impressions: Service Date/Time: August 09:45 - CONCLUSION: 1. Stable linear bibasilar parenchymal opacities most consistent with atelectasis. Levon Sheehan MD Abdomen/Pelvis CT 08/22/17 0000 Signed Impressions: Service Date/Time: Tuesday, August 22, 2017 19:18 - CONCLUSION: Hepatomegaly with findings suggesting diffuse inhomogeneity and possible ill-defined low density lesions metastatic disease. Left kidney upper pole 3 mm calyceal stones with cortical thinning indicating remote inflammatory process. Bilateral basilar lung subcentimeter nodular density consistent with metastatic disease. Intra-abdominal contents reveal no evidence of free air or free fluid or abscess formation Julio César Gomez MD Head CT [id number]/21/[id number] Signed Impressions: Service Date/Time: Monday, August 21, 2017 21:53 - CONCLUSION: Unremarkable study. Irasema Araujo MD Abdomen X-Ray 08/21/17 0000 Signed Impressions: Service Date/Time: Monday, August 21, 2017 21:44 - CONCLUSION: Nonspecific abdomen. Irasema Araujo MD Objective Remarks GENERAL: Alert, NAD. HEAD: Normocephalic. EYES: No scleral icterus. No injection or drainage. NECK: Supple, trachea midline. No JVD or lymphadenopathy. CARDIOVASCULAR: Regular rate and rhythm without murmurs RESPIRATORY: Breath sounds equal bilaterally. No accessory muscle use. GASTROINTESTINAL: Abdomen soft, non-tender, nondistended. MUSCULOSKELETAL: No edema. Procedures None A/P Problem List: (1) Metastatic carcinoma involving liver with unknown primary site ICD Code: C78.7 - Secondary malignant neoplasm of liver and intrahepatic bile duct; C80.1 - Malignant (primary) neoplasm, unspecified (2) Metastatic carcinoma involving bone with unknown primary site ICD Code: C79.51 - Secondary malignant neoplasm of bone; C80.1 - Malignant ( primary) neoplasm, unspecified (3) Neutropenic fever ICD Code: D70.9 - Neutropenia, unspecified; R50.81 - Fever presenting with conditions classified elsewhere (4) thrombocytopenia due to chemotherapy (5) Pancytopenia due to antineoplastic chemotherapy ICD Code: D61.810 - Antineoplastic chemotherapy induced pancytopenia; T45.1X5A - Adverse effect of antineoplastic and immunosuppressive drugs, initial encounter Assessment and Plan Ms. 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 She has been through various chemotherapy in 2016 and recently developed progression of disease. She received doxorubicin in the last 1 week. Patient does not wish to continue chemotherapy. - Metastatic poorly differentiated carcinoma of unknown primary - Metastasis to liver and bone - Oncology following. - Palliative care following. - Patient has received 4 units of PRBCs so far. - Anemia of chronic disease - Hgb on admission 5.9. Has received multiple transfusions. Hgb 8.2 today. Transfuse if Hgb < 7.0. - Pancytopenia due to antineoplastic drugs - Neutropenic fever - Pt has been afebrile x >72 hours - Patient's platelet count is 27K today. - on cefepime. been on neupogen. Discussed w onc team and pt can be discharged from their standpoint. no need to continue w IV abx. Pt to f/u w them in their office and if pt spikes a fever as an outpatient to call them right away. - Suspected UTI - on cefepime. urine cx neg x 48 hours. hypokalemia: 2.9. replete now and repeat K levels around noon DNR. SCDs. Lovenox on hold due to thrombocytopenia. palliative care following. Pt not ready to transition to hospice care. Discharge Planning anticipate d/c today once K replaced and lab repeated Maria Eugenia Galindo MD Aug 30, 2017 11:42
--- NOTE | 2017-08-30 11:43 | HHI.DS ---
Discharge Summary Admission Date Aug 22, 2017 at 00:15 Discharge Date: Aug 30, 2017 Admitting Diagnosis FEVER ON CHEMO/UNKNOWN SOURCE/AMS (1) Metastatic carcinoma involving liver with unknown primary site ICD Code: C78.7 - Secondary malignant neoplasm of liver and intrahepatic bile duct; C80.1 - Malignant (primary) neoplasm, unspecified (2) Metastatic carcinoma involving bone with unknown primary site ICD Code: C79.51 - Secondary malignant neoplasm of bone; C80.1 - Malignant ( primary) neoplasm, unspecified (3) Neutropenic fever ICD Code: D70.9 - Neutropenia, unspecified; R50.81 - Fever presenting with conditions classified elsewhere (4) thrombocytopenia due to chemotherapy (5) Pancytopenia due to antineoplastic chemotherapy ICD Code: D61.810 - Antineoplastic chemotherapy induced pancytopenia; T45.1X5A - Adverse effect of antineoplastic and immunosuppressive drugs, initial encounter Procedures None Brief History - From Admission Written by Karime Quintanilla, acting as scribe for Dr. Lewis on 08/22/17 at 03:30. The patient states that she came to hospital due to severe stomach pains. She states this pain has gotten progressively worsened despite pain medication adjustments by her oncologist Dr. Camarena on August 15, 2017. The patient also endorses that her family was concerned about her being a little confused. She reports that she fell at home yesterday. She denies hitting her head when she fell. Denies syncope. She states that she lost balance when she stood to get out of bed. She reports fevers but is unsure how long she's been having fevers. She denies cough, dysuria, nausea, vomiting, or diarrhea that she can recall. CBC/BMP: 08/30/17 0430 08/30/17 0430 Significant Findings Laboratory Tests Test 08/28/17 04:19 08/28/17 07:17 08/29/17 04:23 08/30/17 04:30 White Blood Count 1.0 TH/MM3 (4.0-11.0) 3.0 TH/MM3 (4.0-11.0) Red Blood Count 2.69 MIL/MM3 (4.00-5.30) 2.72 MIL/MM3 (4.00-5.30) 2.79 MIL/MM3 (4.00-5.30) Hemoglobin 7.9 GM/DL (11.6-15.3) 8.2 GM/DL (11.6-15.3) 8.2 GM/DL (11.6-15.3) Hematocrit 24.1 % (35.0-46.0) 24.2 % (35.0-46.0) 24.7 % (35.0-46.0) Red Cell Distribution Width 18.6 % (11.6-17.2) 19.0 % (11.6-17.2) 18.8 % (11.6-17.2) Platelet Count 19 TH/MM3 (150-450) 18 TH/MM3 (150-450) 27 TH/MM3 (150-450) Neutrophils % (Manual) 14 % (16-70) Band Neutrophils % 16 % (0-6) 12 % (0-6) 17 % (0-6) Monocytes % 26 % (0-8) 15 % (0-8) Neutrophils # (Manual) 0.3 TH/MM3 (1.8-7.7) Platelet Estimate LOW (NORMAL) LOW (NORMAL) LOW (NORMAL) Urine Turbidity HAZY (CLEAR) Urine Protein 30 mg/dL (NEG-TRACE) Urine Ketones TRACE mg/dL (NEG) Urine Occult Blood TRACE (NEG) Urine Leukocyte Esterase MOD (NEG) Urine RBC 15 /hpf (0-3) Urine WBC 44 /hpf (0-5) Urine Bacteria FEW /hpf (NONE) Urine Mucus MANY /lpf (OCC) Metamyelocytes 6 % (0-1) Toxic Granulation 2+ (NORMAL) Toxic Vacuolation PRESENT (NONE SEEN) Dohle Bodies PRESENT (NONE SEEN) Platelet Morphology Comment ENLARGED (NORMAL) Tear Drop Cells 1+ (NORMAL) 1+ (NORMAL) Ovalocytes 1+ (NORMAL) 1+ (NORMAL) Nucleated Red Blood Cells 1 /100 WBC (0-0) Blood Urea Nitrogen 2 MG/DL (7-18) Calcium Level 8.0 MG/DL (8.5-10.1) Potassium Level 2.9 MEQ/L (3.5-5.1) Chloride Level 110 MEQ/L (98-107) Carbon Dioxide Level 18.1 MEQ/L (21.0-32.0) Imaging Last Impressions Chest X-Ray 08/23/17 0000 Signed Impressions: Service Date/Time: August 09:45 - CONCLUSION: 1. Stable linear bibasilar parenchymal opacities most consistent with atelectasis. Levon Sheehan MD Abdomen/Pelvis CT 08/22/17 0000 Signed Impressions: Service Date/Time: Tuesday, August 22, 2017 19:18 - CONCLUSION: Hepatomegaly with findings suggesting diffuse inhomogeneity and possible ill-defined low density lesions metastatic disease. Left kidney upper pole 3 mm calyceal stones with cortical thinning indicating remote inflammatory process. Bilateral basilar lung subcentimeter nodular density consistent with metastatic disease. Intra-abdominal contents reveal no evidence of free air or free fluid or abscess formation Julio César Gomez MD Head CT [id number]/21/[id number] Signed Impressions: Service Date/Time: Monday, August 21, 2017 21:53 - CONCLUSION: Unremarkable study. Irasema Araujo MD Abdomen X-Ray 08/21/17 0000 Signed Impressions: Service Date/Time: Monday, August 21, 2017 21:44 - CONCLUSION: Nonspecific abdomen. Irasema Araujo MD PE at Discharge GENERAL: Alert, NAD. HEAD: Normocephalic. EYES: No scleral icterus. No injection or drainage. NECK: Supple, trachea midline. No JVD or lymphadenopathy. CARDIOVASCULAR: Regular rate and rhythm without murmurs RESPIRATORY: Breath sounds equal bilaterally. No accessory muscle use. GASTROINTESTINAL: Abdomen soft, non-tender, nondistended. MUSCULOSKELETAL: No edema. Hospital Course Ms. 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 She has been through various chemotherapy in 2016 and recently developed progression of disease. She received doxorubicin in the last 1 week. Patient does not wish to continue chemotherapy. - Metastasis to liver and bone - Oncology and palliative care evaluated the pt. She is s/p 4 units PRBC. Hb stable at 8.2. She presented w Pancytopenia due to antineoplastic drugs. Patient 's platelet count is 27K today. - Neutropenic fever - Pt has been afebrile x >72 hours - received cefepime. was on neupogen. Discussed w onc team and pt can be discharged from their standpoint. no need to continue w IV abx as all blood cx and urine cx neg (including repeat cultures). Pt to f/u w them in their office and if pt spikes a fever as an outpatient to call them right away. hypokalemia: 2.9. k repleted. up to 3.3 and magnesium 1.4 on repeat lab.will give one time dose of KCL po w 1g Magnesium sulfate prior to discharge. Pt wishes to be DNR. However, Pt not ready to transition to hospice care. Pt Condition on Discharge: Stable Discharge Disposition: Discharge Home Discharge Time: > 30 minutes Discharge Instructions Follow up Referrals: Oncology/Hematology - 1 Week PCP Follow-up - 1 Week Continued Medications: Alprazolam (Alprazolam) 1 Mg Tab 1 MG PO BID PRN for ANXIETY, TAB 0 Refills Escitalopram (Lexapro) 10 Mg Tab 10 MG PO DAILY, #30 TAB 0 Refills Fentanyl Patch 72 HR (Fentanyl Patch 72 HR) 50 Mcg/Hr Patch 50 MCG T-DERMAL Q72H for Pain Management, #10 PATCH 0 Refills Remove old patch when new one placed. Lidocaine-Prilocaine Topical (Lidopril Topical) 2.5-2.5 % Cream 1 APPLIC TOPICAL BID PRN for Numbs skin, #1 TUBE 0 Refills Oxycodone (Oxycodone) 30 Mg Tab 30 MG PO Q8H PRN for PAIN, TAB 0 Refills Pantoprazole (Pantoprazole) 40 Mg Tab 40 MG PO DAILY for Reflux, #30 TAB 0 Refills Maria Eugenia Galindo MD Aug 30, 2017 11:42
[2017-08-30] MEDS: POTASSIUM CHLOR 10 MEQ PREMIX 100 ML IV SCH ×2 (12:05→13:17)
[2017-08-30 12:46] VITALS: BP 136/69; PULSE 82; RESP 16; TEMP 98.8; O2SAT 100
[2017-08-30 15:28] LABS: BICARBONATE 19.4 MEQ/L (21.0-32.0); MAGNESIUM 1.4 MG/DL (1.5-2.5); POTASSIUM 3.3 MEQ/L (3.5-5.1)
[2017-08-30] MEDS ORDERED: MAGNESIUM SULFATE 1 GM PREMIX 100 ML IV ONE (16:00)
[2017-08-30] MEDS ORDERED: POTASSIUM CHLORIDE 20 MEQ CONTROLLED RELEASE TAB PO ONE (16:00)
[2017-08-30 16:55] VITALS: BP 121/60; PULSE 83; RESP 16; TEMP 98.8; O2SAT 100
== END 2017-08-30 18:45 | disposition home or self-care (01) | DRG 809 ==
LOC: NEPC 19:51 → OBSVTOIN 08-22 00:15 → NEDA 08-22 00:15 → HCIS 08-22 01:45
PROVIDERS: ADMIT Hospitalist; ATTEND Hospitalist
PROC: 30233N1 Transfusion of Nonautologous Red Blood Cells into Peripheral Vein, Percutaneous Approach (ICD-10-PCS; principal; 2017-08-22)
PROC: 30233R1 Transfusion of Nonautologous Platelets into Peripheral Vein, Percutaneous Approach (ICD-10-PCS; 2017-08-24)
DX: D70.9 Neutropenia, unspecified (principal); C78.7 Secondary malignant neoplasm of liver and intrahepatic bile duct; C79.51 Secondary malignant neoplasm of bone; E87.2 Acidosis; D69.59 Other secondary thrombocytopenia; N39.0 Urinary tract infection, site not specified; G89.3 Neoplasm related pain (acute) (chronic); M54.9 Dorsalgia, unspecified; C80.1 Malignant (primary) neoplasm, unspecified; D64.81 Anemia due to antineoplastic chemotherapy; D63.8 Anemia in other chronic diseases classified elsewhere; M19.90 Unspecified osteoarthritis, unspecified site; Z66 Do not resuscitate; F41.9 Anxiety disorder, unspecified; I10 Essential (primary) hypertension; T45.1X5A Adverse effect of antineoplastic and immunosuppressive drugs, initial encounter; E78.00 Pure hypercholesterolemia, unspecified; E87.6 Hypokalemia; R50.81 Fever presenting with conditions classified elsewhere; Z91.81 History of falling; Z86.19 Personal history of other infectious and parasitic diseases; Z87.891 Personal history of nicotine dependence
CPT/HCPCS: 36430; 70450; 71010; 74020; 74176; 80048; 80053; 81001; 83605; 83735; 85007; 85014; 85018; 85025; 85027; 86850; 86900; 86901; 86920; 87040; 87086; 96361; 96365; J1170; J0692; J1442; J1650; J3475; J3480; J7030; J7050; P9016; P9035

== ENCOUNTER 2017-09-08 14:22 | Emergency (ER) | payer OTHER ==
[~2017-09-08] VITALS: Ht 162.6 cm; Wt 100.0 kg
[~2017-09-08 14:22] MED LIST changes: +ALPR1TAB3 PO; -DICL-86 PO; +FENT50DI T-DERMAL; -HYDR10TA16 PO; +LEXA10TA PO; +LIDO1CRE31 TOPICAL; -LISI10TA PO; -METH500T3 PO; +OXYC30TA PO; +PANT40TA3 PO; -XANA1TAB6 PO
[2017-09-08 14:27] VITALS: BP 139/74; PULSE 99; RESP 15; TEMP 98.9
[2017-09-08 15:30] VITALS: BP 156/76; PULSE 76; RESP 16; O2SAT 99
[2017-09-08] MEDS ORDERED: SODIUM CHLOR 0.9% 1000 ML INJ 1,000 ML IV SCH (16:19)
--- NOTE | 2017-09-08 16:26 | PD ---
HPI Chief Complaint: Abdominal Pain Time Seen by Provider: 15:59 Travel History International Travel<30 days: No Contact w/Intl Traveler<30days: No Traveled to known affect area: No History of Present Illness HPI The patient was seen and examined in the presence of the nurse. This patient has history of metastatic cancer to liver and lung and bone. He complains of general malaise and feels nauseous and bloated. She denies vomiting or constipation. She had a normal bowel movement yesterday. She denies fever. She is concerned about dehydration. She has decreased appetite and has not been drinking much. Symptoms severity is moderate. Duration 4 days. No alleviating factors. Symptoms exacerbated by metastatic cancer PFSH Past Medical History Arthritis: Yes Anxiety: Yes Cancer: Yes (LIVER AND BONE METASTASIS, UNKN PRIMARY) Cardiovascular Problems: Yes High Cholesterol: Yes Chemotherapy: Yes Diabetes: No Diminished Hearing: No Genitourinary: Yes (UTI on admission 08/22/10) Hepatitis: Yes Hypertension: Yes Immune Disorder: No Neurologic: No (Mild confusion on admission 08/22/17) Reproductive: No Respiratory: No Radiation Therapy: Yes (STATES 9 TREATMENTS TO BACK) Sickle Cell Disease: No : 2 Para: 2 Past Surgical History Gynecologic Surgery: Yes (Hysterectomy 2006) Hysterectomy: Yes (TOTAL) Social History Alcohol Use: Yes (OCCASIONALLY BEER AND ALCOHOL) Tobacco Use: Yes Substance Use: No Allergies-Medications (Allergen,Severity, Reaction): Coded Allergies: Iodinated Contrast- Oral and IV Dye (Verified Allergy, Unknown, 09/08/17) Reported Meds & Prescriptions Reported Meds & Active Scripts Active Reported Lidopril Topical (Lidocaine-Prilocaine Topical) 2.5-2.5 % Cream 1 Applic TOPICAL BID PRN Fentanyl Patch 72 HR (Fentanyl) 50 Mcg/Hr Patch 50 Mcg T-DERMAL Q72H Remove old patch when new one placed. Oxycodone (Oxycodone HCl) 30 Mg Tab 30 Mg PO Q8H PRN Alprazolam 1 Mg Tab 1 Mg PO BID PRN Lexapro (Escitalopram Oxalate) 10 Mg Tab 10 Mg PO DAILY Pantoprazole (Pantoprazole Sodium) 40 Mg Tab 40 Mg PO DAILY Review of Systems General / Constitutional: No: Fever Eyes: No: Visual changes HENT: No: Headaches Cardiovascular: No: Chest Pain or Discomfort Respiratory: No: Shortness of Breath Gastrointestinal: Positive: Nausea, Abdominal Pain, Loss of Appetite Genitourinary: No: Dysuria Musculoskeletal: No: Pain Skin: No Rash Neurologic: No: Weakness Psychiatric: No: Depression Endocrine: No: Polydipsia Hematologic/Lymphatic: No: Easy Bruising Physical Exam Narrative GENERAL: Well-nourished, well-developed patient in no apparent distress. SKIN: Focused skin assessment reveals no rash and nodules. Skin is Warm and dry. HEAD: Atraumatic. Normocephalic. EYES: Pupils equal and round. No scleral icterus. No injection or drainage. ENT: No nasal bleeding or discharge. Mucous membranes pink and moist. NECK: Trachea midline. No JVD. CARDIOVASCULAR: Regular rate and rhythm. No murmur appreciated. RESPIRATORY: No accessory muscle use. Clear to auscultation. Breath sounds equal bilaterally. GASTROINTESTINAL: Abdomen soft, non-tender, nondistended. Hepatic and splenic margins not palpable. MUSCULOSKELETAL: No obvious deformities. No clubbing. No cyanosis. No edema. NEUROLOGICAL: Awake and alert. No obvious cranial nerve deficits. Motor grossly within normal limits. Normal speech. PSYCHIATRIC: Appropriate mood and affect; insight and judgment normal. Data Data Last Documented VS Vital Signs Date Time Temp Pulse Resp B/P (MAP) Pulse Ox O2 Delivery O2 Flow Rate FiO2 09/08/17 18:30 76 16 166/79 (108) 98 Room Air 09/08/17 14:27 98.9 Orders Orders Basic Metabolic Panel (Bmp) (09/08/17 16:19) Complete Blood Count With Diff (09/08/17 16:19) Ondansetron Inj (Zofran Inj) (09/08/17 16:30) Sodium Chlor 0.9% 1000 Ml Inj (Ns 1000 M (09/08/17 16:19) Hydromorphone Pf Inj (Dilaudid Pf Inj) (09/08/17 17:30) Potassium Bicarb Eff (Effer-K Eff) (09/08/17 19:00) Labs Laboratory Tests Test 09/08/17 16:30 White Blood Count 16.4 TH/MM3 Red Blood Count 3.23 MIL/MM3 Hemoglobin 9.5 GM/DL Hematocrit 29.3 % Mean Corpuscular Volume 90.8 FL Mean Corpuscular Hemoglobin 29.4 PG Mean Corpuscular Hemoglobin Concent 32.3 % Red Cell Distribution Width 21.5 % Platelet Count 151 TH/MM3 Mean Platelet Volume 9.5 FL Neutrophils (%) (Auto) 77.4 % Lymphocytes (%) (Auto) 6.7 % Monocytes (%) (Auto) 15.5 % Eosinophils (%) (Auto) 0.1 % Basophils (%) (Auto) 0.3 % Neutrophils # (Auto) 12.7 TH/MM3 Lymphocytes # (Auto) 1.1 TH/MM3 Monocytes # (Auto) 2.5 TH/MM3 Eosinophils # (Auto) 0.0 TH/MM3 Basophils # (Auto) 0.0 TH/MM3 CBC Comment AUTO DIFF Differential Total Cells Counted 100 Neutrophils % (Manual) 81 % Band Neutrophils % 16 % Monocytes % 3 % Neutrophils # (Manual) 15.9 TH/MM3 Differential Comment FINAL DIFF MANUAL Platelet Estimate NORMAL Platelet Morphology Comment NORMAL Tear Drop Cells 1+ Ovalocytes 1+ Blood Urea Nitrogen 3 MG/DL Creatinine 0.51 MG/DL Random Glucose 98 MG/DL Calcium Level 7.9 MG/DL Sodium Level 139 MEQ/L Potassium Level 2.9 MEQ/L Chloride Level 105 MEQ/L Carbon Dioxide Level 25.9 MEQ/L Anion Gap 8 MEQ/L Estimat Glomerular Filtration Rate 150 ML/MIN MDM Medical Decision Making Medical Screen Exam Complete: Yes Emergency Medical Condition: Yes Medical Record Reviewed: Yes Differential Diagnosis Ileus, colitis, dehydration Narrative Course I have reviewed the patient's electronic medical record. Reviewed her discharge summary from just a few days ago. She had CT of abdomen and pelvis 2 weeks ago Her port is accessed I gave her IV Zofran and 1 L normal saline IV CBC is noted Metabolic profile shows hypokalemia of 2.9 I replaced orally and a one-time replacement prescription Stable for outpatient follow-up with her oncologist I gave her an injection of Dilaudid for symptom relief and she feels improved Diagnosis Primary Impression: Abdominal pain, generalized Additional Impressions: Hypokalemia Metastatic carcinoma involving liver with unknown primary site Additional Instructions: The patient was advised to follow up with their physician and return if they worsen. Med/Other Pt SpecificInfo: Prescription(s) given Disposition: DISCHARGE HOME Condition: Stable Jesse Chacon MD Sep 08, 2017 16:26
[2017-09-08] MEDS ORDERED: ONDANSETRON HCL 4 MG/2 ML VIAL IVP ONE (16:30)
[2017-09-08 17:08] LABS: AUTOMATED NEUTROPHIL # 12.7 TH/MM3 (1.8-7.7); BASOPHIL % 0.3 % (0.0-2.0); EOSINOPHIL % 0.1 % (0.0-4.0); HEMATOCRIT 29.3 % (35.0-46.0); LYMPH % 6.7 % (9.0-44.0); LYMPHOCYTE # 1.1 TH/MM3 (1.0-4.8); MEAN CELL VOLUME 90.8 FL (80.0-100.0); MEAN CORPUSCULAR HEMOGLOBIN 29.4 PG (27.0-34.0); MEAN CORPUSCULAR HGB CONC 32.3 % (32.0-36.0); MONO % 15.5 % (0.0-8.0); NEUT % 77.4 % (16.0-70.0); PLATELET COUNT 151 TH/MM3 (150-450); RED BLOOD COUNT 3.23 MIL/MM3 (4.00-5.30); RED CELL DISTRIBUTION WIDTH 21.5 % (11.6-17.2); WHITE BLOOD COUNT 16.4 TH/MM3 (4.0-11.0)
[2017-09-08 17:09] LABS: HEMO FLAGS AUTO DIFF
[2017-09-08] MEDS ORDERED: HYDROmorphone HCL PF 1 MG/ML VIAL IVS ONE (17:30)
[2017-09-08 17:34] LABS: BICARBONATE 25.9 MEQ/L (21.0-32.0)
[2017-09-08 17:41] LABS: POTASSIUM 2.9 MEQ/L (3.5-5.1)
[2017-09-08 17:43] LABS: BANDS 16 % (0-6); NEUTROPHIL # MANUAL DIFF 15.9 TH/MM3 (1.8-7.7); OVALOCYTES 1+ (NORMAL); PLATELET ESTIMATE SMEAR NORMAL (NORMAL); PLATELET MORPHOLOGY NORMAL (NORMAL); POLYS (SEG NEUTROPHILS) 81 % (16-70); SCAN/DIFF FINAL DIFF MANUAL; TEARDROP RBCS 1+ (NORMAL); WBC DIFF SAMPLE 100
[2017-09-08 18:30] VITALS: BP 166/79; PULSE 76; RESP 16; O2SAT 98
[2017-09-08] MEDS ORDERED: KLORCONEF PO (18:53)
[2017-09-08] MEDS ORDERED: POTASSIUM BICARBONATE 25 MEQ EFFERVESCENT TAB PO ONE (19:00)
== END 2017-09-08 19:12 | disposition home or self-care (01) ==
LOC: NEPE 14:22
DX: R10.84 Generalized abdominal pain (principal); E87.6 Hypokalemia; G89.3 Neoplasm related pain (acute) (chronic); C80.1 Malignant (primary) neoplasm, unspecified; C78.7 Secondary malignant neoplasm of liver and intrahepatic bile duct; C79.51 Secondary malignant neoplasm of bone; I10 Essential (primary) hypertension; Z72.0 Tobacco use
CPT/HCPCS: 80048; 85007; 85027; 96361; 96374; 96375; 99284; J1170; J1642; J2405; J7030

== ENCOUNTER 2017-09-21 20:13 | Inpatient (IN) | payer OTHER, MEDICARE ==
[~2017-09-21] VITALS: Ht 165.1 cm; Wt 95.2 kg
[~2017-09-21 20:13] MED LIST changes: +KLORCONEF PO
[2017-09-21 20:15] VITALS: BP 114/59; PULSE 128; RESP 16; TEMP 99; O2SAT 95
[2017-09-21 20:22] VITALS: PULSE 129
[2017-09-21] MEDS ORDERED: SODIUM CHLORIDE 0.9% FLUSH 5 ML FLUSH IV FLUSH PRN (20:30)
--- NOTE | 2017-09-21 20:33 | PD ---
HPI Chief Complaint: Altered Mental Status Time Seen by Provider: 20:29 Travel History International Travel<30 days: No Contact w/Intl Traveler<30days: No Traveled to known affect area: No History of Present Illness HPI 56-year-old female patient with history of cancer found in the liver, currently on chemotherapy with Dr. Patton, presents to the ER today brought in by her daughter because she has been more confused over last 2 days. Daughter has not noticed any other issues although mom has been complaining of ongoing problems with abdominal pains which appears to be chronic for her. She has not noted any fevers, vomiting, or other symptoms. Patient apparently was here last month for UTI and altered mental status. Modifying Factors: None Associated Signs & Symptoms: Altered mental status Risk Factors: Cancer found in the liver, on chemotherapy PFSH Past Medical History Arthritis: Yes Anxiety: Yes Cancer: Yes (LIVER AND BONE METASTASIS, UNKN PRIMARY) Cardiovascular Problems: Yes High Cholesterol: Yes Chemotherapy: Yes Diabetes: No Diminished Hearing: No Genitourinary: Yes (UTI on admission 08/22/10) Hepatitis: Yes Heparin Induced Thrombocytopen: No Hypertension: Yes Immune Disorder: No Implanted Vascular Access Dvce: Yes Reproductive: No Respiratory: No Radiation Therapy: Yes (STATES 9 TREATMENTS TO BACK) Sickle Cell Disease: No Tetanus Vaccination: Unknown ?: Not : 2 Para: 2 Past Surgical History Gynecologic Surgery: Yes (Hysterectomy 2006) Hysterectomy: Yes (TOTAL) Family History Family Myocardial Infarction: Yes Social History Alcohol Use: Yes (OCCASIONALLY BEER AND ALCOHOL) Tobacco Use: Yes Substance Use: No Allergies-Medications (Allergen,Severity, Reaction): Coded Allergies: Iodinated Contrast- Oral and IV Dye (Verified Allergy, Unknown, 09/08/17) morphine (Verified Allergy, Unknown, 09/21/17) Reported Meds & Prescriptions Reported Meds & Active Scripts Active Reported Fentanyl Patch 72 HR (Fentanyl) 50 Mcg/Hr Patch 50 Mcg T-DERMAL Q72H Remove old patch when new one placed. Alprazolam 1 Mg Tab 1 Mg PO BID PRN Lexapro (Escitalopram Oxalate) 10 Mg Tab 10 Mg PO DAILY Pantoprazole (Pantoprazole Sodium) 40 Mg Tab 40 Mg PO DAILY Review of Systems ROS Limitations: Altered Mental Status Physical Exam Narrative GENERAL: Well-developed middle age -Polish female patient currently in moderate distress. Awake, not oriented. SKIN: Focused skin assessment warm/dry. HEAD: Atraumatic. Normocephalic. EYES: Pupils equal and round. No scleral icterus. No injection or drainage. ENT: No nasal bleeding or discharge. Mucous membranes pink and moist. NECK: Trachea midline. No JVD. CARDIOVASCULAR: Regular rate and rhythm. No murmur appreciated. RESPIRATORY: No accessory muscle use. Clear to auscultation. Breath sounds equal bilaterally. GASTROINTESTINAL: Abdomen soft, mild upper abdominal tenderness without guarding or rebound, nondistended. Hepatic and splenic margins not palpable. MUSCULOSKELETAL: No obvious deformities. No clubbing. No cyanosis. No edema. NEUROLOGICAL: Awake and alert. No obvious cranial nerve deficits. Motor grossly within normal limits. Normal speech. PSYCHIATRIC: Disoriented; insight and judgment poor. Data Data Last Documented VS Vital Signs Date Time Temp Pulse Resp B/P (MAP) Pulse Ox O2 Delivery O2 Flow Rate FiO2 09/21/17 21:10 96 Room Air 09/21/17 21:08 112 16 09/21/17 20:15 99.0 Orders Orders Electrocardiogram (09/21/17 20:24) Complete Blood Count With Diff (09/21/17 20:24) Comprehensive Metabolic Panel (09/21/17 20:24) Creatine Kinase (Cpk) (09/21/17 20:24) Prothrombin Time / Inr (Pt) (09/21/17 20:24) Act Partial Throm Time (Ptt) (09/21/17 20:24) Troponin I (09/21/17 20:24) Thyroid Stimulating Hormone (09/21/17 20:24) Urinalysis - C+S If Indicated (09/21/17 20:24) Blood Culture (09/21/17 20:24) Chest, Single Ap (09/21/17 20:24) Blood Glucose (09/21/17 20:24) Ecg Monitoring (09/21/17 20:24) Iv Access Insert/Monitor (09/21/17 20:24) Oximetry (09/21/17 20:24) Sodium Chloride 0.9% Flush (Ns Flush) (09/21/17 20:30) Drug Screen, Random Urine (09/21/17 20:24) Alcohol (Ethanol) (09/21/17 20:24) Ct Brain W/O Iv Contrast(Rout) (09/21/17 20:24) Ammonia (09/21/17 20:24) Piperacil-Tazo 4.5 Gm Premix (Zosyn 4.5 (09/21/17 22:23) Sodium Chlor 0.9% 1000 Ml Inj (Ns 1000 M (09/21/17 22:30) Cath For Specimen (09/21/17 22:32) Urine Culture (09/21/17 21:30) Haloperidol Inj (Haldol Inj) (09/22/17 01:00) Admit Order (Ed Use Only) (09/22/17 00:53) Labs Laboratory Tests Test 09/21/17 21:00 09/21/17 21:30 White Blood Count 17.6 TH/MM3 Red Blood Count 3.09 MIL/MM3 Hemoglobin 9.4 GM/DL Hematocrit 28.8 % Mean Corpuscular Volume 93.1 FL Mean Corpuscular Hemoglobin 30.5 PG Mean Corpuscular Hemoglobin Concent 32.7 % Red Cell Distribution Width 24.2 % Platelet Count 121 TH/MM3 Mean Platelet Volume 9.7 FL Neutrophils (%) (Auto) 91.4 % Lymphocytes (%) (Auto) 6.3 % Monocytes (%) (Auto) 1.4 % Eosinophils (%) (Auto) 0.6 % Basophils (%) (Auto) 0.3 % Neutrophils # (Auto) 16.1 TH/MM3 Lymphocytes # (Auto) 1.1 TH/MM3 Monocytes # (Auto) 0.2 TH/MM3 Eosinophils # (Auto) 0.1 TH/MM3 Basophils # (Auto) 0.1 TH/MM3 CBC Comment DIFF FINAL Differential Comment Prothrombin Time 13.2 SEC Prothromb Time International Ratio 1.2 RATIO Activated Partial Thromboplast Time 33.6 SEC Blood Urea Nitrogen 12 MG/DL Creatinine 1.02 MG/DL Random Glucose 121 MG/DL Total Protein 8.4 GM/DL Albumin 2.4 GM/DL Calcium Level 8.9 MG/DL Alkaline Phosphatase 157 U/L Aspartate Amino Transf (AST/SGOT) 50 U/L Alanine Aminotransferase (ALT/SGPT) 12 U/L Total Bilirubin 0.8 MG/DL Sodium Level 135 MEQ/L Potassium Level 3.7 MEQ/L Chloride Level 105 MEQ/L Carbon Dioxide Level 22.0 MEQ/L Anion Gap 8 MEQ/L Estimat Glomerular Filtration Rate 67 ML/MIN Ammonia 39 MCMOL/L Total Creatine Kinase 23 U/L Troponin I LESS THAN 0.02 NG/ML Thyroid Stimulating Hormone 3rd Gen 2.310 uIU/ML Ethyl Alcohol Level LESS THAN 3 MG/DL Urine Color YELLOW Urine Turbidity HAZY Urine pH 5.5 Urine Specific [place] 1.023 Urine Protein 30 mg/dL Urine Glucose (UA) NEG mg/dL Urine Ketones NEG mg/dL Urine Occult Blood NEG Urine Nitrite NEG Urine Bilirubin NEG Urine Urobilinogen 4.0 MG/DL Urine Leukocyte Esterase TRACE Urine RBC 0-3 /hpf Urine WBC 3-5 /hpf Urine Squamous Epithelial Cells > 8 /hpf Urine Amorphous Sediment MOD Urine Bacteria OCC /hpf Urine Hyaline Casts 0-2 /lpf Microscopic Urinalysis Comment CATH-CULTURE IND Urine Opiates Screen POS Urine Barbiturates Screen NEG Urine Amphetamines Screen NEG Urine Benzodiazepines Screen POS Urine Cocaine Screen NEG Urine Cannabinoids Screen NEG MDM Medical Decision Making Medical Screen Exam Complete: Yes Emergency Medical Condition: Yes Medical Record Reviewed: Yes Interpretation(s) EKG shows sinus tachycardia at a rate of 120 bpm with no signs of acute ST-T changes. Laboratory Tests Test 09/21/17 21:00 09/21/17 21:30 White Blood Count 17.6 TH/MM3 (4.0-11.0) Red Blood Count 3.09 MIL/MM3 (4.00-5.30) Hemoglobin 9.4 GM/DL (11.6-15.3) Hematocrit 28.8 % (35.0-46.0) Red Cell Distribution Width 24.2 % (11.6-17.2) Platelet Count 121 TH/MM3 (150-450) Neutrophils (%) (Auto) 91.4 % (16.0-70.0) Lymphocytes (%) (Auto) 6.3 % (9.0-44.0) Neutrophils # (Auto) 16.1 TH/MM3 (1.8-7.7) Prothrombin Time 13.2 SEC (9.8-11.6) Activated Partial Thromboplast Time 33.6 SEC (24.3-30.1) Creatinine 1.02 MG/DL (0.50-1.00) Random Glucose 121 MG/DL (74-106) Total Protein 8.4 GM/DL (6.4-8.2) Albumin 2.4 GM/DL (3.4-5.0) Alkaline Phosphatase 157 U/L (45-117) Aspartate Amino Transf (AST/SGOT) 50 U/L (15-37) Sodium Level 135 MEQ/L (136-145) Estimat Glomerular Filtration Rate 67 ML/MIN (>89) Ammonia 39 MCMOL/L (11-32) Total Creatine Kinase 23 U/L (26-192) Troponin I LESS THAN 0.02 NG/ML Urine Turbidity HAZY (CLEAR) Urine Protein 30 mg/dL (NEG-TRACE) Urine Urobilinogen 4.0 MG/DL (LESS THAN Urine Leukocyte Esterase TRACE (NEG) Urine Squamous Epithelial Cells > 8 /hpf (0-5) Urine Bacteria OCC /hpf (NONE) Urine Opiates Screen POS (NEG) Urine Benzodiazepines Screen POS (NEG) Last [address] 09/21/172023 Signed Impressions: Service Date/Time: Thursday, September 21, 2017 20:37 - CONCLUSION: Normal examination. Godfrey Marmolejo MD Chest X-Ray 09/21/172023 Signed Impressions: Service Date/Time: Thursday, September 21, 2017 20:52 - CONCLUSION: Linear atelectasis or scarring at the left base. Godfrey Marmolejo MD Differential Diagnosis Altered mental status: Dehydration versus metabolic issues versus sepsis versus brain metastases versus acute intercranial processes Narrative Course Lab work shows leukocytosis of uncertain etiology. CAT scan did not show any signs of acute intracranial processes. Considering her lab work, IV antibiotics were initiated as a precaution. I do not see an obvious source and she is afebrile. Her ammonia level is mildly elevated, it is questionable whether there may be some underlying encephalopathy component. Patient becomes fairly agitated in the ER and has to be redirected often according to nurses. She was given Haldol for agitation and altered mental status. At this point, my plan would be to admit her for further treatment. Case was discussed with Dr. Go for admission. Diagnosis Primary Impression: Altered mental status Additional Impression: SIRS (systemic inflammatory response syndrome) Admitting Information Admitting Physician Requests: Admit Bette Weathers MD Sep 21, 2017 20:33
[2017-09-21 21:08] VITALS: BP 93/50; PULSE 112; RESP 16; O2SAT 94
[2017-09-21 21:10] VITALS: O2SAT 96
[2017-09-21 21:35] LABS: AUTOMATED NEUTROPHIL # 16.1 TH/MM3 (1.8-7.7); BASOPHIL # 0.1 TH/MM3 (0-0.2); BASOPHIL % 0.3 % (0.0-2.0); EOSINOPHIL # 0.1 TH/MM3 (0-0.4); EOSINOPHIL % 0.6 % (0.0-4.0); HEMATOCRIT 28.8 % (35.0-46.0); HEMO FLAGS DIFF FINAL; LYMPH % 6.3 % (9.0-44.0); LYMPHOCYTE # 1.1 TH/MM3 (1.0-4.8); MEAN CELL VOLUME 93.1 FL (80.0-100.0); MEAN CORPUSCULAR HEMOGLOBIN 30.5 PG (27.0-34.0); MEAN CORPUSCULAR HGB CONC 32.7 % (32.0-36.0); MONO % 1.4 % (0.0-8.0); NEUT % 91.4 % (16.0-70.0); PLATELET COUNT 121 TH/MM3 (150-450); RED BLOOD COUNT 3.09 MIL/MM3 (4.00-5.30); RED CELL DISTRIBUTION WIDTH 24.2 % (11.6-17.2); WHITE BLOOD COUNT 17.6 TH/MM3 (4.0-11.0)
[2017-09-21 21:42] LABS: APTT (PATIENT) 33.6 SEC (24.3-30.1); INTERNATIONAL NORMALIZED RATIO 1.2 RATIO; PROTHROMBIN TIME - PATIENT 13.2 SEC (9.8-11.6)
[2017-09-21 22:02] LABS: ALT (GPT) 12 U/L (10-53); ANION GAP 8 MEQ/L (5-15); AST (GOT) 50 U/L (15-37); BLOOD UREA NITROGEN 12 MG/DL (7-18); CHLORIDE 105 MEQ/L (98-107); GLOMERULAR FILTRATION RATE 67 ML/MIN (>89); POTASSIUM 3.7 MEQ/L (3.5-5.1); SODIUM (NA) 135 MEQ/L (136-145)
--- NOTE | 2017-09-21 22:03 | RADRPT ---
EXAM DATE/TIME: 09/21/2017 20:37 [facility] COMPARISON: CT BRAIN W/O CONTRAST, August 21, 2017, 21:53. INDICATIONS : Altered mental status. RADIATION DOSE: 56.35 CTDIvol (mGy) MEDICAL HISTORY : liver cancer SURGICAL HISTORY : None. ENCOUNTER: Initial ACUITY: 1 day PAIN SCALE: 0/10 LOCATION: cranial TECHNIQUE: Multiple contiguous axial images were obtained of the head. Using automated exposure control and adj ustment of the mA and/or kV according to patient size, radiation dose was kept as low as reasonably a chievable to obtain optimal diagnostic quality images. DICOM format image data is available electro nically for review and comparison. FINDINGS: CEREBRUM: The ventricles are normal for age. No evidence of midline shift, mass lesion, hemorrhage or acute in farction. No extra-axial fluid collections are seen. POSTERIOR FOSSA: The cerebellum and brainstem are intact. The 4th ventricle is midline. The cerebellopontine angle i s unremarkable. EXTRACRANIAL: The visualized portion of the orbits is intact. SKULL: The calvaria is intact. No evidence of skull fracture. CONCLUSION: Normal examination. Godfrey Marmolejo MD on September 21, 2017 at 22:00 Board Certified Radiologist. This report was verified electronically.
[2017-09-21 22:13] LABS: ALKALINE PHOSPHATASE 157 U/L (45-117); TOTAL BILIRUBIN ADULT 0.8 MG/DL (0.2-1.0)
[2017-09-21 22:16] LABS: CREATINE KINASE 23 U/L (26-192)
--- NOTE | 2017-09-21 22:21 | RADRPT ---
EXAM DATE/TIME: 09/21/2017 20:52 [place] COMPARISON: CT ABDOMEN & PELVIS W/O CONTRAST, August 22, 2017, 19:18. CHEST SINGLE AP, August 23, 2017, 9:45. INDICATIONS : Syncope. Shortness of breath. MEDICAL HISTORY : Hypertension. Liver and bone cancer, mets. SURGICAL HISTORY : Hysterectomy. Port. ENCOUNTER: Initial ACUITY: 1 day PAIN SCORE: Non-responsive. LOCATION: Bilateral chest FINDINGS: There is a CT compatible [id number] in place. The heart size is normal. There is linear density at the left base likely related to atelectasis or scarring. The lungs are otherwise clear. The bony str uctures are unremarkable. CONCLUSION: Linear atelectasis or scarring at the left base. Godfrey Marmolejo MD on September 21, 2017 at 22:18 Board Certified Radiologist. This report was verified electronically.
[2017-09-21] MEDS ORDERED: PIPERACIL-TAZO 4.5 GM PREMIX 100 ML IV STA (22:23)
[2017-09-21] MEDS ORDERED: SODIUM CHLOR 0.9% 1000 ML INJ 1,000 ML IV ONE (22:30)
[2017-09-22] VITALS (8 sets, daily range): BP systolic 94–163; BP diastolic 51–77; PULSE 92–108; RESP 16–20; TEMP 98.1–99.1; O2SAT 94–97
[2017-09-22 00:20] LABS: BLOOD, URINE NEG (NEG); GLUCOSE,URINE NEG (NEG); KETONE, URINE NEG (NEG); NITRITE,URINE NEG (NEG); PH, URINE 5.5 (5.0-8.5); URINE COLOR YELLOW (YELLW/STRAW)
[2017-09-22 00:44] LABS: BACTERIA, URINE OCC /hpf; RBC, URINE 0-3 /hpf (0-3); SQUAMOUS EPITHELIAL CELL URINE > 8 /hpf (0-5)
[2017-09-22 00:46] LABS: COMMENT (UR) CATH-CULTURE IND; CULTURE IF INDICATED CATH CULTURE IND; HYALINE CAST, URINE 0-2 /lpf (RARE)
[2017-09-22] MEDS ORDERED: ACETAMINOPHEN 325 MG TAB PO PRN (01:00)
[2017-09-22] MEDS ORDERED: MAGNESIUM HYDROXIDE SUSP 30 ML CUP PO PRN (01:00)
[2017-09-22] MEDS ORDERED: SODIUM CHLORIDE 0.9% FLUSH 10 ML FLUSH IV FLUSH PRN (01:00)
[2017-09-22] MEDS ORDERED: BISACODYL 10 MG SUPP RECTAL PRN (01:00)
[2017-09-22] MEDS ORDERED: ONDANSETRON HCL 4 MG/2 ML VIAL IVP PRN (01:00)
[2017-09-22] MEDS ORDERED: HALOPERIDOL LACTATE 5 MG/ML AMP IM ONE (01:00)
[2017-09-22] MEDS ORDERED: SENNOSIDES 8.6 MG TAB PO PRN (01:00)
[2017-09-22] MEDS: SODIUM CHLOR 0.9% 1000 ML INJ 1,000 ML IV SCH ×4 (02:39→20:56)
--- NOTE | 2017-09-22 02:40 | HHI.HP ---
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 Currently on Chemo, following w/ Dr. Camarena. Daughter reports similar symptoms in the past at which time pt had UTI. No reported fever, chills. On arrival, BP 114/59, HR 128, O2 sat 95% on RA, Temp 99.0. He sees 17.6. Creatinine 1.02, produces 0.71 . Ammonia 39. Troponin negative. INR 1.2. UA positive. Alcohol negative. Urine Drug Screen positive for Opiates and Benzo. CXR with linear atelectasis. CT Head normal. S/p Blood Cultures and Zosyn in ER Review of Systems Except as stated in HPI: all other systems reviewed are Neg ROS: 14 point review of systems otherwise negative. Past Family Social History Past Medical History PMH: Metastatic Adenocarcinoma w/ Mets to Liver/Bone, HTN, Anxiety and Hyperlipidemia Past Surgical History PAST SURGICAL HISTORY: Hysterectomy Allergies: Coded Allergies: Iodinated Contrast- Oral and IV Dye (Verified Allergy, Unknown, 09/08/17) morphine (Verified Allergy, Unknown, 09/21/17) Family History PAST FAMILY HISTORY: Reviewed, positive for CAD. Social History PAST SOCIAL HISTORY: Occasional alcohol. Positive for tobacco. Negative for drugs. Physical Exam Vital Signs Vital Signs Date Time Temp Pulse Resp B/P (MAP) Pulse Ox O2 Delivery O2 Flow Rate FiO2 09/21/17 21:10 96 Room Air 09/21/17 21:08 112 16 93/50 (64) 94 Room Air 09/21/17 20:22 129 09/21/17 20:15 99.0 128 16 114/59 (77) 95 Room Air Physical Exam PE: GENERAL: Middle-aged black female in no acute distress. HEENT: PERRLA, EOMI. No scleral icterus or conjunctival pallor. No lid lag or facial droop. CARDIOVASCULAR: Regular rate and rhythm. No obvious murmurs to auscultation. No chest tenderness to palpation. RESPIRATORY: No obvious rhonchi or wheezing. Clear to auscultation. Breath sounds equal bilaterally. GASTROINTESTINAL: Abdomen soft, non-tender, nondistended. BS normal. MUSCULOSKELETAL: Extremities without clubbing, cyanosis, or edema. No obvious deformities. NEUROLOGICAL: Awake, alert, confused. No focal neurologic deficits. Moving both upper and lower extremities spontaneously. Laboratory Laboratory Tests Test 09/21/17 21:00 09/21/17 21:30 White Blood Count 17.6 Red Blood Count 3.09 Hemoglobin 9.4 Hematocrit 28.8 Mean Corpuscular Volume 93.1 Mean Corpuscular Hemoglobin 30.5 Mean Corpuscular Hemoglobin Concent 32.7 Red Cell Distribution Width 24.2 Platelet Count 121 Mean Platelet Volume 9.7 Neutrophils (%) (Auto) 91.4 Lymphocytes (%) (Auto) 6.3 Monocytes (%) (Auto) 1.4 Eosinophils (%) (Auto) 0.6 Basophils (%) (Auto) 0.3 Neutrophils # (Auto) 16.1 Lymphocytes # (Auto) 1.1 Monocytes # (Auto) 0.2 Eosinophils # (Auto) 0.1 Basophils # (Auto) 0.1 CBC Comment DIFF FINAL Differential Comment Prothrombin Time 13.2 Prothromb Time International Ratio 1.2 Activated Partial Thromboplast Time 33.6 Blood Urea Nitrogen 12 Creatinine 1.02 Random Glucose 121 Total Protein 8.4 Albumin 2.4 Calcium Level 8.9 Alkaline Phosphatase 157 Aspartate Amino Transf (AST/SGOT) 50 Alanine Aminotransferase (ALT/SGPT) 12 Total Bilirubin 0.8 Sodium Level 135 Potassium Level 3.7 Chloride Level 105 Carbon Dioxide Level 22.0 Anion Gap 8 Estimat Glomerular Filtration Rate 67 Ammonia 39 Total Creatine Kinase 23 Troponin I LESS THAN 0.02 Thyroid Stimulating Hormone 3rd Gen 2.310 Ethyl Alcohol Level LESS THAN 3 Urine Color YELLOW Urine Turbidity HAZY Urine pH 5.5 Urine Specific [place] 1.023 Urine Protein 30 Urine Glucose (UA) NEG Urine Ketones NEG Urine Occult Blood NEG Urine Nitrite NEG Urine Bilirubin NEG Urine Urobilinogen 4.0 Urine Leukocyte Esterase TRACE Urine RBC 0-3 Urine WBC 3-5 Urine Squamous Epithelial Cells > 8 Urine Amorphous Sediment MOD Urine Bacteria OCC Urine Hyaline Casts 0-2 Microscopic Urinalysis Comment CATH-CULTURE IND Urine Opiates Screen POS Urine Barbiturates Screen NEG Urine Amphetamines Screen NEG Urine Benzodiazepines Screen POS Urine Cocaine Screen NEG Urine Cannabinoids Screen NEG Date/Time Source Procedure Growth Status 09/21/17 21:05 Blood Peripheral Aerobic Blood Culture Pending Received 09/21/17 21:05 Blood Peripheral Anaerobic Blood Culture Pending Received 09/21/17 21:30 Urine Catheterized Urine Urine Culture Pending Received Result Diagram: 09/21/17209909/21/172099 Carri VTE Risk Assessment Caprini VTE Risk Assessment: No/Low Risk (score <= 1) VTE Pharm Contraindication: High risk for bleeding Caprini Risk Assessment Model Point Value = 1 Point Value = 2 Point Value = 3 Point Value = 5 Age 41-60 Minor surgery BMI > 25 kg/m2 Swollen legs Varicose veins or History of unexplained or recurrent spontaneous Oral contraceptives or hormone replacement Sepsis (< 1 month) Serious lung disease, including pneumonia (< 1 month) Abnormal pulmonary function Acute myocardial infarction Congestive heart failure (< 1 month) History of inflammatory bowel disease Medical patient at bed rest Age 61-74 Arthroscopic surgery Major open surgery (> 45 min) Laparoscopic surgery (> 45 min) Malignancy Confined to bed (> 72 hours) Immobilizing plaster cast Central venous access Age >= 75 History of VTE Family history of VTE Factor V Leiden Prothrombin [id number] Lupus anticoagulant Anticardiolipin antibodies Elevated serum homocysteine Heparin-induced thrombocytopenia Other congenital or acquired thrombophilia Stroke (< 1 month) Elective arthroplasty Hip, pelvis, or leg fracture Acute spinal cord injury (< 1 month) Prophylaxis Regimen Total Risk Factor Score Risk Level Prophylaxis Regimen 0-1 Low Early ambulation 2 Moderate Order ONE of the following: *Sequential Compression Device (SCD) *Heparin 5000 units SQ BID 3-4 Higher Order ONE of the following medications: *Heparin 5000 units SQ TID *Enoxaparin/Lovenox 40 mg SQ daily (WT < 150 kg, CrCl > 30 mL/min) *Enoxaparin/Lovenox 30 mg SQ daily (WT < 150 kg, CrCl > 10-29 mL/min) *Enoxaparin/Lovenox 30 mg SQ BID (WT < 150 kg, CrCl > 30 mL/min) AND/OR *Sequential Compression Device (SCD) 5 or more Highest Order ONE of the following medications: *Heparin 5000 units SQ TID (Preferred with Epidurals) *Enoxaparin/Lovenox 40 mg SQ daily (WT < 150 kg, CrCl > 30 mL/min) *Enoxaparin/Lovenox 30 mg SQ daily (WT < 150 kg, CrCl > 10-29 mL/min) *Enoxaparin/Lovenox 30 mg SQ BID (WT < 150 kg, CrCl > 30 mL/min) AND *Sequential Compression Device (SCD) Assessment and Plan Problem List: (1) Encephalopathy ICD Code: G93.40 - Encephalopathy, unspecified (2) SIRS (systemic inflammatory response syndrome) ICD Code: R65.10 - Systemic inflammatory response syndrome (SIRS) of non- infectious origin without acute organ dysfunction Status: Acute (3) UTI (urinary tract infection) ICD Code: N39.0 - Urinary tract infection, site not specified (4) Metastatic cancer ICD Code: C79.9 - Secondary malignant neoplasm of unspecified site (5) KIAN (acute kidney injury) ICD Code: N17.9 - Acute kidney failure, unspecified Assessment and Plan A/P: 1. Encephalopathy: Likely secondary to UTI in combination w/ hyperammonemia. CT Head w/ no acute findings, images reviewed by me. Ammonia 39, start Lactulose. 2. SIRS: HR 112, Temp 99.0, WBC 17, Source-UTI. S/p Blood Cultures and IV Zosyn, continue w/ IV Abx, follow up cultures. 3. UTI: Recurrent. U/a w/ UTI. Continue w/ treatment as above. 4. KIAN: Creatinine 1.02, previously 0.71 on 09/18/17. IVF for hydration, repeat labs in am. 5. Metastatic CA: Metastatic Carcinoma of unknown primary w/ liver and bone metastasis. Following w/ Dr. Camarena, on Chemo. Will consult for further evaluation. 6. DVT Prophylaxis: SCD/Teds. Pharmacologic contraindication in light of liver mets/coagulopathy. 7. Social work for d/c planning as needed. 8. Case discussed w/ ER physician at length. Physician Certification 2 Midnight Certification Type: Admission for Inpatient Services Order for Inpatient Services The services are ordered in accordance with Medicare regulations or non- Medicare payer requirements, as applicable. In the case of services not specified as inpatient-only, they are appropriately provided as inpatient services in accordance with the 2-midnight benchmark. Estimated LOS (days): 2 days is the estimated time the patient will need to remain in the hospital, assuming treatment plan goals are met and no additional complications. Post-Hospital Plan: Not yet determined Fadia Go MD Sep 22, 2017 02:40
[2017-09-22] MEDS: PIPERACIL-TAZO 3.375 GM PREMIX 50 ML IV SCH ×4 (04:42→23:50)
[2017-09-22] MEDS: SODIUM CHLORIDE 0.9% FLUSH 10 ML FLUSH IV FLUSH SCH ×2 (09:00→21:00)
[2017-09-22] MEDS: DOCUSATE SODIUM 50 MG/SENNA 8.6 MG TAB PO SCH ×2 (09:34→21:12)
[2017-09-22] MEDS: LACTULOSE SYRUP 20 GM/30 ML CUP PO SCH ×3 (09:34→17:26)
--- NOTE | 2017-09-22 09:36 | EKG ---
Date Performed: 09/21/2017 Time Performed: 20:34:47 PTAGE: 56 years EKG: SINUS TACHYCARDIA WITH SHORT LA INTERVAL NONSPECIFIC ST & T-WAVE ABNORMALITY Compared to pr evious tracing, nonspecific ST and T wave changes are now present ABNORMAL RHYTHM ECG PREVIOUS TRACING : 12/31/08 @ 2053 DOCTOR: Russ Ames Interpretating Date/Time 09/22/2017 09:35:39
[2017-09-22] MEDS ORDERED: Custom Consult Pharmacy 1 EA OTHER SCH (16:15)
--- NOTE | 2017-09-22 16:21 | MB ---
cc: HARSHAL GALE MD, RUBY ANNE E. M.D. DATE OF CONSULTATION: 09/22/2017. REASON FOR CONSULTATION / CHIEF COMPLAINT: Dr. Gale requested a consultation for Mrs. Martinez regarding metastatic cancer. HISTORY OF PRESENT ILLNESS: Mrs. Martinez is a 56-year-old woman well-known patient to Dr. Franky Camarena with a metastatic poorly differentiated carcinoma of unknown primary. She has liver and bone metastatic disease. She was started on cisplatin, gemcitabine and had progressive disease. She was switched to Taxol and gemcitabine. She seemed to have a response and recently she was switched to Topotecan. After progression on Topotecan, she was switched to doxorubicin. She is receiving her second cycle mid September. At her last visit with Dr. Camarena, they discussed the risks and benefits of the doxorubicin. She had a lot of toxicity with the chemotherapy. She was not ready for hospice. Her pain is under control on fentanyl patches, 50 micrograms. Her breakthrough medication was switched to Dilaudid recently by Dr. Camarena. Followup visit was arranged. In the meantime, she developed increasing confusion and was brought in by her daughter on September 21, 2017. Her daughter described her sitting on the side of the bed not looking well. She was quiet, which is not typically her. Her daughter suspects that she has a urinary tract infection because of her request to drink Pepsi. The patient apparently does not drink enough fluid. Generally she is able to care for herself at home. She dresses and bathes herself and does some chores around the house. She had pain very well controlled on fentanyl and Dilaudid. Her fentanyl patch is not on at the time of the consultation. The patient denies pain repeatedly. No appreciable history was obtained from the patient. She smiled and answered questions; however, she is unable to tell when her last chemo was. She is a bit confused. She had requested that I talk to her daughter, who complemented the history as described above. She denies any abdominal pain, nausea or vomiting. She is quite content to be resting in bed. She denies any chest pain. No mouth sores. No problems swallowing. PAST MEDICAL HISTORY: 1. Metastatic cancer of unknown primary. 2. Liver and bone metastatic disease. 3. Hypercholesterolemia. 4. Recurrent urinary tract infection. 5. Hypertension. 6. Anxiety. 7. Arthritis. PAST SURGICAL HISTORY: 1. Hysterectomy. 2. Port placement. FAMILY HISTORY: Family history is significant for myocardial infarction. SOCIAL HISTORY: She drinks alcohol occasionally. She smokes. She denies any illicit drug use. ALLERGIES: 1. CONTRAST. 2. MORPHINE. CURRENT MEDICATIONS: 1. Lactulose. 2. Payal-Colace. 3. Piperacillin / tazobactam. 4. Sodium chloride. PHYSICAL EXAMINATION: VITAL SIGNS: Temperature 98.4, hemoglobin 96, respiratory rate 16, blood pressure 121/56. GENERAL: Mrs. Martinez is a well-developed, well-nourished woman who looks older than her stated age. HEAD, EYES, EARS, NOSE, THROAT: Her pupils are reactive to light and accommodation. Sclerae nonicteric. Oropharynx is clear. Her front teeth are missing. NECK: The neck is supple. LUNGS: Clear. CARDIOVASCULAR: Mild tachycardia. ABDOMEN: Benign. LOWER EXTREMITIES: With no edema. She moves all four extremities. LABS: Significant for leukocytosis. White blood cell count is 17.6, hemoglobin 9.4, platelet count 121,000. BUN is increased to 12 and creatinine 1.02. Estimated glomerulofiltration rate is decreased. AST mildly elevated at 50. Alkaline phosphatase decreased. Ammonia is 39. Albumin decreased at 2.4. ASSESSMENT AND PLAN: Mrs. Martinez is a 56-year-old woman with history of metastatic adenocarcinoma of unknown primary. She has progressive disease on multiple lines of chemotherapy. Most recently she is on single-agent Adriamycin with a lot of toxicity. I discussed her the case with her daughter. She does not feel the pain medication is contributing to her confusion. It appears that her fentanyl patch has been removed. Mrs. Lombardi however denies any pain at present. I would continue to hold off on the fentanyl patch unless necessary. She seems comfortable. She is pleasant and cooperative Antibiotic therapy is administered. She is noted to have an increasing creatinine. The pharmacy will be consulted to adjust the dose. She looks euvolemic. She denies any barrier to eating or drinking, though drinking may be a problem as per her daughter's reporting. No an additional therapy except for support from the oncology standpoint. She has no mucositis. She has alopecia. She has mild anemia but no neutropenia. Dr. Camarena will return on Sunday to resume her care. MD KAMILAH Stacy/PITO /3:59 PM /4:14 PM
[2017-09-23 04:00] VITALS: BP 142/76; PULSE 88; RESP 20; TEMP 98.4; O2SAT 97
[2017-09-23] MEDS: PIPERACIL-TAZO 3.375 GM PREMIX 50 ML IV SCH ×4 (05:27→23:00)
[2017-09-23 06:08] LABS: INTERNATIONAL NORMALIZED RATIO 1.2 RATIO; PROTHROMBIN TIME - PATIENT 13.9 SEC (9.8-11.6)
[2017-09-23 06:17] LABS: ANION GAP 7 MEQ/L (5-15); AST (GOT) 63 U/L (15-37); BLOOD UREA NITROGEN 10 MG/DL (7-18); CHLORIDE 112 MEQ/L (98-107); GLOMERULAR FILTRATION RATE 109 ML/MIN (>89); POTASSIUM 3.7 MEQ/L (3.5-5.1); SODIUM (NA) 143 MEQ/L (136-145)
[2017-09-23 06:21] LABS: ALKALINE PHOSPHATASE 128 U/L (45-117); ALT (GPT) 13 U/L (10-53); TOTAL BILIRUBIN ADULT 1.1 MG/DL (0.2-1.0)
[2017-09-23 06:22] LABS: AUTOMATED NEUTROPHIL # 13.8 TH/MM3 (1.8-7.7); BASOPHIL % 0.2 % (0.0-2.0); EOSINOPHIL # 0.1 TH/MM3 (0-0.4); EOSINOPHIL % 0.5 % (0.0-4.0); LYMPH % 4.1 % (9.0-44.0); LYMPHOCYTE # 0.6 TH/MM3 (1.0-4.8); MEAN CELL VOLUME 92.3 FL (80.0-100.0); MEAN CORPUSCULAR HEMOGLOBIN 30.1 PG (27.0-34.0); MEAN CORPUSCULAR HGB CONC 32.6 % (32.0-36.0); NEUT % 94.2 % (16.0-70.0); PLATELET COUNT 72 TH/MM3 (150-450); RED CELL DISTRIBUTION WIDTH 23.7 % (11.6-17.2); WHITE BLOOD COUNT 14.7 TH/MM3 (4.0-11.0)
[2017-09-23 07:00] LABS: HEMO FLAGS AUTO DIFF
[2017-09-23 07:30] VITALS: BP 130/58; PULSE 83; RESP 18; TEMP 98.4; O2SAT 97
[2017-09-23] MEDS: SODIUM CHLOR 0.9% 1000 ML INJ 1,000 ML IV SCH ×2 (08:24→18:19)
[2017-09-23 08:37] LABS: PLATELET ESTIMATE SMEAR LOW (NORMAL); PLATELET MORPHOLOGY NORMAL (NORMAL); SCAN/DIFF AUTO DIFF CONFIRMED; TEARDROP RBCS 1+ (NORMAL)
--- NOTE | 2017-09-23 08:46 | PD.ONC.PN ---
Subjective Subjective Remarks Afebrile overnight. Patient less confused today. Feeling a bit better. Denies pain. Objective Data Date Time Temp Pulse Resp B/P (MAP) Pulse Ox O2 Delivery O2 Flow Rate FiO2 09/23/17 07:30 98.4 83 18 130/58 (82) 97 09/23/17 04:00 98.4 88 20 142/76 (98) 97 09/22/17 23:55 98.9 92 18 123/66 (85) 97 09/22/17 20:00 99.1 98 20 125/63 (83) 97 09/22/17 16:00 98.4 102 16 163/77 (105) 94 09/22/17 12:00 98.4 96 16 121/56 (77) 96 09/23/17 09/23/17 09/23/17 07:00 15:00 23:00 Intake Total 50 ml Balance 50 ml Result Diagram: 09/23/17 0540 09/23/17 0540 Laboratory Results Laboratory Tests Test 09/23/17 05:40 White Blood Count 14.7 TH/MM3 Red Blood Count 2.50 MIL/MM3 Hemoglobin 7.5 GM/DL Hematocrit 23.0 % Mean Corpuscular Volume 92.3 FL Mean Corpuscular Hemoglobin 30.1 PG Mean Corpuscular Hemoglobin Concent 32.6 % Red Cell Distribution Width 23.7 % Platelet Count 72 TH/MM3 Mean Platelet Volume 9.1 FL Neutrophils (%) (Auto) 94.2 % Lymphocytes (%) (Auto) 4.1 % Monocytes (%) (Auto) 1.0 % Eosinophils (%) (Auto) 0.5 % Basophils (%) (Auto) 0.2 % Neutrophils # (Auto) 13.8 TH/MM3 Lymphocytes # (Auto) 0.6 TH/MM3 Monocytes # (Auto) 0.1 TH/MM3 Eosinophils # (Auto) 0.1 TH/MM3 Basophils # (Auto) 0.0 TH/MM3 CBC Comment AUTO DIFF Differential Comment AUTO DIFF CONFIRMED Platelet Estimate LOW Platelet Morphology Comment NORMAL Tear Drop Cells 1+ Prothrombin Time 13.9 SEC Prothromb Time International Ratio 1.2 RATIO Blood Urea Nitrogen 10 MG/DL Creatinine 0.67 MG/DL Random Glucose 98 MG/DL Total Protein 7.1 GM/DL Albumin 1.9 GM/DL Calcium Level 8.4 MG/DL Alkaline Phosphatase 128 U/L Aspartate Amino Transf (AST/SGOT) 63 U/L Alanine Aminotransferase (ALT/SGPT) 13 U/L Total Bilirubin 1.1 MG/DL Sodium Level 143 MEQ/L Potassium Level 3.7 MEQ/L Chloride Level 112 MEQ/L Carbon Dioxide Level 24.0 MEQ/L Anion Gap 7 MEQ/L Estimat Glomerular Filtration Rate 109 ML/MIN Culture Results Microbiology Date/Time Source Procedure Growth Status 09/21/17 21:05 Blood Peripheral Aerobic Blood Culture - Preliminary NO GROWTH IN 1 DAY Resulted 09/21/17 21:05 Blood Peripheral Anaerobic Blood Culture - Preliminary NO GROWTH IN 1 DAY Resulted 09/21/17 21:00 Blood Peripheral Aerobic Blood Culture - Preliminary NO GROWTH IN 1 DAY Resulted 09/21/17 21:00 Blood Peripheral Anaerobic Blood Culture - Preliminary NO GROWTH IN 1 DAY Resulted 09/21/17 21:30 Urine Catheterized Urine Urine Culture - Preliminary RESULTS PENDING Resulted Administered Medications Medications (Trade) Dose Ordered Sig/Amanda Route PRN Reason Start Time Stop Time Status Last Admin Dose Admin Piperacillin Sod/ Tazobactam Sod 50 ml @ 100 mls/hr Q6H IV 09/22/17 05:00 09/23/17 05:27 Sodium Chloride 1,000 ml @ 100 mls/hr Q10H IV 09/22/17 00:56 09/22/17 16:50 Sodium Chloride (NS Flush) 2 ml BID IV FLUSH 09/22/17 09:00 09/22/17 09:00 Oxycodone HCl (Roxicodone) 10 mg Q4H PRN PO PAIN SCALE 6 TO 10 09/22/17 01:00 09/23/17 05:33 Senna/Docusate Sodium (Payal-Colace) 1 tab BID PO 09/22/17 09:00 09/22/17 21:12 Lactulose (Lactulose Liq) 30 ml TID PO 09/22/17 09:00 09/22/17 17:26 Objective Remarks GENERAL: Middle aged female lying in bed in [facility]. SKIN: Warm and dry. HEAD: Normocephalic. EYES: No injection or drainage. NECK: Supple, trachea midline. CARDIOVASCULAR: Regular rate and rhythm RESPIRATORY: Breath sounds equal bilaterally. No accessory muscle use. GASTROINTESTINAL: Abdomen soft, non-tender, nondistended. EXTREMITIES: No cyanosis NEUROLOGICAL: awake and alert. normal speech. moving all extremities. Assessment/Plan Problem List: (1) Metastatic carcinoma involving bone with unknown primary site ICD Codes: C79.51 - Secondary malignant neoplasm of bone; C80.1 - Malignant ( primary) neoplasm, unspecified Plan: --has progressed disease on multiple lines of chemotherapy. -- Most recently on single-agent Adriamycin with a lot of toxicity. (2) Altered mental status ICD Codes: R41.82 - Altered mental status, unspecified Status: Acute Plan: --?d/t UTI. on antibiotics --hold off on the fentanyl patch unless necessary. (3) Anemia due to antineoplastic chemotherapy ICD Codes: D64.81 - Anemia due to antineoplastic chemotherapy; T45.1X5A - Adverse effect of antineoplastic and immunosuppressive drugs, initial encounter (4) thrombocytopenia due to chemotherapy Assessment 56y/o female with metastatic poorly differentiated carcinoma of unknown primary with liver and bony metastatic disease admitted with increasing confusion. h/o Hypercholesterolemia. Recurrent urinary tract infection. Hypertension. Anxiety. Arthritis. Plan 1. continue antibiotics. await urine culture 2. monitor blood counts. Ashlee Wilhelm Sep 23, 2017 08:46
[2017-09-23] MEDS: LACTULOSE SYRUP 20 GM/30 ML CUP PO SCH ×3 (09:31→17:41)
[2017-09-23] MEDS: DOCUSATE SODIUM 50 MG/SENNA 8.6 MG TAB PO SCH ×2 (09:32→21:00)
[2017-09-23] MEDS: SODIUM CHLORIDE 0.9% FLUSH 10 ML FLUSH IV FLUSH SCH ×2 (09:32→21:00)
[2017-09-23 12:00] VITALS: BP 159/72; PULSE 88; RESP 18; TEMP 97.6; O2SAT 97
--- NOTE | 2017-09-23 13:38 | HHI.PR ---
Subjective Remarks More alert, no more nausea and no vomiting. She is able to eat something to keep down. Denies fever or chills. Urine is darker color, no pain with urination. Denies fever or chills. She feels improved since yesterday. Family at bedside. Objective Vitals Vital Signs Date Time Temp Pulse Resp B/P (MAP) Pulse Ox O2 Delivery O2 Flow Rate FiO2 09/23/17 12:00 97.6 88 18 159/72 (101) 97 09/23/17 07:30 98.4 83 18 130/58 (82) 97 09/23/17 04:00 98.4 88 20 142/76 (98) 97 09/22/17 23:55 98.9 92 18 123/66 (85) 97 09/22/17 20:00 99.1 98 20 125/63 (83) 97 09/22/17 16:00 98.4 102 16 163/77 (105) 94 I/O 09/22/17 09/22/17 09/22/17 09/23/17 09/23/17 09/23/17 07:00 15:00 23:00 07:00 15:00 23:00 Intake Total 220 ml 1770 ml 50 ml Balance 220 ml 1770 ml 50 ml Intake Oral 720 ml IV Total 220 ml 1050 ml 50 ml # Voids 1 8 1 # Bowel Movements 1 4 1 Result Diagram: 09/23/17 0540 09/23/17 0540 Imaging Last Impressions Head CT 09/21/172023 Signed Impressions: Service Date/Time: Thursday, September 21, 2017 20:37 - CONCLUSION: Normal examination. Godfrey Marmolejo MD Chest X-Ray 09/21/172023 Signed Impressions: Service Date/Time: Thursday, September 21, 2017 20:52 - CONCLUSION: Linear atelectasis or scarring at the left base. Godfrey Marmolejo MD Objective Remarks GENERAL: Middle-aged black female in no acute distress, alert and oriented. HEENT: PERRLA, EOMI. No scleral icterus or conjunctival pallor. No lid lag or facial droop. CARDIOVASCULAR: Regular rate and rhythm. No obvious murmurs to auscultation. No chest tenderness to palpation. RESPIRATORY: No obvious rhonchi or wheezing. Clear to auscultation. Breath sounds equal bilaterally. GASTROINTESTINAL: Abdomen soft, non-tender, nondistended. BS normal. MUSCULOSKELETAL: Extremities without clubbing, cyanosis, or edema. No obvious deformities. NEUROLOGICAL: Awake, alert, confused. No focal neurologic deficits. Moving both upper and lower extremities spontaneously. A/P Problem List: (1) Encephalopathy ICD Code: G93.40 - Encephalopathy, unspecified (2) SIRS (systemic inflammatory response syndrome) ICD Code: R65.10 - Systemic inflammatory response syndrome (SIRS) of non- infectious origin without acute organ dysfunction Status: Acute (3) UTI (urinary tract infection) ICD Code: N39.0 - Urinary tract infection, site not specified (4) Metastatic cancer ICD Code: C79.9 - Secondary malignant neoplasm of unspecified site (5) KIAN (acute kidney injury) ICD Code: N17.9 - Acute kidney failure, unspecified Assessment and Plan Encephalopathy: Likely secondary to UTI in combination w/ hyperammonemia. CT Head w/ no acute findings, images reviewed by me. Ammonia 39, start Lactulose. SIRS: HR 112, Temp 99.0, WBC 17, Source-UTI. Blood Cultures pending Continue IV Zosyn, follow up cultures. UTI: Recurrent. Continue w/ treatment as above. KIAN: Creatinine 1.02, previously 0.71 on 09/18/17. IVF for hydration, repeat labs in am. Metastatic CA: Metastatic Carcinoma of unknown primary w/ liver and bone metastasis. Following w/ Dr. Camarena, on Chemo. oncology consulted and ff DVT Prophylaxis: SCD/Teds. Pharmacologic contraindication in light of liver mets/coagulopathy. CM for d/c planning as needed. Discussed with the patient, nurse, family at bedside Discharge plan: Pending improvement and clearance by consultants. Possible discharge in 1 or 2 days Blanquita Michaels MD Sep 23, 2017 13:38
[2017-09-23 16:00] VITALS: BP 100/62; PULSE 97; RESP 18; TEMP 99.1; O2SAT 98
[2017-09-23 19:00] VITALS: PULSE 101
[2017-09-23 20:00] VITALS: BP 148/74; PULSE 100; RESP 20; TEMP 99.8; O2SAT 100
[2017-09-24] VITALS (13 sets, daily range): BP systolic 122–158; BP diastolic 58–80; PULSE 85–101; RESP 17–20; TEMP 98.3–99.5; O2SAT 97–100
[2017-09-24] MEDS: SODIUM CHLOR 0.9% 1000 ML INJ 1,000 ML IV SCH ×3 (02:56→22:56)
[2017-09-24] MEDS: PIPERACIL-TAZO 3.375 GM PREMIX 50 ML IV SCH ×4 (05:35→21:50)
[2017-09-24] MEDS ORDERED: ACETAMINOPHEN 325 MG TAB PO PRN (06:00)
[2017-09-24] MEDS ORDERED: diphenhydrAMINE HCL 25 MG CAP PO PRN (06:00)
[2017-09-24] MEDS ORDERED: SODIUM CHLOR 0.9% 250 ML INJ 250 ML IV ONE ×2 (06:00→07:45)
[2017-09-24 06:01] LABS: APTT (PATIENT) 39.2 SEC (24.3-30.1); AUTOMATED NEUTROPHIL # 11.4 TH/MM3 (1.8-7.7); BASOPHIL # 0.1 TH/MM3 (0-0.2); BASOPHIL % 0.5 % (0.0-2.0); EOSINOPHIL # 0.1 TH/MM3 (0-0.4); EOSINOPHIL % 0.4 % (0.0-4.0); HEMATOCRIT 22.1 % (35.0-46.0); INTERNATIONAL NORMALIZED RATIO 1.3 RATIO; LYMPH % 3.9 % (9.0-44.0); LYMPHOCYTE # 0.5 TH/MM3 (1.0-4.8); MEAN CELL VOLUME 93.5 FL (80.0-100.0); MEAN CORPUSCULAR HEMOGLOBIN 30.5 PG (27.0-34.0); MEAN CORPUSCULAR HGB CONC 32.6 % (32.0-36.0); MONO % 0.9 % (0.0-8.0); NEUT % 94.3 % (16.0-70.0); PLATELET COUNT 45 TH/MM3 (150-450); PROTHROMBIN TIME - PATIENT 14.5 SEC (9.8-11.6); RED BLOOD COUNT 2.37 MIL/MM3 (4.00-5.30); RED CELL DISTRIBUTION WIDTH 23.2 % (11.6-17.2); WHITE BLOOD COUNT 12.1 TH/MM3 (4.0-11.0)
[2017-09-24 06:08] LABS: HEMO FLAGS AUTO DIFF
[2017-09-24 06:26] LABS: POTASSIUM 3.3 MEQ/L (3.5-5.1)
[2017-09-24 07:49] LABS: PLATELET ESTIMATE SMEAR LOW (NORMAL); PLATELET MORPHOLOGY NORMAL (NORMAL); SCAN/DIFF AUTO DIFF CONFIRMED; TEARDROP RBCS 1+ (NORMAL)
[2017-09-24] MEDS: SODIUM CHLORIDE 0.9% FLUSH 10 ML FLUSH IV FLUSH SCH ×2 (08:01→21:51)
[2017-09-24] MEDS: LACTULOSE SYRUP 20 GM/30 ML CUP PO SCH ×3 (08:02→17:28)
[2017-09-24] MEDS: DOCUSATE SODIUM 50 MG/SENNA 8.6 MG TAB PO SCH ×2 (08:02→21:00)
--- NOTE | 2017-09-24 11:20 | HHI.PR ---
Subjective Remarks In bed appears in nad. She is more alert and oriented today. No fever or chills. No chest pain or sob. Feels tired. No n/v/d/c. Objective Vitals Vital Signs Date Time Temp Pulse Resp B/P (MAP) Pulse Ox O2 Delivery O2 Flow Rate FiO2 09/24/17 10:19 99.0 89 18 138/64 100 09/24/17 09:37 99.0 89 18 122/58 99 09/24/17 09:23 98.5 95 18 123/68 99 09/24/17 09:10 98.3 100 20 158/80 99 09/24/17 08:23 99.2 96 18 150/68 (95) 99 09/24/17 04:00 98.6 88 20 128/59 (82) 99 09/24/17 00:00 99.0 90 20 134/65 (88) 100 09/23/17 20:00 99.8 100 20 148/74 (98) 100 09/23/17 19:00 101 09/23/17 16:00 99.1 97 18 100/62 (75) 98 09/23/17 12:00 97.6 88 18 159/72 (101) 97 I/O 09/23/17 09/23/17 09/23/17 09/24/17 09/24/17 09/24/17 07:00 15:00 23:00 07:00 15:00 23:00 Intake Total 100 ml 1290 ml 300 ml Balance 100 ml 1290 ml 300 ml Intake Oral 240 ml IV Total 100 ml 1050 ml Blood Product IV Normal Saline Flush 300 ml # Voids 1 4 1 2 # Bowel Movements 1 2 2 Result Diagram: 09/24/17 0535 09/24/17 0535 Imaging Last Impressions Head CT 09/21/172023 Signed Impressions: Service Date/Time: Thursday, September 21, 2017 20:37 - CONCLUSION: Normal examination. Godfrey Marmolejo MD Chest X-Ray 09/21/172023 Signed Impressions: Service Date/Time: Thursday, September 21, 2017 20:52 - CONCLUSION: Linear atelectasis or scarring at the left base. Godfrey Marmolejo MD Objective Remarks GENERAL: Middle-aged black female in no acute distress, alert and oriented. HEENT: PERRLA, EOMI. No scleral icterus or conjunctival pallor. No lid lag or facial droop. CARDIOVASCULAR: Regular rate and rhythm. No obvious murmurs to auscultation. No chest tenderness to palpation. RESPIRATORY: No obvious rhonchi or wheezing. Clear to auscultation. Breath sounds equal bilaterally. GASTROINTESTINAL: Abdomen soft, non-tender, nondistended. BS normal. MUSCULOSKELETAL: Extremities without clubbing, cyanosis, or edema. No obvious deformities. NEUROLOGICAL: Awake, alert, confused. No focal neurologic deficits. Moving both upper and lower extremities spontaneously. A/P Problem List: (1) Encephalopathy ICD Code: G93.40 - Encephalopathy, unspecified (2) SIRS (systemic inflammatory response syndrome) ICD Code: R65.10 - Systemic inflammatory response syndrome (SIRS) of non- infectious origin without acute organ dysfunction Status: Acute (3) UTI (urinary tract infection) ICD Code: N39.0 - Urinary tract infection, site not specified (4) Metastatic cancer ICD Code: C79.9 - Secondary malignant neoplasm of unspecified site (5) KIAN (acute kidney injury) ICD Code: N17.9 - Acute kidney failure, unspecified Assessment and Plan Encephalopathy: Resolved.Likely secondary to UTI in combination w/ hyperammonemia. CT Head w/ no acute findings, images reviewed by me. Ammonia 39, start Lactulose. SIRS: HR 112, Temp 99.0, WBC 17, Source-UTI. Urine cultures negative. Blood Cultures are NTD DC IV Zosyn. Anemia: HGB 7.[address] Camarena oncology ff as well. Monitor h/H and transfuse as indicated. UTI: as above. KIAN: Creatinine 1.02, previously 0.71 on 09/18/17. IVF for hydration, repeat labs in am. Metastatic CA: Metastatic Carcinoma of unknown primary w/ liver and bone metastasis. Following w/ Dr. Camarena, on Chemo. oncology consulted and ff DVT Prophylaxis: SCD/Teds. Pharmacologic contraindication in light of liver mets/coagulopathy. CM for d/c planning as needed. Discussed with the patient, nurse, family at bedside Discharge plan: Pending improvement and clearance by consultants. Possible discharge tomorrow if cleared by Dr Camarena oncology Blanquita Michaels MD Sep 24, 2017 11:20
[2017-09-24] MEDS ORDERED: MAGNESIUM OXIDE 400 MG TAB PO ONE (12:00)
[2017-09-24] MEDS ORDERED: POTASSIUM BICARBONATE 25 MEQ EFFERVESCENT TAB PO ONE (12:00)
--- NOTE | 2017-09-24 12:35 | PD.ONC.PN ---
Subjective Subjective Remarks Afebrile overnight. Patient resting in bed. Feeling much better today. Wants to have telemetry removed. Wants to take a shower. HOping to get out of the hospital before thanksgiving. Objective Data Date Time Temp Pulse Resp B/P (MAP) Pulse Ox O2 Delivery O2 Flow Rate FiO2 09/24/17 12:22 85 09/24/17 11:30 98.8 93 18 146/80 99 09/24/17 10:19 99.0 89 18 138/64 100 09/24/17 09:37 99.0 89 18 122/58 99 09/24/17 09:23 98.5 95 18 123/68 99 09/24/17 09:10 98.3 100 20 158/80 99 09/24/17 08:23 99.2 96 18 150/68 (95) 99 09/24/17 04:00 98.6 88 20 128/59 (82) 99 09/24/17 00:00 99.0 90 20 134/65 (88) 100 09/23/17 20:00 99.8 100 20 148/74 (98) 100 09/23/17 19:00 101 09/23/17 16:00 99.1 97 18 100/62 (75) 98 09/24/17 09/24/17 09/24/17 07:00 15:00 23:00 Intake Total 700 ml Balance 700 ml Result Diagram: 09/24/17 0535 09/24/17 0535 Laboratory Results Laboratory Tests Test 09/23/17 13:43 09/24/17 05:35 Fibrinogen 436 mg/dL 392 mg/dL White Blood Count 12.1 TH/MM3 Red Blood Count 2.37 MIL/MM3 Hemoglobin 7.2 GM/DL Hematocrit 22.1 % Mean Corpuscular Volume 93.5 FL Mean Corpuscular Hemoglobin 30.5 PG Mean Corpuscular Hemoglobin Concent 32.6 % Red Cell Distribution Width 23.2 % Platelet Count 45 TH/MM3 Mean Platelet Volume 9.0 FL Neutrophils (%) (Auto) 94.3 % Lymphocytes (%) (Auto) 3.9 % Monocytes (%) (Auto) 0.9 % Eosinophils (%) (Auto) 0.4 % Basophils (%) (Auto) 0.5 % Neutrophils # (Auto) 11.4 TH/MM3 Lymphocytes # (Auto) 0.5 TH/MM3 Monocytes # (Auto) 0.1 TH/MM3 Eosinophils # (Auto) 0.1 TH/MM3 Basophils # (Auto) 0.1 TH/MM3 CBC Comment AUTO DIFF Differential Comment AUTO DIFF CONFIRMED Platelet Estimate LOW Platelet Morphology Comment NORMAL Tear Drop Cells 1+ Prothrombin Time 14.5 SEC Prothromb Time International Ratio 1.3 RATIO Activated Partial Thromboplast Time 39.2 SEC Blood Urea Nitrogen 7 MG/DL Creatinine 0.62 MG/DL Random Glucose 94 MG/DL Calcium Level 8.2 MG/DL Sodium Level 141 MEQ/L Potassium Level 3.3 MEQ/L Chloride Level 109 MEQ/L Carbon Dioxide Level 24.0 MEQ/L Anion Gap 8 MEQ/L Estimat Glomerular Filtration Rate 120 ML/MIN Culture Results Microbiology Date/Time Source Procedure Growth Status 09/21/17 21:05 Blood Peripheral Aerobic Blood Culture - Preliminary NO GROWTH IN 3 DAYS Resulted 09/21/17 21:05 Blood Peripheral Anaerobic Blood Culture - Preliminary NO GROWTH IN 3 DAYS Resulted 09/21/17 21:00 Blood Peripheral Aerobic Blood Culture - Preliminary NO GROWTH IN 3 DAYS Resulted 09/21/17 21:00 Blood Peripheral Anaerobic Blood Culture - Preliminary NO GROWTH IN 3 DAYS Resulted 09/21/17 21:30 Urine Catheterized Urine Urine Culture - Final NO GROWTH IN 48 HOURS. Complete Administered Medications Medications (Trade) Dose Ordered Sig/Amanda Route PRN Reason Start Time Stop Time Status Last Admin Dose Admin Piperacillin Sod/ Tazobactam Sod 50 ml @ 100 mls/hr Q6H IV 09/22/17 05:00 09/24/17 11:46 Sodium Chloride 1,000 ml @ 100 mls/hr Q10H IV 09/22/17 00:56 09/23/17 18:19 Sodium Chloride (NS Flush) 2 ml BID IV FLUSH 09/22/17 09:00 09/23/17 21:00 Oxycodone HCl (Roxicodone) 10 mg Q4H PRN PO PAIN SCALE 6 TO 10 09/22/17 01:00 09/23/17 21:31 Senna/Docusate Sodium (Payal-Colace) 1 tab BID PO 09/22/17 09:00 09/22/17 21:12 Lactulose (Lactulose Liq) 30 ml TID PO 09/22/17 09:00 09/23/17 17:41 Sodium Chloride 250 ml @ 15 mls/hr ONCE ONCE IV 09/24/17 06:00 09/24/17 22:39 09/24/17 07:58 Sodium Chloride 250 ml @ 15 mls/hr ONCE ONCE IV 09/24/17 07:45 09/25/17 00:24 09/24/17 07:45 Objective Remarks GENERAL: Pleasant middle aged female sitting up in bed in nad. SKIN: Warm and dry. HEAD: Normocephalic. EYES: No injection or drainage. NECK: Supple, trachea midline. CARDIOVASCULAR: Regular rate and rhythm RESPIRATORY: Breath sounds equal bilaterally. No accessory muscle use. GASTROINTESTINAL: Abdomen soft, non-tender, nondistended. EXTREMITIES: No cyanosis NEUROLOGICAL: awake and alert, normal speech. Assessment/Plan Problem List: (1) Metastatic carcinoma involving bone with unknown primary site ICD Codes: C79.51 - Secondary malignant neoplasm of bone; C80.1 - Malignant ( primary) neoplasm, unspecified Plan: --has progressed disease on multiple lines of chemotherapy. -- Most recently on single-agent Adriamycin with a lot of toxicity. (2) Anemia due to antineoplastic chemotherapy ICD Codes: D64.81 - Anemia due to antineoplastic chemotherapy; T45.1X5A - Adverse effect of antineoplastic and immunosuppressive drugs, initial encounter (3) thrombocytopenia due to chemotherapy (4) UTI (urinary tract infection) ICD Codes: N39.0 - Urinary tract infection, site not specified Assessment 56y/o female with metastatic poorly differentiated carcinoma of unknown primary with liver and bony metastatic disease admitted with increasing confusion. h/o Hypercholesterolemia. Recurrent urinary tract infection. Hypertension. Anxiety. Arthritis. Plan 1. give 1 unit pRBC 2. monitor CBC 3. d/c telemetry 4. okay to shower 5. If patient remains afebrile she could be discharged home tomorrow if cleared by other specialties. Attending Statement The exam, history, and the medical decision-making described in the above note were completed with the assistance of the mid-level provider. I reviewed and agree with the findings presented. I attest that I had a htkg-to-wipy encounter with the patient on the same day, and personally performed and documented my assessment and findings in the medical record. Feeling better. Less confused. No significant abdominal pain. Counts are nadiring. Had Neulasta after last cycle of chemotherapy. Continue supportive care. Hopefully can d/c home if remains stable. Ashlee Wilhelm Sep 24, 2017 12:35 Franky Camarena MD Sep 24, 2017 16:21
[2017-09-25] VITALS: BP 148/83; PULSE 93; RESP 20; TEMP 98.6; O2SAT 98
[2017-09-25 04:00] VITALS: BP 134/73; PULSE 99; RESP 20; TEMP 98.6; O2SAT 100
[2017-09-25] MEDS: PIPERACIL-TAZO 3.375 GM PREMIX 50 ML IV SCH (05:09)
[2017-09-25 07:23] LABS: AUTOMATED NEUTROPHIL # 8.3 TH/MM3 (1.8-7.7); BASOPHIL # 0.1 TH/MM3 (0-0.2); BASOPHIL % 0.6 % (0.0-2.0); EOSINOPHIL % 0.5 % (0.0-4.0); HEMATOCRIT 23.1 % (35.0-46.0); LYMPH % 6.7 % (9.0-44.0); LYMPHOCYTE # 0.6 TH/MM3 (1.0-4.8); MEAN CELL VOLUME 92.6 FL (80.0-100.0); MEAN CORPUSCULAR HEMOGLOBIN 31.9 PG (27.0-34.0); MEAN CORPUSCULAR HGB CONC 34.5 % (32.0-36.0); MONO % 1.2 % (0.0-8.0); PLATELET COUNT 22 TH/MM3 (150-450); RED CELL DISTRIBUTION WIDTH 21.8 % (11.6-17.2); WHITE BLOOD COUNT 9.2 TH/MM3 (4.0-11.0)
[2017-09-25 07:24] LABS: HEMO FLAGS AUTO DIFF
[2017-09-25 07:55] LABS: BICARBONATE 23.7 MEQ/L (21.0-32.0); MAGNESIUM 1.7 MG/DL (1.5-2.5); POTASSIUM 3.5 MEQ/L (3.5-5.1)
[2017-09-25 08:00] VITALS: BP 150/74; PULSE 94; RESP 18; TEMP 98.6; O2SAT 99
[2017-09-25] MEDS ORDERED: PERI PO (08:16)
[2017-09-25] MEDS ORDERED: FERR325T18 PO (08:16)
--- NOTE | 2017-09-25 08:16 | HHI.DS ---
Discharge Summary Admission Date Sep 22, 2017 at 00:54 Discharge Date: Sep 25, 2017 Admitting Diagnosis SIRS/altered mental status (1) Encephalopathy ICD Code: G93.40 - Encephalopathy, unspecified (2) SIRS (systemic inflammatory response syndrome) ICD Code: R65.10 - Systemic inflammatory response syndrome (SIRS) of non- infectious origin without acute organ dysfunction Status: Acute (3) UTI (urinary tract infection) ICD Code: N39.0 - Urinary tract infection, site not specified (4) Metastatic cancer ICD Code: C79.9 - Secondary malignant neoplasm of unspecified site (5) KIAN (acute kidney injury) ICD Code: N17.9 - Acute kidney failure, unspecified Procedures none Brief History - From Admission This is a 56-year-old female with a PMH of Metastatic Adenocarcinoma w/ Mets to Liver/Bone, HTN, Anxiety and Hyperlipidemia who was brought to the ER by Daughter secondary to increased confusion x2-3 days. Currently on Chemo, following w/ Dr. Puga. Daughter reports similar symptoms in the past at which time pt had UTI. No reported fever, chills. On arrival, BP 114/59, HR 128, O2 sat 95% on RA, Temp 99.0. He sees 17.6. Creatinine 1.02, produces 0.71 . Ammonia 39. Troponin negative. INR 1.2. UA positive. Alcohol negative. Urine Drug Screen positive for Opiates and Benzo. CXR with linear atelectasis. CT Head normal. S/p Blood Cultures and Zosyn in ER CBC/BMP: 09/25/17 0645 09/25/17 0645 Significant Findings Laboratory Tests Test 09/23/17 05:40 09/23/17 13:43 09/24/17 05:35 09/25/17 06:45 White Blood Count 14.7 TH/MM3 (4.0-11.0) 12.1 TH/MM3 (4.0-11.0) Red Blood Count 2.50 MIL/MM3 (4.00-5.30) 2.37 MIL/MM3 (4.00-5.30) 2.50 MIL/MM3 (4.00-5.30) Hemoglobin 7.5 GM/DL (11.6-15.3) 7.2 GM/DL (11.6-15.3) 8.0 GM/DL (11.6-15.3) Hematocrit 23.0 % (35.0-46.0) 22.1 % (35.0-46.0) 23.1 % (35.0-46.0) Red Cell Distribution Width 23.7 % (11.6-17.2) 23.2 % (11.6-17.2) 21.8 % (11.6-17.2) Platelet Count 72 TH/MM3 (150-450) 45 TH/MM3 (150-450) 22 TH/MM3 (150-450) Neutrophils (%) (Auto) 94.2 % (16.0-70.0) 94.3 % (16.0-70.0) 91.0 % (16.0-70.0) Lymphocytes (%) (Auto) 4.1 % (9.0-44.0) 3.9 % (9.0-44.0) 6.7 % (9.0-44.0) Neutrophils # (Auto) 13.8 TH/MM3 (1.8-7.7) 11.4 TH/MM3 (1.8-7.7) 8.3 TH/MM3 (1.8-7.7) Lymphocytes # (Auto) 0.6 TH/MM3 (1.0-4.8) 0.5 TH/MM3 (1.0-4.8) 0.6 TH/MM3 (1.0-4.8) Platelet Estimate LOW (NORMAL) LOW (NORMAL) Tear Drop Cells 1+ (NORMAL) 1+ (NORMAL) Prothrombin Time 13.9 SEC (9.8-11.6) 14.5 SEC (9.8-11.6) Albumin 1.9 GM/DL (3.4-5.0) Calcium Level 8.4 MG/DL (8.5-10.1) 8.2 MG/DL (8.5-10.1) 8.4 MG/DL (8.5-10.1) Alkaline Phosphatase 128 U/L (45-117) Aspartate Amino Transf (AST/SGOT) 63 U/L (15-37) Total Bilirubin 1.1 MG/DL (0.2-1.0) Chloride Level 112 MEQ/L (98-107) 109 MEQ/L (98-107) Fibrinogen 436 mg/dL (227-377) 392 mg/dL (227-377) Activated Partial Thromboplast Time 39.2 SEC (24.3-30.1) Potassium Level 3.3 MEQ/L (3.5-5.1) Imaging Last Impressions Head CT 09/21/172023 Signed Impressions: Service Date/Time: Thursday, September 21, 2017 20:37 - CONCLUSION: Normal examination. Godfrey Marmolejo MD Chest X-Ray 09/21/172023 Signed Impressions: Service Date/Time: Thursday, September 21, 2017 20:52 - CONCLUSION: Linear atelectasis or scarring at the left base. Godfrey Marmolejo MD PE at Discharge GENERAL: Middle-aged black female in no acute distress, alert and oriented. HEENT: PERRLA, EOMI. No scleral icterus or conjunctival pallor. No lid lag or facial droop. CARDIOVASCULAR: Regular rate and rhythm. No obvious murmurs to auscultation. No chest tenderness to palpation. RESPIRATORY: No obvious rhonchi or wheezing. Clear to auscultation. Breath sounds equal bilaterally. GASTROINTESTINAL: Abdomen soft, non-tender, nondistended. BS normal. MUSCULOSKELETAL: Extremities without clubbing, cyanosis, or edema. No obvious deformities. NEUROLOGICAL: Awake, alert, confused. No focal neurologic deficits. Moving both upper and lower extremities spontaneously. Pt update on day of discharge She is in bed appears in not acute distress. Says she had some diarrhea earlier today. No nausea or vomiting. Denies chest pain or shortness of breath or lightheadedness. Feels better and wants to go home. Family at bedside as well. Hospital Course Encephalopathy: Resolved.Likely secondary to UTI in combination w/ hyperammonemia. CT Head w/ no acute findings, images reviewed by me. Ammonia 39, start Lactulose. SIRS: HR 112, Temp 99.0, WBC 17, Source-UTI. Urine cultures negative. Blood Cultures are NTD DC IV Zosyn. Anemia: HGB 7.[address] Puga oncology ff as well. Monitor h/H and transfuse as indicated. H&H stable. Follow-up as outpatient with Dr. puga UTI: as above. KIAN: Creatinine 1.02, previously 0.71 on 09/18/17. Received IVF for hydration , tolerates by mouth encourage by mouth hydration. Metastatic CA: Metastatic Carcinoma of unknown primary w/ liver and bone metastasis. Following w/ Dr. Puga, on Chemo. oncology consulted and ff follow- up as outpatient with Dr. puga. DVT Prophylaxis: SCD/Teds. Pharmacologic contraindication in light of liver mets/coagulopathy. CM for d/c planning as needed. Discussed with the patient, nurse, family at bedside The patient improved, she is discharged home in stable condition to follow-up with PCP in consultants as outpatient. Pt Condition on Discharge: Stable Discharge Disposition: Disch w/ Home Health Serv Discharge Time: > 30 minutes Discharge Instructions DIET: Follow Instructions for: Heart Healthy Diet Activities you can perform: Regular-No Restrictions Follow up Referrals: Appointment for Follow Up Oncology - 1 Week with Franky Puga MD PCP Follow-up - 2-3 Days PCP Follow-up New Medications: Ferrous Sulfate (Ferrous Sulfate) 325 Mg (65 Mg Iron) Tablet 325 MG PO DAILY for Nutritional Supplement, #30 TAB 0 Refills Lactobacillus Acidophilus (Lactinex) 1 Chew 1 TAB CHEW DAILY for Nutritional Supplement, #30 TAB 0 Refills Oxycodone (Oxycodone) 5 Mg Cap 5 MG PO Q6H PRN for PAIN, #20 CAP 0 Refills Sennosides-Docusate Sodium (Gnp Senna Plus 8.6-50 mg) 8.6 Mg-50 Mg Tab 1 TAB PO BID PRN for constipation, #60 TAB Continued Medications: Alprazolam (Alprazolam) 1 Mg Tab 1 MG PO BID PRN for ANXIETY, TAB 0 Refills Escitalopram (Lexapro) 10 Mg Tab 10 MG PO DAILY, #30 TAB 0 Refills Fentanyl Patch 72 HR (Fentanyl Patch 72 HR) 50 Mcg/Hr Patch 50 MCG T-DERMAL Q72H for Pain Management, #10 PATCH 0 Refills Remove old patch when new one placed. Pantoprazole (Pantoprazole) 40 Mg Tab 40 MG PO DAILY for Reflux, #30 TAB 0 Refills Blanquita Michaels MD Sep 25, 2017 08:16
--- NOTE | 2017-09-25 08:16 | HHI.FF ---
Face to Face Verification Diagnosis: (1) Metastatic carcinoma involving bone with unknown primary site (2) Anemia due to antineoplastic chemotherapy (3) KIAN (acute kidney injury) (4) Metastatic cancer (5) Encephalopathy (6) SIRS (systemic inflammatory response syndrome) (7) Metastatic carcinoma involving liver with unknown primary site Physical Therapy Order: Evaluate and Treat Home Health Nursing Order: Medical education Signs/symptoms of disease process Medication education-adverse effect Nursing assessment with vital signs I have seen patient Charlie Klein on 09/25/17. My clinical findings support the need for the requested home health care services because: Ltd mobility - disease progression I certify that my clinical findings support that this patient is homebound because: Post-op weakness Blanquita Michaels MD Sep 25, 2017 08:16
[2017-09-25] MEDS ORDERED: OXYC1CAP PO (08:18)
[2017-09-25] MEDS: DOCUSATE SODIUM 50 MG/SENNA 8.6 MG TAB PO SCH (08:21)
[2017-09-25] MEDS: LACTULOSE SYRUP 20 GM/30 ML CUP PO SCH (08:21)
[2017-09-25 08:22] LABS: SCAN/DIFF AUTO DIFF CONFIRMED
[2017-09-25] MEDS: SODIUM CHLORIDE 0.9% FLUSH 10 ML FLUSH IV FLUSH SCH (08:22)
[2017-09-25] MEDS ORDERED: LACTCHW3 CHEW (09:22)
[2017-09-25] MEDS ORDERED: LACTOBACILLUS ACIDOPHILUS TAB PO ONE (09:30)
[2017-09-25] MEDS ORDERED: LOPERAMIDE HCL SOLN 2 MG/10 ML UDC PO ONE (09:30)
[2017-09-25] MEDS ORDERED: LOPERAMIDE HCL SOLN 2 MG/10 ML UDC PO PRN (09:30)
[2017-09-25] MEDS ORDERED: LACTOBACILLUS ACIDOPHILUS TAB PO SCH (13:00)
--- NOTE | 2017-09-25 15:01 | PD.ONC.PN ---
Subjective Subjective Remarks Late entry. Pt is feeling much better. Wanted to go home. No CP/SOB. No abdominal pain. Objective Data Date Time Temp Pulse Resp B/P (MAP) Pulse Ox O2 Delivery O2 Flow Rate FiO2 09/25/17 08:00 98.6 94 18 150/74 (99) 99 09/25/17 04:00 98.6 99 20 134/73 (93) 100 09/25/17 00:00 98.6 93 20 148/83 (104) 98 09/24/17 22:17 88 09/24/17 20:00 99.2 101 20 147/79 (101) 97 09/24/17 17:02 99.5 95 17 140/67 (91) 99 09/25/17 09/25/17 09/25/17 07:00 15:00 23:00 Intake Total 671 ml Balance 671 ml Result Diagram: 09/25/17 0645 09/25/17 0645 Laboratory Results Laboratory Tests Test 09/25/17 06:45 White Blood Count 9.2 TH/MM3 Red Blood Count 2.50 MIL/MM3 Hemoglobin 8.0 GM/DL Hematocrit 23.1 % Mean Corpuscular Volume 92.6 FL Mean Corpuscular Hemoglobin 31.9 PG Mean Corpuscular Hemoglobin Concent 34.5 % Red Cell Distribution Width 21.8 % Platelet Count 22 TH/MM3 Mean Platelet Volume 9.9 FL Neutrophils (%) (Auto) 91.0 % Lymphocytes (%) (Auto) 6.7 % Monocytes (%) (Auto) 1.2 % Eosinophils (%) (Auto) 0.5 % Basophils (%) (Auto) 0.6 % Neutrophils # (Auto) 8.3 TH/MM3 Lymphocytes # (Auto) 0.6 TH/MM3 Monocytes # (Auto) 0.1 TH/MM3 Eosinophils # (Auto) 0.0 TH/MM3 Basophils # (Auto) 0.1 TH/MM3 CBC Comment AUTO DIFF Differential Comment AUTO DIFF CONFIRMED Blood Urea Nitrogen 10 MG/DL Creatinine 0.52 MG/DL Random Glucose 83 MG/DL Calcium Level 8.4 MG/DL Magnesium Level 1.7 MG/DL Sodium Level 139 MEQ/L Potassium Level 3.5 MEQ/L Chloride Level 107 MEQ/L Carbon Dioxide Level 23.7 MEQ/L Anion Gap 8 MEQ/L Estimat Glomerular Filtration Rate 147 ML/MIN Objective Remarks GENERAL: Well-nourished, well-developed patient. SKIN: Warm and dry. HEAD: Normocephalic. EYES: No scleral icterus. No injection or drainage. NECK: Supple, trachea midline. No JVD or lymphadenopathy. LYMPHATIC: No adenopathy. CARDIOVASCULAR: Regular rate and rhythm without murmurs. RESPIRATORY: Breath sounds equal bilaterally. No accessory muscle use. GASTROINTESTINAL: Abdomen soft, non-tender, nondistended. EXTREMITIES: No cyanosis, or edema. MUSCULOSKELETAL: Adequate muscle tone. NEUROLOGICAL: No obvious focal deficit. Awake, alert, and oriented x3. PSYCHIATRIC: Appropriate mood and affect; insight and judgment normal. Assessment/Plan Problem List: (1) Metastatic carcinoma involving bone with unknown primary site ICD Codes: C79.51 - Secondary malignant neoplasm of bone; C80.1 - Malignant ( primary) neoplasm, unspecified Plan: --has progressed disease on multiple lines of chemotherapy. -- Most recently on single-agent Adriamycin with a lot of toxicity. (2) Anemia due to antineoplastic chemotherapy ICD Codes: D64.81 - Anemia due to antineoplastic chemotherapy; T45.1X5A - Adverse effect of antineoplastic and immunosuppressive drugs, initial encounter Plan: Hgb stable. (3) thrombocytopenia due to chemotherapy Plan: Due to chemotherapy. Platelet trended lower but no bleeding. (4) UTI (urinary tract infection) ICD Codes: N39.0 - Urinary tract infection, site not specified Assessment 56y/o female with metastatic poorly differentiated carcinoma of unknown primary with liver and bony metastatic disease admitted with increasing confusion. h/o Hypercholesterolemia. Recurrent urinary tract infection. Hypertension. Anxiety. Arthritis. Plan 1. monitor CBC 2. F/u oncology clinic Franky Camarena MD Sep 25, 2017 15:01
--- NOTE | 2017-09-27 15:29 | PQ ---
Physician Query Response Document PATIENT: LUIS ENRIQUE PERKINS : 1960 ADMIT DATE: 09/22/2017 12:54 AM DISCH DATE: 09/25/2017 10:00 AM RESPONDING PROVIDER #: [email or web address] QUERY TEXT: Clarification of Clinical Diagnostic Findings Please clarify documentation or clinical relevance for the clinical / diagnostic findings or whether those are insignificant or unable to be further specified. Please clarify. Did this patient have 1)SIRS/noninfectious origin without organ failure 2)SIRS/ with infectious source(UTI0 with organ dysfunction(acute Renal failure)SEPSIS The patient's Clinical Indicators include: Dr. Michaels, please clarify documentation of SIRS SIRS of non infectious origin is in your documentation. WBC ON ADMISSION WAS 17.6/ HR 112 Patient documentation in discharge summary documents UTI(infectious source?). Documentation also shows Acute Renal Failure(organ dysfunction?) Please review the question below and answer to the best of your ability. THANK YOU VERY MUCH Query created by: Marquis Willoughby on 09/26/2017 11:54 AM RESPONSE TEXT: Patient with sepsis leukocytosis, tachycardia , source is UTI - Ecoli Electronically signed by: Blanquita Michaels MD 09/27/2017 3:26 PM
== END 2017-09-25 10:00 | disposition home health service (06) | DRG 871 ==
LOC: NEPE 20:13 → NEDA 09-22 00:54 → N05B 09-22 02:47
PROVIDERS: ADMIT Hospitalist; ATTEND Hospitalist
PROC: 30233N1 Transfusion of Nonautologous Red Blood Cells into Peripheral Vein, Percutaneous Approach (ICD-10-PCS; principal; 2017-09-24)
DX: A41.9 Sepsis, unspecified organism (principal); G93.40 Encephalopathy, unspecified; N17.9 Acute kidney failure, unspecified; C78.7 Secondary malignant neoplasm of liver and intrahepatic bile duct; C79.51 Secondary malignant neoplasm of bone; D68.9 Coagulation defect, unspecified; N39.0 Urinary tract infection, site not specified; E72.20 Disorder of urea cycle metabolism, unspecified; J98.11 Atelectasis; C80.1 Malignant (primary) neoplasm, unspecified; I10 Essential (primary) hypertension; M19.90 Unspecified osteoarthritis, unspecified site; E78.00 Pure hypercholesterolemia, unspecified; F41.9 Anxiety disorder, unspecified; Z92.3 Personal history of irradiation; Z82.49 Family history of ischemic heart disease and other diseases of the circulatory system; Z87.440 Personal history of urinary (tract) infections; L65.9 Nonscarring hair loss, unspecified; F17.200 Nicotine dependence, unspecified, uncomplicated; D69.59 Other secondary thrombocytopenia; D64.81 Anemia due to antineoplastic chemotherapy; T45.1X5A Adverse effect of antineoplastic and immunosuppressive drugs, initial encounter
CPT/HCPCS: 36430; 70450; 71010; 80048; 80053; 80307; 81001; 82140; 82550; 83735; 84443; 84484; 85025; 85384; 85610; 85730; 86850; 86900; 86901; 86920; 87040; 87086; 93005; 96365; 96366; J1630; J2405; J2543; J7030; J7050; P9016

== ENCOUNTER 2017-10-15 08:00 | Inpatient (IN) | payer OTHER, MEDICARE ==
[~2017-10-15] VITALS: Ht 165.1 cm; Wt 86.0 kg
[~2017-10-15 08:00] MED LIST changes: +FERR325T18 PO; -KLORCONEF PO; +LACTCHW3 CHEW; -LIDO1CRE31 TOPICAL; +OXYC1CAP PO; -OXYC30TA PO; +PERI PO
[2017-10-15 08:03] VITALS: BP 137/63; PULSE 103; RESP 18; TEMP 98.4; O2SAT 96
--- NOTE | 2017-10-15 09:46 | RADRPT ---
EXAM DATE/TIME: 10/15/2017 09:28 [facility] COMPARISON: No previous studies available for comparison. INDICATIONS : Confusion for 3 days RADIATION DOSE: 40.13 CTDIvol (mGy) MEDICAL HISTORY : Carcinoma, bone. Hypertension. SURGICAL HISTORY : Hysterectomy. ENCOUNTER: Initial ACUITY: 3 days PAIN SCALE: 0/10 LOCATION: cranial TECHNIQUE: Multiple contiguous axial images were obtained of the head. Using automated exposure control and adj ustment of the mA and/or kV according to patient size, radiation dose was kept as low as reasonably a chievable to obtain optimal diagnostic quality images. DICOM format image data is available electro nically for review and comparison. FINDINGS: CEREBRUM: The ventricles are normal for age. No evidence of midline shift, mass lesion, hemorrhage or acute in farction. No extra-axial fluid collections are seen. POSTERIOR FOSSA: The cerebellum and brainstem are intact. The 4th ventricle is midline. The cerebellopontine angle i s unremarkable. EXTRACRANIAL: The visualized portion of the orbits is intact. SKULL: The calvaria is intact. No evidence of skull fracture. CONCLUSION: No acute intracranial disease. Brandon Montoya MD on October 15, 2017 at 9:41 Board Certified Radiologist. This report was verified electronically.
[2017-10-15 10:15] LABS: BASOPHIL % 0.3 % (0.0-2.0); EOSINOPHIL # 0.1 TH/MM3 (0-0.4); EOSINOPHIL % 0.4 % (0.0-4.0); HEMATOCRIT 26.6 % (35.0-46.0); LYMPHOCYTE # 1.1 TH/MM3 (1.0-4.8); MEAN CELL VOLUME 98.7 FL (80.0-100.0); MEAN CORPUSCULAR HEMOGLOBIN 31.7 PG (27.0-34.0); MEAN CORPUSCULAR HGB CONC 32.2 % (32.0-36.0); MONO % 18.8 % (0.0-8.0); NEUT % 72.5 % (16.0-70.0); PLATELET COUNT 176 TH/MM3 (150-450); RED CELL DISTRIBUTION WIDTH 23.7 % (11.6-17.2); WHITE BLOOD COUNT 13.8 TH/MM3 (4.0-11.0)
[2017-10-15 10:16] LABS: HEMO FLAGS AUTO DIFF
--- NOTE | 2017-10-15 10:18 | PD ---
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 Said she has been having UTI and acting like this before so wants to have it check out. Said she would put her pants on her head and then put both legs in one pant hole. Pt follows with Dr. Camarena and was recently off chemo because she wanted a break from it. Pt is AAOx3 and denies any fever, chest pain, sob, n/v, focal weakness or numbness or headache. Pt has chronic abdominal pain because of her cancer. Has mets to liver and bone. PFSH Past Medical History Arthritis: Yes Anxiety: Yes Cancer: Yes (LIVER AND BONE METASTASIS, UNKN PRIMARY) Cardiovascular Problems: Yes High Cholesterol: Yes Chemotherapy: Yes Diabetes: No Diminished Hearing: No Gastrointestinal Disorders: Yes Genitourinary: Yes (UTI on admission 08/22/10) Hepatitis: Yes Heparin Induced Thrombocytopen: No Hypertension: Yes Immune Disorder: No Implanted Vascular Access Dvce: Yes Musculoskeletal: Yes Neurologic: Yes (Mild confusion on admission 08/22/17 09/22/17) Reproductive: No Respiratory: No Radiation Therapy: Yes (STATES 9 TREATMENTS TO BACK) Sickle Cell Disease: No Tetanus Vaccination: Unknown Influenza Vaccination: No ?: Not : 2 Para: 2 Past Surgical History Gynecologic Surgery: Yes (Hysterectomy 2006) Hysterectomy: Yes (TOTAL) Other Surgery: Yes Family History Family Myocardial Infarction: Yes Social History Alcohol Use: Yes (OCCASIONALLY BEER AND ALCOHOL) Tobacco Use: Yes Substance Use: No Allergies-Medications (Allergen,Severity, Reaction): Coded Allergies: Iodinated Contrast- Oral and IV Dye (Verified Allergy, Unknown, 10/15/17) morphine (Verified Allergy, Unknown, 10/15/17) Reported Meds & Prescriptions Reported Meds & Active Scripts Active Oxycodone (Oxycodone HCl) 5 Mg Cap 5 Mg PO Q6H PRN Reported Alprazolam 1 Mg Tab 1 Mg PO BID PRN Pantoprazole (Pantoprazole Sodium) 40 Mg Tab 40 Mg PO DAILY Review of Systems Except as stated in HPI: all other systems reviewed are Neg Physical Exam Narrative GENERAL: 56yo F not in distress. SKIN: Focused skin assessment warm/dry. HEAD: Atraumatic. Normocephalic. EYES: Pupils equal and round at 3mm bilaterally. EOMI. ENT: No nasal bleeding or discharge. Mucous membranes pink and moist. NECK: Trachea midline. No JVD. CARDIOVASCULAR: Regular rate and rhythm. No murmur appreciated. RESPIRATORY: No accessory muscle use. Clear to auscultation. Breath sounds equal bilaterally. GASTROINTESTINAL: Abdomen soft, non-tender, nondistended. MUSCULOSKELETAL: No obvious deformities. No clubbing. No cyanosis. No edema. NEUROLOGICAL: Awake and alert. No obvious cranial nerve deficits. Motor grossly within normal limits. Normal speech. PSYCHIATRIC: Appropriate mood and affect; insight and judgment normal. Data Data Last Documented VS Vital Signs Date Time Temp Pulse Resp B/P (MAP) Pulse Ox O2 Delivery O2 Flow Rate FiO2 10/15/17 12:30 88 16 128/65 (86) 98 Room Air 10/15/17 08:03 98.4 Orders Orders Ammonia (10/15/17 09:11) Complete Blood Count With Diff (10/15/17 09:11) Comprehensive Metabolic Panel (10/15/17 09:11) Prothrombin Time / Inr (Pt) (10/15/17 09:11) Act Partial Throm Time (Ptt) (10/15/17 09:11) Thyroid Stimulating Hormone (10/15/17 09:11) Urinalysis - C+S If Indicated (10/15/17 09:11) Ct Brain W/O Iv Contrast(Rout) (10/15/17 09:11) Urine Culture (10/15/17 09:35) Ceftriaxone Inj (Rocephin Inj) (10/15/17 10:45) Calcium Gluconate Inj (Calcium Gluconate (10/15/17 13:00) Potassium Chloride (Kcl) (10/15/17 13:15) Lactulose Liq (Lactulose Liq) (10/15/17 13:15) Admit To Inpatient (10/15/17 ) Vital Signs (Adult) Q4H (10/15/17 13:54) Activity Oob With Assistance (10/15/17 13:54) Fuse Cup Expander / Telemetry .CONTINUOUS (10/15/17 13:54) Diet Regular Basic (10/15/17 Lunch) Sodium Chlor 0.9% 1000 Ml Inj (Ns 1000 M (10/15/17 13:54) Sodium Chloride 0.9% Flush (Ns Flush) (10/15/17 14:00) Sodium Chloride 0.9% Flush (Ns Flush) (10/15/17 21:00) Ondansetron Inj (Zofran Inj) (10/15/17 14:00) Comprehensive Metabolic Panel (10/16/17 06:00) Complete Blood Count With Diff (10/16/17 06:00) Scd Bilateral/Knee High RICHELLE.BID (10/15/17 13:54) Morphine Inj (Morphine Inj) (10/15/17 14:00) Morphine Inj (Morphine Inj) (10/15/17 14:00) Naloxone Inj (Narcan Inj) (10/15/17 14:00) Magnesium Hydroxide Liq (Milk Of Magnesi (10/15/17 14:00) Inpatient Certification (10/15/17 ) Admit Order (Ed Use Only) (10/15/17 13:58) Metronidazole 500 Mg Inj (Flagyl 500 Mg (10/15/17 14:00) Ceftriaxone Inj (Rocephin Inj) (10/16/17 10:00) Lactobacillus Acidophilus (Lactinex) (10/15/17 18:00) Ammonia (10/16/17 06:00) Magnesium (Mg) (10/16/17 06:00) Phosphorus (Po4) (10/16/17 06:00) Labs Laboratory Tests Test 10/15/17 09:35 10/15/17 09:50 10/15/17 11:22 Urine Color YELLOW Urine Turbidity HAZY Urine pH 6.0 Urine Specific [place] 1.021 Urine Protein 30 mg/dL Urine Glucose (UA) NEG mg/dL Urine Ketones NEG mg/dL Urine Occult Blood TRACE Urine Nitrite NEG Urine Bilirubin NEG Urine Urobilinogen 2.0 MG/DL Urine Leukocyte Esterase LARGE Urine RBC 62 /hpf Urine WBC 138 /hpf Urine Squamous Epithelial Cells 10 /hpf Urine Bacteria OCC /hpf Urine Mucus FEW /lpf Urine Trichomonas OCC Microscopic Urinalysis Comment CATH-CULTURE IND White Blood Count 13.8 TH/MM3 Red Blood Count 2.70 MIL/MM3 Hemoglobin 8.6 GM/DL Hematocrit 26.6 % Mean Corpuscular Volume 98.7 FL Mean Corpuscular Hemoglobin 31.7 PG Mean Corpuscular Hemoglobin Concent 32.2 % Red Cell Distribution Width 23.7 % Platelet Count 176 TH/MM3 Mean Platelet Volume 9.6 FL Neutrophils (%) (Auto) 72.5 % Lymphocytes (%) (Auto) 8.0 % Monocytes (%) (Auto) 18.8 % Eosinophils (%) (Auto) 0.4 % Basophils (%) (Auto) 0.3 % Neutrophils # (Auto) 10.0 TH/MM3 Lymphocytes # (Auto) 1.1 TH/MM3 Monocytes # (Auto) 2.6 TH/MM3 Eosinophils # (Auto) 0.1 TH/MM3 Basophils # (Auto) 0.0 TH/MM3 CBC Comment AUTO DIFF Differential Total Cells Counted 100 Neutrophils % (Manual) 78 % Band Neutrophils % 1 % Lymphocytes % 7 % Monocytes % 14 % Neutrophils # (Manual) 10.9 TH/MM3 Differential Comment FINAL DIFF MANUAL Platelet Estimate NORMAL Platelet Morphology Comment NORMAL Prothrombin Time 13.1 SEC Prothromb Time International Ratio 1.3 RATIO Activated Partial Thromboplast Time 26.9 SEC Ammonia 51 MCMOL/L Blood Urea Nitrogen 7 MG/DL Creatinine 0.44 MG/DL Random Glucose 72 MG/DL Total Protein 5.8 GM/DL Albumin 1.7 GM/DL Calcium Level 6.7 MG/DL Alkaline Phosphatase 126 U/L Aspartate Amino Transf (AST/SGOT) 48 U/L Alanine Aminotransferase (ALT/SGPT) 6 U/L Total Bilirubin 0.4 MG/DL Sodium Level 145 MEQ/L Potassium Level 3.1 MEQ/L Chloride Level 117 MEQ/L Carbon Dioxide Level 19.0 MEQ/L Anion Gap 9 MEQ/L Estimat Glomerular Filtration Rate 178 ML/MIN Protein Corrected Calcium 7.3 MG/DL Thyroid Stimulating Hormone 3rd Gen 1.150 uIU/ML MDM Medical Decision Making Medical Screen Exam Complete: Yes Emergency Medical Condition: Yes Differential Diagnosis UTI vs. metastatic disease vs. electrolyte abnormality vs. dehydration Narrative Course 56yo F with metastatic disease brought by daughter for altered mental status. Daughter said she has not been acting like herself for 3 days. Last time this happen, she had a UTI. Labs reviewed, leukocytosis at 13.8. H/H low at 8.6/ 26.6 which is baseline. Hypocalcemic with corrected calcium at 7.3. Pt given calcium gluconate 1gm IV. Mild hypokalemia at 3.1, replaced orally. Normal TSH. Ammonia elevated at 51, given lactulose. UA showed large leukocyte. WBC 138. Pt given ceftriaxone. CT brain negative. Since pt has altered mental status secondary to UTI, will admit for IV antibiotics. Meets SIRS criteria. Discussed with Dr. Her and accepted to his service. Diagnosis Primary Impression: UTI (urinary tract infection) Qualified Codes: N39.0 - Urinary tract infection, site not specified; R31.9 - Hematuria, unspecified Admitting Information Admitting Physician Requests: Admit Scripts Lactobacillus Acidophilus (Acidophilus/l-Sporogenes) 35 Million Cell-25 Million Cell Tab 1 TAB PO TID for Infection, #30 TAB Prov: Lizzy Troncoso DO 10/16/17 Alprazolam (Xanax) 0.25 Mg Tab 0.25 MG PO Q6HR Y for Anxiety, #30 TAB Prov: Lizzy Troncoso DO 10/16/17 Oxycodone HCl/Acetaminophen (Oxycodon-Acetaminophen 7.5-325) 7.5 Mg-325 Mg Tablet 1 TAB PO Q6H Y for PAIN SCALE 5 TO 10, #30 TAB Prov: Lizzy Troncoso DO 10/16/17 Marjan Prakash DO Oct 15, 2017 10:18
[2017-10-15 10:22] LABS: APTT (PATIENT) 26.9 SEC (24.3-30.1); INTERNATIONAL NORMALIZED RATIO 1.3 RATIO; PROTHROMBIN TIME - PATIENT 13.1 SEC (9.8-11.6)
[2017-10-15 10:23] LABS: BACTERIA, URINE OCC /hpf; BLOOD, URINE TRACE (NEG); GLUCOSE,URINE NEG (NEG); KETONE, URINE NEG (NEG); MUCUS URINE FEW /lpf (OCC); NITRITE,URINE NEG (NEG); SQUAMOUS EPITHELIAL CELL URINE 10 /hpf (0-5); URINE COLOR YELLOW (YELLW/STRAW)
[2017-10-15 10:24] LABS: COMMENT (UR) CATH-CULTURE IND; CULTURE IF INDICATED CATH CULTURE IND
[2017-10-15] MEDS ORDERED: cefTRIAXone INJ 1,000 MG in SODIUM CHLORIDE 0.9% INJ 100 ML IV ONE (10:45)
[2017-10-15 10:49] LABS: BANDS 1 % (0-6); NEUTROPHIL # MANUAL DIFF 10.9 TH/MM3 (1.8-7.7); PLATELET ESTIMATE SMEAR NORMAL (NORMAL); PLATELET MORPHOLOGY NORMAL (NORMAL); POLYS (SEG NEUTROPHILS) 78 % (16-70); SCAN/DIFF FINAL DIFF MANUAL; WBC DIFF SAMPLE 100
[2017-10-15 12:17] LABS: POTASSIUM 3.1 MEQ/L (3.5-5.1); TOTAL BILIRUBIN ADULT 0.4 MG/DL (0.2-1.0)
[2017-10-15 12:26] LABS: CALCIUM-PROTEIN CORRECTED 7.3 MG/DL (8.5-10.1)
[2017-10-15 12:30] VITALS: BP 128/65; PULSE 88; RESP 16; O2SAT 98
[2017-10-15] MEDS ORDERED: CALCIUM GLUCONATE INJ 1 GM in DEXTROSE 5% IN WATER 100ML INJ 100 ML IV ONE ×2 (13:00)
[2017-10-15] MEDS ORDERED: LACTULOSE SYRUP 20 GM/30 ML CUP PO ONE (13:15)
[2017-10-15] MEDS ORDERED: POTASSIUM CHLORIDE 20 MEQ CONTROLLED RELEASE TAB PO ONE (13:15)
[2017-10-15] MEDS: SODIUM CHLOR 0.9% 1000 ML INJ 1,000 ML IV SCH ×2 (13:54→23:54)
--- NOTE | 2017-10-15 13:55 | HHI.HP ---
[facility] Service [facility] Primary Care Physician Barron Bedoya MD Admission Diagnosis Diagnoses: Travel History International Travel<30 Days: No Contact w/Intl Traveler <30 Da: No Traveled to Known Affected Are: No Sepsis Criteria SIRS Criteria (2 or more): Heart rate over 90, WBC > 55507, < 4000 or > 10% bands Sepsis Criteria (SIRS+source): Infect source susp/known History of Present Illness Mrs. Cowan is a 56-year-old female. 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 She's been getting radiation to her spine and has had numerous bouts of chemotherapy in the past. Presently she's got no recent chemotherapy or radiation. She is brought in by her family secondary to confusion which has been progressive over the past 3 days. In the past she has had recurrent episodes of urinary tract infection with confusion. This is present again today. She also has a mildly elevated ammonia level which could be contributory. No other complaints at this time. She's not had a fever. She does have a high white blood cell count and tachycardia which in addition to her urinary tract infection qualifies her for sepsis. Other findings likely related to her present state are hypokalemia, hypocalcemia, and anemia. Review of Systems Constitutional: DENIES: Diaphoretic episodes, Fever, Chills Eyes: DENIES: Blurred vision, Diplopia, Eye inflammation, Eye pain Ears, nose, mouth, throat: DENIES: Tinnitus, Hearing loss, Vertigo, Nasal discharge Respiratory: DENIES: Apneas, Cough, Snoring, Wheezing, Shortness of breath Cardiovascular: DENIES: Chest pain, Palpitations, Syncope, Dyspnea on Exertion Gastrointestinal: DENIES: Abdominal pain, Black stools, Bloody stools, Constipation, Diarrhea Musculoskeletal: DENIES: Joint pain, Muscle aches, Stiffness, Joint Swelling Integumentary: DENIES: Abnormal pigmentation, Pruritus, Rash, Nail changes Hematologic/lymphatic: DENIES: Bruising, Lymphadenopathy Immunologic/allergic: DENIES: Eczema, Urticaria Neurologic: DENIES: Abnormal gait, Headache, Paresthesias Psychiatric: DENIES: Anxiety, Confusion, Hallucinations Past Family Social History Past Medical History Cancer metastasis to the liver cancer metastasis to the bone/spine next line coronary artery disease History of chemotherapy History of radiation therapy Hyperlipidemia Gen. anxiety disorder Hypertension Hepatitis Past Surgical History Hysterectomy Reported Medications Reported Meds & Active Scripts Active Oxycodone (Oxycodone HCl) 5 Mg Cap 5 Mg PO Q6H PRN Reported Alprazolam 1 Mg Tab 1 Mg PO BID PRN Pantoprazole (Pantoprazole Sodium) 40 Mg Tab 40 Mg PO DAILY Allergies: Coded Allergies: Iodinated Contrast- Oral and IV Dye (Verified Allergy, Unknown, 10/15/17) morphine (Verified Allergy, Unknown, 10/15/17) Family History Myocardial infarction Social History Past history of alcohol use occasionally Past history of smoking No illicit drug abuse history reported Physical Exam Vital Signs Vital Signs Date Time Temp Pulse Resp B/P (MAP) Pulse Ox O2 Delivery O2 Flow Rate FiO2 10/15/17 08:03 98.4 103 18 137/63 (87) 96 Room Air Physical Exam GENERAL: NAD, A&Ox2 HEAD: Normocephalic. NECK: Supple, trachea midline. No lymphadenopathy. EYES: No scleral icterus. No injection or drainage. CARDIOVASCULAR: Regular rate and rhythm without murmurs, gallops, or rubs. RESPIRATORY: Breath sounds equal bilaterally. No accessory muscle use. GASTROINTESTINAL: Abdomen soft, non-tender, nondistended. MUSCULOSKELETAL: No cyanosis, or edema. SKIN: Warm and dry. NEURO: No focal neurological deficitis. Laboratory Laboratory Tests Test 10/15/17 09:35 10/15/17 09:50 10/15/17 11:22 Urine Color YELLOW Urine Turbidity HAZY Urine pH 6.0 Urine Specific [place] 1.021 Urine Protein 30 Urine Glucose (UA) NEG Urine Ketones NEG Urine Occult Blood TRACE Urine Nitrite NEG Urine Bilirubin NEG Urine Urobilinogen 2.0 Urine Leukocyte Esterase LARGE Urine RBC 62 Urine WBC 138 Urine Squamous Epithelial Cells 10 Urine Bacteria OCC Urine Mucus FEW Urine Trichomonas OCC Microscopic Urinalysis Comment CATH-CULTURE IND White Blood Count 13.8 Red Blood Count 2.70 Hemoglobin 8.6 Hematocrit 26.6 Mean Corpuscular Volume 98.7 Mean Corpuscular Hemoglobin 31.7 Mean Corpuscular Hemoglobin Concent 32.2 Red Cell Distribution Width 23.7 Platelet Count 176 Mean Platelet Volume 9.6 Neutrophils (%) (Auto) 72.5 Lymphocytes (%) (Auto) 8.0 Monocytes (%) (Auto) 18.8 Eosinophils (%) (Auto) 0.4 Basophils (%) (Auto) 0.3 Neutrophils # (Auto) 10.0 Lymphocytes # (Auto) 1.1 Monocytes # (Auto) 2.6 Eosinophils # (Auto) 0.1 Basophils # (Auto) 0.0 CBC Comment AUTO DIFF Differential Total Cells Counted 100 Neutrophils % (Manual) 78 Band Neutrophils % 1 Lymphocytes % 7 Monocytes % 14 Neutrophils # (Manual) 10.9 Differential Comment FINAL DIFF MANUAL Platelet Estimate NORMAL Platelet Morphology Comment NORMAL Prothrombin Time 13.1 Prothromb Time International Ratio 1.3 Activated Partial Thromboplast Time 26.9 Ammonia 51 Blood Urea Nitrogen 7 Creatinine 0.44 Random Glucose 72 Total Protein 5.8 Albumin 1.7 Calcium Level 6.7 Alkaline Phosphatase 126 Aspartate Amino Transf (AST/SGOT) 48 Alanine Aminotransferase (ALT/SGPT) 6 Total Bilirubin 0.4 Sodium Level 145 Potassium Level 3.1 Chloride Level 117 Carbon Dioxide Level 19.0 Anion Gap 9 Estimat Glomerular Filtration Rate 178 Protein Corrected Calcium 7.3 Thyroid Stimulating Hormone 3rd Gen 1.150 Date/Time Source Procedure Growth Status 10/15/17 09:35 Urine Catheterized Urine Urine Culture Pending Worksheet Result Diagram: 10/15/17 0950 10/15/17 1122 Caprini VTE Risk Assessment Caprini VTE Risk Assessment: Mod/High Risk (score >= 2) Caprini Risk Assessment Model Point Value = 1 Point Value = 2 Point Value = 3 Point Value = 5 Age 41-60 Minor surgery BMI > 25 kg/m2 Swollen legs Varicose veins or History of unexplained or recurrent spontaneous Oral contraceptives or hormone replacement Sepsis (< 1 month) Serious lung disease, including pneumonia (< 1 month) Abnormal pulmonary function Acute myocardial infarction Congestive heart failure (< 1 month) History of inflammatory bowel disease Medical patient at bed rest Age 61-74 Arthroscopic surgery Major open surgery (> 45 min) Laparoscopic surgery (> 45 min) Malignancy Confined to bed (> 72 hours) Immobilizing plaster cast Central venous access Age >= 75 History of VTE Family history of VTE Factor V Leiden Prothrombin [id number] Lupus anticoagulant Anticardiolipin antibodies Elevated serum homocysteine Heparin-induced thrombocytopenia Other congenital or acquired thrombophilia Stroke (< 1 month) Elective arthroplasty Hip, pelvis, or leg fracture Acute spinal cord injury (< 1 month) Prophylaxis Regimen Total Risk Factor Score Risk Level Prophylaxis Regimen 0-1 Low Early ambulation 2 Moderate Order ONE of the following: *Sequential Compression Device (SCD) *Heparin 5000 units SQ BID 3-4 Higher Order ONE of the following medications: *Heparin 5000 units SQ TID *Enoxaparin/Lovenox 40 mg SQ daily (WT < 150 kg, CrCl > 30 mL/min) *Enoxaparin/Lovenox 30 mg SQ daily (WT < 150 kg, CrCl > 10-29 mL/min) *Enoxaparin/Lovenox 30 mg SQ BID (WT < 150 kg, CrCl > 30 mL/min) AND/OR *Sequential Compression Device (SCD) 5 or more Highest Order ONE of the following medications: *Heparin 5000 units SQ TID (Preferred with Epidurals) *Enoxaparin/Lovenox 40 mg SQ daily (WT < 150 kg, CrCl > 30 mL/min) *Enoxaparin/Lovenox 30 mg SQ daily (WT < 150 kg, CrCl > 10-29 mL/min) *Enoxaparin/Lovenox 30 mg SQ BID (WT < 150 kg, CrCl > 30 mL/min) AND *Sequential Compression Device (SCD) Assessment and Plan Problem List: (1) Encephalopathy ICD Code: G93.40 - Encephalopathy, unspecified (2) UTI (urinary tract infection) ICD Code: N39.0 - Urinary tract infection, site not specified Assessment and Plan Assessment and plan 56-year-old female admitted secondary to encephalopathy correlated with urinary tract infection Sepsis Tachycardia Leukocytosis Treat UTI with antibiotics IV hydration Follow vital signs closely Monitor on telemetry Follow CBC Urinary tract infection Start Rocephin Start metronidazole Follow urine culture Altered mental status Encephalopathy related to infection Treat infection as above Monitor for improvement Metastatic cancer Liver metastases Bone metastases Spine metastases Continue to follow with oncology as an outpatient May be contributory to metabolic disturbances Hypokalemia Hypocalcemia Monitor and replace as needed Anemia Follow CBC for now Transfusion to be considered if further decline is present Gen. anxiety disorder Xanax continued at home dosing HTN Follow BP Hyperlipidemia No change to baseline treatment Follow as an outpatient Chronic Hepatitis Hepatic Encephalopathy (mild) May be contributory Follow Ammonia level DVT Prophylaxis SCDs Anticoagulation deferred secondary to anemia Physician Certification 2 Midnight Certification Type: Admission for Inpatient Services Order for Inpatient Services The services are ordered in accordance with Medicare regulations or non- Medicare payer requirements, as applicable. In the case of services not specified as inpatient-only, they are appropriately provided as inpatient services in accordance with the 2-midnight benchmark. Estimated LOS (days): 3 days is the estimated time the patient will need to remain in the hospital, assuming treatment plan goals are met and no additional complications. Post-Hospital Plan: Home Problem Qualifiers (1) UTI (urinary tract infection): Qualified Codes: N39.0 - Urinary tract infection, site not specified; R31.9 - Hematuria, unspecified Alex Her MD Oct 15, 2017 13:55
[2017-10-15] MEDS ORDERED: NALOXONE HCL 0.4 MG/ML AMP IV PUSH PRN (14:00)
[2017-10-15] MEDS ORDERED: SODIUM CHLORIDE 0.9% FLUSH 10 ML FLUSH IV FLUSH PRN (14:00)
[2017-10-15] MEDS ORDERED: ONDANSETRON HCL 4 MG/2 ML VIAL IVP PRN (14:00)
[2017-10-15] MEDS ORDERED: MAGNESIUM HYDROXIDE SUSP 30 ML CUP PO PRN (14:00)
[2017-10-15] MEDS ORDERED: MORPHINE SULFATE 4 MG/ML INJ IV PUSH PRN ×2 (14:00)
[2017-10-15 14:55] VITALS: BP 132/60
[2017-10-15] MEDS: ALPRAZolam 0.25 MG TAB PO PRN (15:59)
[2017-10-15] MEDS: metroNIDAZOLE 500 MG INJ 100 ML IV SCH ×2 (15:59→21:57)
[2017-10-15] MEDS: traMADol HCL 50 MG TAB PO PRN (15:59)
[2017-10-15 17:05] VITALS: BP 114/57; PULSE 78; RESP 20; TEMP 98.4; O2SAT 99
[2017-10-15] MEDS: LACTOBACILLUS ACIDOPHILUS TAB PO SCH (18:07)
[2017-10-15 20:30] VITALS: BP 118/58; PULSE 88; RESP 17; TEMP 98.6; O2SAT 100
[2017-10-15 21:00] VITALS: PULSE 84
[2017-10-15] MEDS: SODIUM CHLORIDE 0.9% FLUSH 10 ML FLUSH IV FLUSH SCH (21:00)
[2017-10-16] VITALS (8 sets, daily range): BP systolic 99–131; BP diastolic 58–134; PULSE 77–95; RESP 16–18; TEMP 98–99; O2SAT 80–100
[2017-10-16] MEDS: metroNIDAZOLE 500 MG INJ 100 ML IV SCH (06:12)
[2017-10-16 08:04] LABS: BASOPHIL % 0.3 % (0.0-2.0); EOSINOPHIL % 0.3 % (0.0-4.0); HEMATOCRIT 25.3 % (35.0-46.0); LYMPH % 6.4 % (9.0-44.0); LYMPHOCYTE # 0.9 TH/MM3 (1.0-4.8); MEAN CELL VOLUME 97.3 FL (80.0-100.0); MEAN CORPUSCULAR HEMOGLOBIN 31.4 PG (27.0-34.0); MEAN CORPUSCULAR HGB CONC 32.3 % (32.0-36.0); MONO % 16.1 % (0.0-8.0); NEUT % 76.9 % (16.0-70.0); PLATELET COUNT 147 TH/MM3 (150-450); RED CELL DISTRIBUTION WIDTH 23.3 % (11.6-17.2); WHITE BLOOD COUNT 14.3 TH/MM3 (4.0-11.0)
[2017-10-16 08:08] LABS: HEMO FLAGS AUTO DIFF
[2017-10-16 08:34] LABS: ALKALINE PHOSPHATASE 148 U/L (45-117); ALT (GPT) 7 U/L (10-53); ANION GAP 6 MEQ/L (5-15); AST (GOT) 51 U/L (15-37); BLOOD UREA NITROGEN 5 MG/DL (7-18); CHLORIDE 112 MEQ/L (98-107); GLOMERULAR FILTRATION RATE 115 ML/MIN (>89); MAGNESIUM 1.8 MG/DL (1.5-2.5); POTASSIUM 3.8 MEQ/L (3.5-5.1); SODIUM (NA) 143 MEQ/L (136-145); TOTAL BILIRUBIN ADULT 0.5 MG/DL (0.2-1.0)
[2017-10-16] MEDS: SODIUM CHLORIDE 0.9% FLUSH 10 ML FLUSH IV FLUSH SCH ×2 (09:00→20:02)
[2017-10-16 09:07] LABS: SCAN/DIFF AUTO DIFF CONFIRMED
--- NOTE | 2017-10-16 09:59 | HHI.PR ---
Subjective Remarks Follow-up for confusion, urinary tract infection in a patient with a history of unknown primary cancer. Patient is currently doing well. Denies any fever or chills. She denies any dysuria or hematuria. Objective Vitals Vital Signs Date Time Temp Pulse Resp B/P (MAP) Pulse Ox O2 Delivery O2 Flow Rate FiO2 10/16/17 04:00 98.1 80 18 99/134 (122) 80 10/16/17 00:00 98.1 80 16 115/76 (89) 98 10/15/17 21:00 84 10/15/17 20:30 98.6 88 17 118/58 (78) 100 10/15/17 17:05 98.4 78 20 114/57 (76) 99 10/15/17 14:55 90 16 132/60 (84) 97 10/15/17 12:30 88 16 128/65 (86) 98 Room Air I/O 10/15/17 10/15/17 10/15/17 10/16/17 10/16/17 10/16/17 07:00 15:00 23:00 07:00 15:00 23:00 Intake Total 210 ml 120 ml Balance 210 ml 120 ml Intake Oral 120 ml IV Total 210 ml # Voids 2 # Bowel Movements 2 Result Diagram: 10/16/17 0740 10/16/17 0740 Imaging Last Impressions Head CT 10/15/17 0911 Signed Impressions: Service Date/Time: Sunday, October 15, 2017 09:28 - CONCLUSION: No acute intracranial disease. Brandon Montoya MD Objective Remarks GENERAL: Alert, NAD. SKIN: Warm and dry. HEAD: Normocephalic. EYES: No scleral icterus. No injection or drainage. NECK: Supple, trachea midline. No JVD or lymphadenopathy. CARDIOVASCULAR: Regular rate and rhythm without murmurs, gallops, or rubs. RESPIRATORY: Breath sounds equal bilaterally. No accessory muscle use. GASTROINTESTINAL: Abdomen soft, non-tender, nondistended. MUSCULOSKELETAL: No cyanosis, or edema. BACK: Nontender without obvious deformity. No CVA tenderness. Procedures None A/P Problem List: (1) Encephalopathy ICD Code: G93.40 - Encephalopathy, unspecified (2) UTI (urinary tract infection) ICD Code: N39.0 - Urinary tract infection, site not specified Assessment and Plan Mr. Klein is a 56-year-old female with a history of poorly differentiated metastatic carcinoma. 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 Patient denied any fever, chest pain, shortness of breath, nausea vomiting. She also denied any focal weakness or numbness and headache. She has chronic abdominal pain due to her cancer. - Acute encephalopathy - CT head unremarkable for any acute findings. - Possibly related to infection. - Possible urinary tract infection - Urinalysis indicated WBC 138. Large leukocyte Estrace and negative urine nitrite. - Follow urine culture results. - Patient is currently on ceftriaxone. She was also started on metronidazole. - No indication to continue metronidazole. - Gentle hydration with normal saline at 100 cc per hour. - Metastatic carcinoma of unknown origin - Continue tramadol for pain. Continue outpatient follow-up. Full code. Lovenox Problem Qualifiers (1) UTI (urinary tract infection): Qualified Codes: N39.0 - Urinary tract infection, site not specified; R31.9 - Hematuria, unspecified Lizzy Troncoso DO Oct 16, 2017 9:59 am
[2017-10-16] MEDS: cefTRIAXone INJ 1,000 MG in SODIUM CHLORIDE 0.9% INJ 100 ML IV SCH (10:27)
[2017-10-16] MEDS: SODIUM CHLOR 0.9% 1000 ML INJ 1,000 ML IV SCH ×2 (10:27→19:54)
[2017-10-16] MEDS: PANTOPRAZOLE SOD 40 MG DELAYED RELEASE TAB PO SCH (10:27)
[2017-10-16] MEDS: LACTOBACILLUS ACIDOPHILUS TAB PO SCH ×3 (10:27→16:41)
[2017-10-16] MEDS ORDERED: ENOXAPARIN SODIUM 40 MG/0.4 ML SYRINGE SQ SCH (12:00)
[2017-10-16] MEDS: traMADol HCL 50 MG TAB PO PRN ×2 (12:22→20:01)
[2017-10-16] MEDS: oxyCODONE/ACETAMINOPHEN 7.5 MG/325 MG TAB PO PRN ×2 (16:02→23:47)
[2017-10-16] MEDS ORDERED: OXYC1TAB35 PO (17:34)
[2017-10-16] MEDS ORDERED: LACT PO (17:34)
[2017-10-16] MEDS ORDERED: ALPR.25 PO (17:34)
--- NOTE | 2017-10-16 17:39 | HHI.FF ---
Face to Face Verification Diagnosis: (1) Metastatic cancer (2) Encephalopathy Physical Therapy Order: Evaluate and Treat, Improve ambulation, Strength and gait training Home Health Nursing Order: Medical education Signs/symptoms of disease process Medication education-adverse effect Nursing assessment with vital signs I have seen patient Charlie Klein on 10/16/17. My clinical findings support the need for the requested home health care services because: Ltd mobility - disease progression Patient has SOB Deconditioned w/ increased weakness Limited ability to care for self Need for psychosocial assistance Impaired cognition/judgement High risk of falls Infection w/ risk of complications I certify that my clinical findings support that this patient is homebound because: Unsteady gait/balance Unsafe to leave home unassisted Need for psychosocial assistance Unable to use public transportation Lizzy Troncoso DO Oct 16, 2017 17:39
[2017-10-16] MEDS: ALPRAZolam 0.25 MG TAB PO PRN (20:01)
[2017-10-17 00:15] VITALS: BP 128/66; PULSE 80; RESP 17; TEMP 98.9
[2017-10-17] MEDS: SODIUM CHLOR 0.9% 1000 ML INJ 1,000 ML IV SCH (05:13)
[2017-10-17 05:45] VITALS: BP 119/58; PULSE 78; RESP 17; TEMP 97.7; O2SAT 100
[2017-10-17 08:00] VITALS: PULSE 72
[2017-10-17] MEDS: PANTOPRAZOLE SOD 40 MG DELAYED RELEASE TAB PO SCH (08:25)
[2017-10-17] MEDS: LACTOBACILLUS ACIDOPHILUS TAB PO SCH (08:25)
[2017-10-17] MEDS: traMADol HCL 50 MG TAB PO PRN (08:26)
[2017-10-17] MEDS: SODIUM CHLORIDE 0.9% FLUSH 10 ML FLUSH IV FLUSH SCH (08:26)
--- NOTE | 2017-10-17 09:04 | HHI.DS ---
Discharge Summary Admission Date Oct 15, 2017 at 2:00 pm Discharge Date: Oct 17, 2017 Admitting Diagnosis (1) Encephalopathy ICD Code: G93.40 - Encephalopathy, unspecified Diagnosis: Principal (2) UTI (urinary tract infection) ICD Code: N39.0 - Urinary tract infection, site not specified Procedures None Brief History - From Admission Mrs. Cowan is a 56-year-old female. 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 She's been getting radiation to her spine and has had numerous bouts of chemotherapy in the past. Presently she's got no recent chemotherapy or radiation. She is brought in by her family secondary to confusion which has been progressive over the past 3 days. In the past she has had recurrent episodes of urinary tract infection with confusion. This is present again today. She also has a mildly elevated ammonia level which could be contributory. No other complaints at this time. She's not had a fever. She does have a high white blood cell count and tachycardia which in addition to her urinary tract infection qualifies her for sepsis. Other findings likely related to her present state are hypokalemia, hypocalcemia, and anemia. CBC/BMP: 10/16/17 0740 10/16/17 0740 Significant Findings Laboratory Tests Test 10/15/17 09:35 10/15/17 09:50 10/15/17 11:22 10/16/17 07:40 Urine Turbidity HAZY (CLEAR) Urine Protein 30 mg/dL (NEG-TRACE) Urine Occult Blood TRACE (NEG) Urine Leukocyte Esterase LARGE (NEG) Urine RBC 62 /hpf (0-3) Urine WBC 138 /hpf (0-5) Urine Bacteria OCC /hpf (NONE) Urine Mucus FEW /lpf (OCC) Urine Trichomonas OCC (NONE) White Blood Count 13.8 TH/MM3 (4.0-11.0) 14.3 TH/MM3 (4.0-11.0) Red Blood Count 2.70 MIL/MM3 (4.00-5.30) 2.60 MIL/MM3 (4.00-5.30) Hemoglobin 8.6 GM/DL (11.6-15.3) 8.2 GM/DL (11.6-15.3) Hematocrit 26.6 % (35.0-46.0) 25.3 % (35.0-46.0) Red Cell Distribution Width 23.7 % (11.6-17.2) 23.3 % (11.6-17.2) Neutrophils (%) (Auto) 72.5 % (16.0-70.0) 76.9 % (16.0-70.0) Lymphocytes (%) (Auto) 8.0 % (9.0-44.0) 6.4 % (9.0-44.0) Monocytes (%) (Auto) 18.8 % (0.0-8.0) 16.1 % (0.0-8.0) Neutrophils # (Auto) 10.0 TH/MM3 (1.8-7.7) 11.0 TH/MM3 (1.8-7.7) Monocytes # (Auto) 2.6 TH/MM3 (0-0.9) 2.3 TH/MM3 (0-0.9) Neutrophils % (Manual) 78 % (16-70) Lymphocytes % 7 % (9-44) Monocytes % 14 % (0-8) Neutrophils # (Manual) 10.9 TH/MM3 (1.8-7.7) Prothrombin Time 13.1 SEC (9.8-11.6) Ammonia 51 MCMOL/L (11-32) Creatinine 0.44 MG/DL (0.50-1.00) Random Glucose 72 MG/DL (74-106) Total Protein 5.8 GM/DL (6.4-8.2) Albumin 1.7 GM/DL (3.4-5.0) 2.0 GM/DL (3.4-5.0) Calcium Level 6.7 MG/DL (8.5-10.1) Alkaline Phosphatase 126 U/L (45-117) 148 U/L (45-117) Aspartate Amino Transf (AST/SGOT) 48 U/L (15-37) 51 U/L (15-37) Alanine Aminotransferase (ALT/SGPT) 6 U/L (10-53) 7 U/L (10-53) Potassium Level 3.1 MEQ/L (3.5-5.1) Chloride Level 117 MEQ/L (98-107) 112 MEQ/L (98-107) Carbon Dioxide Level 19.0 MEQ/L (21.0-32.0) Protein Corrected Calcium 7.3 MG/DL (8.5-10.1) Platelet Count 147 TH/MM3 (150-450) Lymphocytes # (Auto) 0.9 TH/MM3 (1.0-4.8) Blood Urea Nitrogen 5 MG/DL (7-18) PE at Discharge GENERAL: Alert, NAD. SKIN: Warm and dry. HEAD: Normocephalic. EYES: No scleral icterus. No injection or drainage. NECK: Supple, trachea midline. No JVD or lymphadenopathy. CARDIOVASCULAR: Regular rate and rhythm without murmurs, gallops, or rubs. RESPIRATORY: Breath sounds equal bilaterally. No accessory muscle use. GASTROINTESTINAL: Abdomen soft, non-tender, nondistended. MUSCULOSKELETAL: No cyanosis, or edema. BACK: Nontender without obvious deformity. No CVA tenderness. Pt update on day of discharge Patient is doing well. No acute concerns. No fever, chills. Ambulating well. Hospital Course Mr. Klein is a 56-year-old female with a history of poorly differentiated metastatic carcinoma. 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 Patient denied any fever, chest pain, shortness of breath, nausea vomiting. She also denied any focal weakness or numbness and headache. She has chronic abdominal pain due to her cancer. - Acute encephalopathy - CT head unremarkable for any acute findings. - Possibly related to infection. - Possible urinary tract infection - Urinalysis indicated WBC 138. Large leukocyte Estrace and negative urine nitrite. - culture growing Klebsiella. We will treat with Bactrim DS X 3 days. - Metastatic carcinoma of unknown origin - Continue tramadol for pain. Continue outpatient follow-up. Full code. Lovenox Pt Condition on Discharge: Good Discharge Disposition: Disch w/ Home Health Serv Discharge Time: <= 30 minutes Discharge Instructions DIET: Follow Instructions for: As Tolerated, No Restrictions Activities you can perform: Regular-No Restrictions Lizzy Troncoso DO Oct 17, 2017 9:04 am
[2017-10-17] MEDS ORDERED: BACT800T5 PO (09:05)
[2017-10-17] MEDS: cefTRIAXone INJ 1,000 MG in SODIUM CHLORIDE 0.9% INJ 100 ML IV SCH (10:00)
== END 2017-10-17 10:15 | disposition home health service (06) | DRG 871 ==
LOC: NEPC 08:00 → NEDA 14:00 → N05B 15:38
PROVIDERS: ADMIT Hospitalist; ATTEND Hospitalist
DX: A41.9 Sepsis, unspecified organism (principal); G93.40 Encephalopathy, unspecified; C78.7 Secondary malignant neoplasm of liver and intrahepatic bile duct; C79.51 Secondary malignant neoplasm of bone; E83.51 Hypocalcemia; C80.1 Malignant (primary) neoplasm, unspecified; K73.9 Chronic hepatitis, unspecified; N39.0 Urinary tract infection, site not specified; K72.90 Hepatic failure, unspecified without coma; M19.90 Unspecified osteoarthritis, unspecified site; F41.9 Anxiety disorder, unspecified; E78.5 Hyperlipidemia, unspecified; I10 Essential (primary) hypertension; E87.6 Hypokalemia; R00.0 Tachycardia, unspecified; I25.10 Atherosclerotic heart disease of native coronary artery without angina pectoris; D64.9 Anemia, unspecified; G89.3 Neoplasm related pain (acute) (chronic); B96.1 Klebsiella pneumoniae [K. pneumoniae] as the cause of diseases classified elsewhere; Z87.891 Personal history of nicotine dependence; Z92.21 Personal history of antineoplastic chemotherapy; Z92.3 Personal history of irradiation
CPT/HCPCS: 70450; 80053; 81001; 82140; 83735; 84100; 84443; 85007; 85025; 85027; 85610; 85730; 87077; 87086; 87186; 96374; 96375; J0610; J0696; J1650; J2405; J7030